=== PATIENT | male | born 1935 | race Caucasian/White ===

== ENCOUNTER 2016-09-20 18:39 | Emergency (ER) | payer MEDICARE ==
[~2016-09-20] VITALS: Ht 160 cm; Wt 61.0 kg
[~2016-09-20 18:39] MED LIST: ATEN50 PO; DOCU1CAP39 PO; HYDR10TA23 PO; OXYC1SOL5 PO; PANT20 PO; PRED10 PO; THERM PO
[2016-09-20 18:44] VITALS: BP 128/78; PULSE 73; RESP 16; TEMP 98.3; O2SAT 98
[2016-09-20 19:00] VITALS: BP_SYST 166; BP_SYST 168; BP_DIAS 90; BP_DIAS 91; PULSE 72; RESP 18; O2SAT 98
[2016-09-20] MEDS ORDERED: DOXA1TAB34 PO (19:10)
[2016-09-20] MEDS ORDERED: PRED10 PO (19:11)
[2016-09-20] MEDS ORDERED: ATEN50TA PO (19:11)
[2016-09-20] MEDS ORDERED: SODIUM CHLOR 0.9% 1000 ML INJ 1,000 ML IV SCH (19:30)
[2016-09-20] MEDS ORDERED: MORPHINE SULFATE 4 MG/ML INJ IV PUSH ONE ×2 (19:30→22:45)
[2016-09-20] MEDS ORDERED: ONDANSETRON HCL 4 MG/2 ML VIAL IVP ONE (19:30)
[2016-09-20 19:51] LABS: BLOOD, URINE SMALL (NEG); GLUCOSE,URINE NEG (NEG); KETONE, URINE NEG (NEG); NITRITE,URINE NEG (NEG); PH, URINE 5.5 (5.0-8.5)
--- NOTE | 2016-09-20 19:52 | PD ---
HPI Chief Complaint: Pain: Acute or Chronic Time Seen by Provider: 19:14 Travel History International Travel<30 days: No Contact w/Intl Traveler<30days: No Traveled to known affect area: No History of Present Illness HPI 81-year-old male presents to the emergency department by private transportation for complaint of low back pain. Patient underwent abdominal aortic aneurysm repair in 2014. Patient has done well. Patient has history of high blood pressure and tobacco use. Patient denies history of dyslipidemia or diabetes. Patient states the pain is activated and worsened by movement and at rest has no pain. No bladder or bowel dysfunction. No report of lower extremity numbness tingling or weakness or saddle anesthesia. Patient states pain with movement 7/10 in intensity. Asians had no chest pain or shortness of breath. Patient was seen by chiropractor ultrasound was done and showed a small proximal abdominal aortic aneurysmal dilatation of 3.1 cm performed 09/17/16. Symptoms are not worsening. Family members are planning on taking the patient to [place] and wanted to have him checked out before traveling. ON LICENSE OF [facility] Past Medical History Narrative Medical Hypertension, migraines, kidney stones, abdominal aortic aneurysm status post rupture and repair, tobaccoism,: Nursing notes reviewed Arthritis: Yes Asthma: No Autoimmune Disease: No Heart Rhythm Problems: No Cancer: No Cardiovascular Problems: Yes High Cholesterol: No Chest Pain: No Congestive Heart Failure: No COPD: No Cerebrovascular Accident: No Diminished Hearing: No Endocrine: No Gastrointestinal Disorders: Yes GERD: Yes Genitourinary: Yes Hiatal Hernia: No Hypertension: Yes Immune Disorder: No Kidney Stones: Yes Musculoskeletal: Yes Neurologic: Yes Psychiatric: No Reproductive: No Respiratory: Yes Migraines: Yes Renal Failure: No Seizures: No Sleep Apnea: No Ulcer: No Tetanus Vaccination: > 5 Years Influenza Vaccination: No Past Surgical History Abdominal Aneurysm Repair: Yes (2014) Abdominal Surgery: Yes (appendectomy and AAA repair) Cardiac Surgery: No Ear Surgery: No Endocrine Surgery: No Eye Surgery: No Genitourinary Surgery: No Gynecologic Surgery: No Oral Surgery: No Thoracic Surgery: No Other Surgery: Yes Social History Alcohol Use: No Tobacco Use: Yes (1 cigarette daily) Substance Use: No Allergies-Medications (Allergen,Severity, Reaction): Coded Allergies: No Known Allergies (Unverified , 09/20/16) Reported Meds & Prescriptions Reported Meds & Active Scripts Active Medrol Dosepak (Methylprednisolone) 4 Mg Dspk 4 Mg PO DIRECTED Per Pharmacist direction Lortab (Hydrocodone-Acetaminophen) 5-325 Mg Tab 1 Tab PO Q6H PRN Reported Prednisone 10 Mg Tab 10 Mg PO DAILY Atenolol 50 Mg Tab 50 Mg PO DAILY Doxazosin (Doxazosin Mesylate) 4 Mg Tab 4 Mg PO HS Review of Systems Except as stated in HPI: all other systems reviewed are Neg Physical Exam Narrative GENERAL: Well-developed well-nourished male in no acute distress no respiratory distress SKIN: Warm and dry. HEAD: Normocephalic. EYES: No scleral icterus. No injection or drainage. NECK: Supple, trachea midline. No JVD or lymphadenopathy. CARDIOVASCULAR: Regular rate and rhythm without murmurs, gallops, or rubs. Bilateral radial and dorsalis pedis pulses 2+ to palpation. RESPIRATORY: Breath sounds equal bilaterally. No accessory muscle use. GASTROINTESTINAL: Abdomen soft, non-tender, nondistended. Abdomen is soft nontender no guarding or rebound no palpable pulsatile mass. MUSCULOSKELETAL: No cyanosis, or edema. BACK: Nontender without obvious deformity except for reproducible tenderness over the left SI joint without soft tissue swelling. No CVA tenderness. Data Data Last Documented VS Vital Signs Date Time Temp Pulse Resp B/P Pulse Ox O2 Delivery O2 Flow Rate FiO2 09/21/16 00:10 64 18 167/82 100 Room Air 09/20/16 18:44 98.3 Orders Basic Metabolic Panel (Bmp) (09/20/16 19:28) Complete Blood Count With Diff (09/20/16 19:28) Lipase (09/20/16 19:28) Ua Includes Microscopic (09/20/16 19:28) Iv Access Insert/Monitor (09/20/16 19:28) Ecg Monitoring (09/20/16 19:28) Oximetry (09/20/16 19:28) Morphine Inj (Morphine Inj) (09/20/16 19:30) Ondansetron Inj (Zofran Inj) (09/20/16 19:30) Sodium Chlor 0.9% 1000 Ml Inj (Ns 1000 M (09/20/16 19:30) Cta Thor Abd Aorta W Iv C W3d (09/20/16 ) Iodixanol 320 Inj (Rad Ct) (Visipaque 32 (09/20/16 20:52) Sodium Chlor 0.9% 1000 Ml Inj (Ns 1000 M (09/20/16 22:45) Morphine Inj (Morphine Inj) (09/20/16 22:45) Labs Laboratory Tests Test 09/20/16 19:40 White Blood Count 12.2 TH/MM3 Red Blood Count 4.13 MIL/MM3 Hemoglobin 10.9 GM/DL Hematocrit 33.8 % Mean Corpuscular Volume 81.8 FL Mean Corpuscular Hemoglobin 26.4 PG Mean Corpuscular Hemoglobin 32.3 % Concent Red Cell Distribution Width 14.3 % Platelet Count 186 TH/MM3 Mean Platelet Volume 9.2 FL Neutrophils (%) (Auto) 80.5 % Lymphocytes (%) (Auto) 9.2 % Monocytes (%) (Auto) 5.1 % Eosinophils (%) (Auto) 3.2 % Basophils (%) (Auto) 2.0 % Neutrophils # (Auto) 9.9 TH/MM3 Lymphocytes # (Auto) 1.1 TH/MM3 Monocytes # (Auto) 0.6 TH/MM3 Eosinophils # (Auto) 0.4 TH/MM3 Basophils # (Auto) 0.2 TH/MM3 CBC Comment DIFF FINAL Differential Comment Urine Color YELLOW Urine Turbidity CLEAR Urine pH 5.5 Urine Specific [place] 1.017 Urine Protein NEG mg/dL Urine Glucose (UA) NEG mg/dL Urine Ketones NEG mg/dL Urine Occult Blood SMALL Urine Nitrite NEG Urine Bilirubin NEG Urine Leukocyte Esterase NEG Urine Squamous Epithelial 0-5 /hpf Cells Sodium Level 143 MEQ/L Potassium Level 4.4 MEQ/L Chloride Level 108 MEQ/L Carbon Dioxide Level 26.2 MEQ/L Anion Gap 9 MEQ/L Blood Urea Nitrogen 34 MG/DL Creatinine 1.90 MG/DL Estimat Glomerular Filtration 34 ML/MIN Rate Random Glucose 113 MG/DL Calcium Level 8.8 MG/DL Lipase 326 U/L [facility] Medical Decision Making Medical Screen Exam Complete: Yes Emergency Medical Condition: Yes Medical Record Reviewed: Yes Interpretation(s) Last Impressions Aorta CTA 09/20/16 0000 Signed Impressions: Service Date/Time: Tuesday, September 20, 2016 20:21 - CONCLUSION: 1. Infrarenal abdominal aortic aneurysm repair. No recurrent aneurysm. No dissection or evidence of leak. 2. Renal atrophy and this does appear slightly worse on the left in the antrum. 3. Unchanged left upper lobe pulmonary nodule. 4. Coronary artery calcification again noted. 5. Previous cholecystectomy. José Manuel Serna MD CBC & BMP Diagram 09/20/16 19:40 Vital Signs Date Time Temp Pulse Resp B/P Pulse Ox O2 Delivery O2 Flow Rate FiO2 09/20/16 21:00 70 18 148/87 98 Room Air 09/20/16 19:58 65 20 151/84 96 Room Air 09/20/16 19:56 20 09/20/16 19:00 72 18 166/91 98 Room Air 168/90 09/20/16 18:44 98.3 73 16 128/78 98 Differential Diagnosis Musculoskeletal pain, sacroiliitis, renal colic, UTI, abdominal aortic/iliac aneurysm, dissection Narrative Course 81-year-old male with recent outpatient abdominal ultrasound 09/17/16 attention aorta with evidence of 3.1 cm proximal abdominal aortic mild aneurysmal dilatation and bilateral iliac arterial dilatation 1.6 and 1.9; review of medical records indicates the patient was treated for ruptured abdominal aortic aneurysm in 2014 at which time CTA identified as well as ruptured 6.9 abdominal aortic aneurysm aneurysmal dilatation at the level of the renal arteries 3.4 x 3.3 and iliac vessel dilatation of right distal common iliac tube centimeters and left distal common iliac vessels 1.6 cm. These values seem essentially unchanged from findings by ultrasound performed just 09/17/16. Patient has reproducible left SI joint tenderness. Plan will be to obtain basic labs and perform imaging study assuming renal function is allowable. Patient resting comfortably states pain medication has worn off somewhat and blood pressure is mildly elevated given bolus of normal saline 1 L in view of receiving recent contrast with renal insufficiency; additional dose of pain medication administered Patient is stable for outpatient management and follow-up with his primary care provider regarding renal function. Imaging shows no evidence of recurrent aneurysm or leak from previous repair site or dissection. Patient stable for outpatient management. Patient is encouraged to discontinue any use of nonsteroidal anti-inflammatory medications. Diagnosis Primary Impression: Sacroiliitis Additional Impressions: H/O abdominal aortic aneurysm repair H/O abdominal aortic aneurysm Renal insufficiency Referrals: Primary Care Physician call for appointment Patient Instructions: General Instructions, Narcotic given in the ED Additional Instructions: Increase fluid hydration Do not use any nonsteroidal anti-inflammatory medication such as ibuprofen/Advil /Motrin or Naprosyn/naproxen/Aleve Take pain medication as prescribed as needed for low back pain/sacroiliitis Complete Medrol dosepak as prescribed Follow-up with your primary care provider regarding follow up of kidney function Return to the emergency for free concerns or change in condition Med/Other Pt SpecificInfo: Prescription(s) given Scripts Methylprednisolone Dosepak (Medrol Dosepak)4 Mg Dspk4 Mg PO DIRECTED #1 DSPK Ref 0 Per Pharmacist direction Prov:Silva Villegas MD 09/20/16 Hydrocodone-Acetaminophen (Lortab)5-325 Mg Tab1 Tab PO Q6H PRN (PAIN) #12 TAB Ref 0 Prov:Silva Villegas MD 09/20/16 Disposition: 01 DISCHARGE HOME Condition: Stable Silva Villegas MD Sep 20, 2016 19:52
[2016-09-20 19:53] LABS: AUTOMATED NEUTROPHIL # 9.9 TH/MM3 (1.8-7.7); BASOPHIL # 0.2 TH/MM3 (0-0.2); EOSINOPHIL # 0.4 TH/MM3 (0-0.4); EOSINOPHIL % 3.2 % (0.0-4.0); HEMATOCRIT 33.8 % (39.0-51.0); LYMPH % 9.2 % (9.0-44.0); LYMPHOCYTE # 1.1 TH/MM3 (1.0-4.8); MEAN CELL VOLUME 81.8 FL (80.0-100.0); MEAN CORPUSCULAR HEMOGLOBIN 26.4 PG (27.0-34.0); MEAN CORPUSCULAR HGB CONC 32.3 % (32.0-36.0); MONO % 5.1 % (0.0-8.0); NEUT % 80.5 % (16.0-70.0); PLATELET COUNT 186 TH/MM3 (150-450); RED BLOOD COUNT 4.13 MIL/MM3 (4.50-5.90); RED CELL DISTRIBUTION WIDTH 14.3 % (11.6-17.2); WHITE BLOOD COUNT 12.2 TH/MM3 (4.0-11.0)
[2016-09-20 19:58] VITALS: BP 151/84; PULSE 65; RESP 20; O2SAT 96
[2016-09-20 20:01] LABS: POTASSIUM 4.4 MEQ/L (3.5-5.1)
[2016-09-20 20:04] LABS: BICARBONATE 26.2 MEQ/L (21.0-32.0)
[2016-09-20 20:05] LABS: SQUAMOUS EPITHELIAL CELL URINE 0-5 /hpf (0-5); URINE COLOR YELLOW (YELLW/STRAW)
[2016-09-20 20:17] LABS: HEMO FLAGS DIFF FINAL
[2016-09-20] MEDS ORDERED: IODIXANOL 320 MG/ML 10 ML VIAL (for Rad CT) IV ONE (20:52)
[2016-09-20 21:00] VITALS: BP 148/87; PULSE 70; RESP 18; O2SAT 98
[2016-09-20 21:50] VITALS: BP 165/81; PULSE 64; RESP 18; O2SAT 98
--- NOTE | 2016-09-20 22:22 | RADHPO ---
EXAM DATE/TIME: 09/20/2016 20:21 [facility] COMPARISON: CTA THORACIC ABDOMINAL AORTA W 3D RECON, March 15, 2015, 8:04. INDICATIONS : Lower back pains. Patient has history of abdominal aortic aneurysm. IV CONTRAST: 50 cc Visipaque (iodixanol) IV RADIATION DOSE: 8.96 CTDIvol (mGy) MEDICAL HISTORY : Aneurysm, abdominal. Hypertension. Renal calculi. SURGICAL HISTORY : Abdominal aortic aneurysm repair. Appendectomy. ENCOUNTER: Initial ACUITY: 2 days PAIN SCALE: 8/10 LOCATION: Bilateral lower back. TECHNIQUE: Volumetric scanning was performed using a multi-row detector CT scanner. The data was post processed with a variety of visualization algorithms including full volume maximum intensity projection, multi -planar sliding thin slab reformation, curved planar reformation, and surface rendering techniques. Using automated exposure control and adjustment of the mA and/or kV according to patient size, radiat ion dose was kept as low as reasonably achievable to obtain optimal diagnostic quality images. FINDINGS: Since the prior CT, patient is now status post repair of an infrarenal abdominal aortic aneurysm. Nor mal caliber vessel is seen currently. There is mild mural thrombus. No dissection. No periaortic nancy a or hematoma seen. Liver, spleen, pancreas and adrenal glands within normal limits. Mild atrophy of both kidneys and lef t renal atrophy appears modestly worse in the interim. There is a 10 mm nodule the left upper lobe, unchanged. Coronary artery calcification again noted. CONCLUSION: 1. Infrarenal abdominal aortic aneurysm repair. No recurrent aneurysm. No dissection or evidence of l eak. 2. Renal atrophy and this does appear slightly worse on the left in the antrum. 3. Unchanged left upper lobe pulmonary nodule. 4. Coronary artery calcification again noted. 5. Previous cholecystectomy. José Manuel Serna MD on September 20, 2016 at 22:15 Board Certified Radiologist. This report was verified electronically.
[2016-09-20] MEDS ORDERED: SODIUM CHLOR 0.9% 1000 ML INJ 1,000 ML IV ONE (22:45)
[2016-09-20 23:00] VITALS: BP 160/92; PULSE 66; RESP 18; O2SAT 98
[2016-09-20] MEDS ORDERED: HYDR-3533 PO (23:08)
[2016-09-20] MEDS ORDERED: MEDR4PAK PO (23:08)
[2016-09-21 00:10] VITALS: BP 167/82; PULSE 64; RESP 18; O2SAT 100
== END 2016-09-21 00:22 | disposition home or self-care (01) ==
LOC: PHED 18:39
DX: M46.1 Sacroiliitis, not elsewhere classified (principal); N28.9 Disorder of kidney and ureter, unspecified; I10 Essential (primary) hypertension; F17.210 Nicotine dependence, cigarettes, uncomplicated; Z87.442 Personal history of urinary calculi
CPT/HCPCS: 71275; 74174; 80048; 81001; 83690; 85025; 96361; 96374; 96375; 99285; J2270; J2405; J7030; Q9967

== ENCOUNTER 2016-11-16 16:29 | Inpatient (IN) | payer OTHER, MEDICARE ==
[~2016-11-16] VITALS: Ht 160 cm; Wt 61.5 kg
[~2016-11-16 16:29] MED LIST changes: -ATEN50 PO; +ATEN50TA PO; -DOCU1CAP39 PO; +DOXA1TAB34 PO; +HYDR-3533 PO; -HYDR10TA23 PO; +MEDR4PAK PO; -OXYC1SOL5 PO; -PANT20 PO; -THERM PO
[2016-11-16] MEDS ORDERED: SODIUM CHLOR 0.9% 1000 ML INJ 1,000 ML IV ONE (16:43)
[2016-11-16 16:45] VITALS: BP 166/91; PULSE 128; RESP 18; TEMP 101.2; O2SAT 97
[2016-11-16] MEDS ORDERED: ACETAMINOPHEN 325 MG TAB PO ONE (16:45)
--- NOTE | 2016-11-16 16:46 | PD ---
HPI Chief Complaint: shaking chills Time Seen by Provider: 16:43 Travel History International Travel<30 days: No Contact w/Intl Traveler<30days: No Traveled to known affect area: No History of Present Illness HPI 81-year-old male patient presents to the ER today because he wasn't feeling well for the last day or 2, having chills, fevers, coughing. He denies any shortness of breath, chest pains, vomiting, or any other symptoms. He does not know any sick contacts. Modifying Factors: None Associated Signs & Symptoms: Shaking chills, fevers, coughing Risk Factors: None PFSH Past Medical History Arthritis: Yes Asthma: No Autoimmune Disease: No Heart Rhythm Problems: No Cancer: No Cardiovascular Problems: Yes High Cholesterol: No Chest Pain: No Congestive Heart Failure: No COPD: No Cerebrovascular Accident: No Diminished Hearing: No Endocrine: No Gastrointestinal Disorders: Yes GERD: Yes Genitourinary: Yes Hiatal Hernia: No Hypertension: Yes Immune Disorder: No Kidney Stones: Yes Musculoskeletal: Yes Neurologic: Yes Psychiatric: No Reproductive: No Respiratory: Yes Migraines: Yes Renal Failure: No Seizures: No Sleep Apnea: No Ulcer: No Past Surgical History Abdominal Aneurysm Repair: Yes (2014) Abdominal Surgery: Yes (appendectomy and AAA repair) Cardiac Surgery: No Ear Surgery: No Endocrine Surgery: No Eye Surgery: No Genitourinary Surgery: No Gynecologic Surgery: No Oral Surgery: No Thoracic Surgery: No Other Surgery: Yes Social History Alcohol Use: No Tobacco Use: Yes (1 cigarette daily) Substance Use: No Allergies-Medications (Allergen,Severity, Reaction): Coded Allergies: No Known Allergies (Unverified , 11/16/16) Reported Meds & Prescriptions Reported Meds & Active Scripts Active Reported Atorvastatin (Atorvastatin Calcium) 40 Mg Tab 40 Mg PO HS Prednisone 10 Mg Tab 10 Mg PO DAILY Atenolol 50 Mg Tab 50 Mg PO DAILY Doxazosin (Doxazosin Mesylate) 4 Mg Tab 4 Mg PO HS Review of Systems Except as stated in HPI: all other systems reviewed are Neg Physical Exam Narrative GENERAL: [Well-developed elderly male patient currently in moderate distress, shaking, awake and oriented 3. SKIN: Focused skin assessment warm/dry. HEAD: Atraumatic. Normocephalic. EYES: Pupils equal and round. No scleral icterus. No injection or drainage. ENT: No nasal bleeding or discharge. Mucous membranes pink and moist. NECK: Trachea midline. No JVD. CARDIOVASCULAR: Regular rate and rhythm. No murmur appreciated. RESPIRATORY: No accessory muscle use. Clear to auscultation. Breath sounds equal bilaterally. GASTROINTESTINAL: Abdomen soft, non-tender, nondistended. Hepatic and splenic margins not palpable. MUSCULOSKELETAL: No obvious deformities. No clubbing. No cyanosis. No edema. NEUROLOGICAL: Awake and alert. No obvious cranial nerve deficits. Motor grossly within normal limits. Normal speech. PSYCHIATRIC: Appropriate mood and affect; insight and judgment normal. Data Data Last Documented VS Vital Signs Date Time Temp Pulse Resp B/P Pulse Ox O2 Delivery O2 Flow Rate FiO2 11/16/16 16:50 101.2 128 18 166/91 97 Room Air Orders Complete Blood Count With Diff (11/16/16 16:43) Comprehensive Metabolic Panel (11/16/16 16:43) Lactic Acid Sepsis Protocol (11/16/16 16:43) Urinalysis - C+S If Indicated (11/16/16 16:43) Influenzae A/B Antigen (11/16/16 16:43) Blood Culture (11/16/16 16:43) Chest, Single Ap (11/16/16 16:43) Blood Glucose (11/16/16 16:43) Ecg Monitoring (11/16/16 16:43) Iv Access Insert/Monitor (11/16/16 16:43) Oximetry (11/16/16 16:43) Oxygen Administration (11/16/16 16:43) Acetaminophen (Tylenol) (11/16/16 16:45) Sodium Chlor 0.9% 1000 Ml Inj (Ns 1000 M (11/16/16 16:43) Vancomycin Inj (Vancomycin Inj) (11/16/16 17:31) Piperacil-Tazo 4.5 Gm Premix (Zosyn 4.5 (11/16/16 17:31) Labs Laboratory Tests Test 11/16/16 11/16/16 16:50 16:55 White Blood Count 14.4 TH/MM3 Red Blood Count 4.52 MIL/MM3 Hemoglobin 11.7 GM/DL Hematocrit 36.1 % Mean Corpuscular Volume 80.0 FL Mean Corpuscular Hemoglobin 25.8 PG Mean Corpuscular Hemoglobin 32.3 % Concent Red Cell Distribution Width 14.7 % Platelet Count 210 TH/MM3 Mean Platelet Volume 9.8 FL Neutrophils (%) (Auto) 83.7 % Lymphocytes (%) (Auto) 9.9 % Monocytes (%) (Auto) 5.2 % Eosinophils (%) (Auto) 0.9 % Basophils (%) (Auto) 0.3 % Neutrophils # (Auto) 12.2 TH/MM3 Lymphocytes # (Auto) 1.4 TH/MM3 Monocytes # (Auto) 0.7 TH/MM3 Eosinophils # (Auto) 0.1 TH/MM3 Basophils # (Auto) 0.0 TH/MM3 CBC Comment DIFF FINAL Differential Comment Sodium Level 139 MEQ/L Potassium Level 4.3 MEQ/L Chloride Level 105 MEQ/L Carbon Dioxide Level 23.8 MEQ/L Anion Gap 10 MEQ/L Blood Urea Nitrogen 26 MG/DL Creatinine 2.20 MG/DL Estimat Glomerular Filtration 29 ML/MIN Rate Random Glucose 121 MG/DL Calcium Level 9.0 MG/DL Total Bilirubin 0.3 MG/DL Aspartate Amino Transf 21 U/L (AST/SGOT) Alanine Aminotransferase 30 U/L (ALT/SGPT) Alkaline Phosphatase 101 U/L Total Protein 8.0 GM/DL Albumin 3.3 GM/DL Lactic Acid Level 5.4 mmol/L MDM Medical Decision Making Medical Screen Exam Complete: Yes Emergency Medical Condition: Yes Medical Record Reviewed: Yes Interpretation(s) Last 24 hours Impressions Chest X-Ray 11/16/16 1643 Signed Impressions: Service Date/Time: Wednesday, November 16, 2016 16:51 - CONCLUSION: No acute disease. José Manuel Hernández MD Laboratory Tests Test 11/16/16 11/16/16 16:50 16:55 White Blood Count 14.4 TH/MM3 (4.0-11.0) Hemoglobin 11.7 GM/DL (13.0-17.0) Hematocrit 36.1 % (39.0-51.0) Mean Corpuscular Hemoglobin 25.8 PG (27.0-34.0) Neutrophils (%) (Auto) 83.7 % (16.0-70.0) Neutrophils # (Auto) 12.2 TH/MM3 (1.8-7.7) Blood Urea Nitrogen 26 MG/DL (7-18) Creatinine 2.20 MG/DL (0.60-1.30) Estimat Glomerular Filtration 29 ML/MIN (>89) Rate Random Glucose 121 MG/DL (74-106) Albumin 3.3 GM/DL (3.4-5.0) Lactic Acid Level 5.4 mmol/L (0.4-2.0) Differential Diagnosis Fevers, chills, coughingpneumonia versus influenza versus sepsis versus bronchitis Narrative Course Lab work shows significant leukocytosis with lactate level V. Chest x-ray did not show any signs of acute pulmonary processes. IV antibiotics are initiated after cultures are done. At this point, my plan would be to admit the patient for sepsis. Case is discussed with Dr. Jenkins for admission. Diagnosis Primary Impression: Sepsis Additional Impression: Elevated lactic acid level Admitting Information Admitting Physician Requests: Admit Alexandru Murphy MD Nov 16, 2016 16:46
[2016-11-16 16:50] VITALS: BP 166/91; PULSE 128; RESP 18; TEMP 101.2; O2SAT 97
--- NOTE | 2016-11-16 17:02 | RADRPT ---
EXAM DATE/TIME: 11/16/2016 16:51 [facility] COMPARISON: CHEST SINGLE AP, March 28, 2015, 15:21. INDICATIONS : Fever and shortness of breath. MEDICAL HISTORY : Aneurysm, abdominal. Hypertension. Renal calculi. SURGICAL HISTORY : Abdominal aortic aneurysm repair. Appendectomy. ENCOUNTER: Initial ACUITY: 1 day PAIN SCORE: 0/10 LOCATION: Bilateral chest FINDINGS: A single view of the chest demonstrates the lungs to be symmetrically aerated without evidence of mas s, infiltrate or effusion. The cardiomediastinal contours are unremarkable. Osseous structures are intact. CONCLUSION: No acute disease. José Manuel Hernández MD on November 16, 2016 at 16:59 Board Certified Radiologist. This report was verified electronically.
[2016-11-16 17:08] LABS: AUTOMATED NEUTROPHIL # 12.2 TH/MM3 (1.8-7.7); BASOPHIL % 0.3 % (0.0-2.0); EOSINOPHIL # 0.1 TH/MM3 (0-0.4); EOSINOPHIL % 0.9 % (0.0-4.0); HEMATOCRIT 36.1 % (39.0-51.0); HEMO FLAGS DIFF FINAL; LYMPH % 9.9 % (9.0-44.0); LYMPHOCYTE # 1.4 TH/MM3 (1.0-4.8); MEAN CORPUSCULAR HEMOGLOBIN 25.8 PG (27.0-34.0); MEAN CORPUSCULAR HGB CONC 32.3 % (32.0-36.0); MONO % 5.2 % (0.0-8.0); NEUT % 83.7 % (16.0-70.0); PLATELET COUNT 210 TH/MM3 (150-450); RED BLOOD COUNT 4.52 MIL/MM3 (4.50-5.90); RED CELL DISTRIBUTION WIDTH 14.7 % (11.6-17.2); WHITE BLOOD COUNT 14.4 TH/MM3 (4.0-11.0)
[2016-11-16 17:19] LABS: CHLORIDE 105 MEQ/L (98-107); POTASSIUM 4.3 MEQ/L (3.5-5.1); SODIUM (NA) 139 MEQ/L (136-145)
[2016-11-16 17:23] LABS: ANION GAP 10 MEQ/L (5-15); BICARBONATE 23.8 MEQ/L (21.0-32.0); BLOOD UREA NITROGEN 26 MG/DL (7-18)
[2016-11-16 17:26] LABS: ALT (GPT) 30 U/L (12-78); AST (GOT) 21 U/L (15-37); GLOMERULAR FILTRATION RATE 29 ML/MIN (>89)
[2016-11-16] MEDS ORDERED: ATOR40TA16 PO (17:27)
[2016-11-16 17:28] LABS: TOTAL BILIRUBIN ADULT 0.3 MG/DL (0.2-1.0)
[2016-11-16 17:29] LABS: ALKALINE PHOSPHATASE 101 U/L (45-117)
[2016-11-16] MEDS ORDERED: VANCOMYCIN INJ 1,000 MG in SODIUM CHLOR 0.9% 250 ML INJ 250 ML IV STA (17:31)
[2016-11-16] MEDS ORDERED: PIPERACIL-TAZO 4.5 GM PREMIX 100 ML IV STA (17:31)
[2016-11-16 17:51] LABS: BLOOD, URINE SMALL (NEG); GLUCOSE,URINE NEG (NEG); KETONE, URINE NEG (NEG); NITRITE,URINE NEG (NEG); PH, URINE 5.5 (5.0-8.5)
[2016-11-16 18:01] LABS: URINE COLOR YELLOW (YELLW/STRAW)
[2016-11-16 18:02] LABS: COMMENT (UR) CULT NOT INDICATED; CULTURE IF INDICATED CULT NOT INDICATED; RBC, URINE 0-3 /hpf (0-3); SQUAMOUS EPITHELIAL CELL URINE 0-5 /hpf (0-5); WBC, URINE 0-2 /hpf (0-5)
[2016-11-16 18:30] VITALS: BP 148/76; PULSE 125; RESP 20; TEMP 103.1; O2SAT 98
[2016-11-16] MEDS ORDERED: Vancomycin Consult Pharmacy 1 EA OTHER SCH (18:30)
[2016-11-16] MEDS ORDERED: VANCOMYCIN INJ 1,000 MG in SODIUM CHLOR 0.9% 250 ML INJ 250 ML IV SCH (18:30)
--- NOTE | 2016-11-16 18:36 | HHI.HP ---
[facility] Primary [facility] Physician No Primary Care Physician Admission Diagnosis sepsis Diagnoses: Chief Complaint: Rigors Travel History International Travel<30 Days: No Contact w/Intl Traveler <30 Da: [place] Country Traveled to: Moved here from [place] within the past month. Traveled to Known Affected Are: No Sepsis Criteria Septic Shock Criteria: Lactic acid >=4 Criteria Outcome: Meets SIRS criteria History of Present Illness Patient is an 89 year old man with a history of HTN who had 2 days of fevers and chills at home. He was jevon to the er by his . No recent travel ( came from [place] over a month ago). Complains of headache but no meningel signs on exam. He has a fever of 101.2 and tachycardia with elevated white count and lactic acid in ER. He is alert and oriented and he is having rigors in the ER. He denies dysuria, cough, chest pain, nausea or diarrhea. No recent procedures and no dental pain. He is admitted for further evaluation and empiric antibiotics. Review of Systems Constitutional: COMPLAINS OF: Fever, Chills, DENIES: Diaphoretic episodes, Fatigue, Weight gain, Weight loss, Dizziness, Change in appetite, Night Sweats Endocrine: DENIES: Heat/cold intolerance, Polydipsia, Polyuria, Polyphagia Eyes: DENIES: Blurred vision, Diplopia, Eye inflammation, Eye pain, Vision loss , Photosensitivity, Double Vision Ears, nose, mouth, throat: DENIES: Tinnitus, Hearing loss, Vertigo, Nasal discharge, Oral lesions, Throat pain, Hoarseness, Ear Pain, Running Nose, Epistaxis, Sinus Pain, Toothache, Odynophagia Respiratory: DENIES: Apneas, Cough, Snoring, Wheezing, Hemoptysis, Sputum production, Shortness of breath Cardiovascular: DENIES: Chest pain, Palpitations, Syncope, Dyspnea on Exertion , PND, Lower Extremity Edema, Orthopnea, Claudication Gastrointestinal: DENIES: Abdominal pain, Black stools, Bloody stools, Constipation, Diarrhea, Nausea, Vomiting, Difficulty Swallowing, Anorexia Genitourinary: DENIES: Sexual dysfunction, Urinary frequency, Urinary incontinence, Urgency, Hematuria, Dysuria, Nocturia, Penile Discharge, Testicular Pain, Testicular Swelling Musculoskeletal: DENIES: Joint pain, Muscle aches, Stiffness, Joint Swelling, Back pain, Neck pain Integumentary: DENIES: Abnormal pigmentation, Nail changes, Pruritus, Rash Hematologic/lymphatic: DENIES: Bruising, Lymphadenopathy Immunologic/allergic: DENIES: Eczema, Urticaria Neurologic: DENIES: Abnormal gait, Headache, Localized weakness, Paresthesias, Seizures, Speech Problems, Tremor, Poor Balance Psychiatric: DENIES: Anxiety, Confusion, Mood changes, Depression, Hallucinations, Agitation, Suicidal Ideation, Homicidal Ideation, Delusions Except as stated in HPI: all other systems reviewed are Neg Past Family Social History Past Medical History HTN DVT Past Surgical History AAA repair Reported Medications Reviewed in the EMR, unsure of why he is taking steroids Allergies: Coded Allergies: No Known Allergies (Unverified , 11/16/16) Active Ordered Medications Reviewed in the EMR Family History Unknown per patient Social History , no tobacco no Etoh Physical Exam Vital Signs Vital Signs Date Time Temp Pulse Resp B/P Pulse Ox O2 Delivery O2 Flow Rate FiO2 11/16/16 16:50 101.2 128 18 166/91 97 Room Air 11/16/16 16:45 97 Room Air 11/16/16 16:45 101.2 128 18 166/91 97 11/16/16 16:45 97 Room Air Physical Exam GENERAL: This is a well-nourished, well-developed patient, rigors, eyes closed, alert SKIN: No rashes, ecchymoses or lesions. Cool and dry. HEAD: Atraumatic. Normocephalic. No temporal or scalp tenderness. EYES: Pupils equal round and reactive. Extraocular motions intact. No scleral icterus. No injection or drainage. ENT: Nose without bleeding, purulent drainage or septal hematoma. Throat without erythema, tonsillar hypertrophy or exudate. Uvula midline. Airway patent. NECK: Trachea midline. No JVD or lymphadenopathy. Supple, nontender, no meningeal signs. CARDIOVASCULAR:sinus tachycardia without murmurs, gallops, or rubs. RESPIRATORY: Clear to auscultation. Breath sounds equal bilaterally. No wheezes , rales, or rhonchi. GASTROINTESTINAL: Abdomen soft, non-tender, nondistended. No hepato-splenomegaly , or palpable masses. No guarding. MUSCULOSKELETAL: Extremities without clubbing, cyanosis, or edema. No joint tenderness, effusion, or edema noted. No calf tenderness. Negative Homans sign bilaterally. NEUROLOGICAL: Awake and alert. Cranial nerves II through XII intact. Motor and sensory grossly within normal limits. Five out of 5 muscle strength in all muscle groups. Normal speech. Laboratory Laboratory Tests Test 11/16/16 11/16/16 11/16/16 16:50 16:55 17:35 White Blood Count 14.4 Red Blood Count 4.52 Hemoglobin 11.7 Hematocrit 36.1 Mean Corpuscular Volume 80.0 Mean Corpuscular Hemoglobin 25.8 Mean Corpuscular Hemoglobin 32.3 Concent Red Cell Distribution Width 14.7 Platelet Count 210 Mean Platelet Volume 9.8 Neutrophils (%) (Auto) 83.7 Lymphocytes (%) (Auto) 9.9 Monocytes (%) (Auto) 5.2 Eosinophils (%) (Auto) 0.9 Basophils (%) (Auto) 0.3 Neutrophils # (Auto) 12.2 Lymphocytes # (Auto) 1.4 Monocytes # (Auto) 0.7 Eosinophils # (Auto) 0.1 Basophils # (Auto) 0.0 CBC Comment DIFF FINAL Differential Comment Sodium Level 139 Potassium Level 4.3 Chloride Level 105 Carbon Dioxide Level 23.8 Anion Gap 10 Blood Urea Nitrogen 26 Creatinine 2.20 Estimat Glomerular Filtration 29 Rate Random Glucose 121 Calcium Level 9.0 Total Bilirubin 0.3 Aspartate Amino Transf 21 (AST/SGOT) Alanine Aminotransferase 30 (ALT/SGPT) Alkaline Phosphatase 101 Total Protein 8.0 Albumin 3.3 Lactic Acid Level 5.4 Urine Color YELLOW Urine Turbidity CLEAR Urine pH 5.5 Urine Specific [place] 1.016 Urine Protein TRACE Urine Glucose (UA) NEG Urine Ketones NEG Urine Occult Blood SMALL Urine Nitrite NEG Urine Bilirubin NEG Urine Leukocyte Esterase NEG Urine RBC 0-3 Urine WBC 0-2 Urine Squamous Epithelial 0-5 Cells Microscopic Urinalysis Comment CULT NOT INDICATED Date/Time Procedure Status Source Growth 11/16/16 17:00 Influenza Types A,B Antigen (ALEXIS) - Final Complete Nasal Washing NEGATIVE FOR FLU A AND B ANTIGEN.... 11/16/16 16:55 Aerobic Blood Culture Received Blood Peripheral Pending 11/16/16 16:55 Anaerobic Blood Culture Received Blood Peripheral Pending Result Diagram: 11/16/16 1650 11/16/16 1650 Imaging Last Impressions Chest X-Ray 11/16/16 1643 Signed Impressions: Service Date/Time: Wednesday, November 16, 2016 16:51 - CONCLUSION: No acute disease. José Manuel Hernández MD Septic Shock Reassessment Heart: Other (Tachycardia) Lungs: Clear Skin: Warm Peripheral Pulses: Bounding Right Radial Bounding Left Radial Bounding Right Popliteal Bounding Left Popliteal Bounding Right Dorsalis Pedis Bounding Left Dorsalis Pedis Bounding Right Posterior Tibial Bounding Left Posterior Tibial Capillary Refill: Brisk Assessment and Plan Problem List: (1) Sepsis ICD Code: A41.9 Status: Acute Plan: SIRS criteria met, no source ID consulted empiric Rocephin and zosyn echo pending, cta r/o pe cxray, ua wnl, flu negative BC, EKG, Troponin pending no recent travel, no sick contacts (2) Hypertension ICD Code: I10 Status: Acute Plan: Home meds to continue hydralazine prn Assessment and Plan plan of care to be determined by hospital stay Code Status full code Discussed Condition With patient, spouse and ERMD Physician Certification 2 Midnight Certification Type: Admission for Inpatient Services Order for Inpatient Services The services are ordered in accordance with Medicare regulations or non- Medicare payer requirements, as applicable. In the case of services not specified as inpatient-only, they are appropriately provided as inpatient services in accordance with the 2-midnight benchmark. Estimated LOS (days): 4 4 days is the estimated time the patient will need to remain in the hospital, assuming treatment plan goals are met and no additional complications. Post-Hospital Plan: Home Roxana Jenkins MD Nov 16, 2016 18:36
[2016-11-16] MEDS ORDERED: IBUPROFEN 400 MG TAB PO ONE (18:45)
[2016-11-16 19:02] VITALS: BP 153/74; PULSE 128; RESP 22; TEMP 102.9; O2SAT 97
[2016-11-16 19:02] LABS: LACTIC ACID GHOST NOT REPORTABLE
[2016-11-16] MEDS: cefTRIAXone INJ 1,000 MG in SODIUM CHLORIDE 0.9% INJ 100 ML IV SCH (20:12)
[2016-11-16 20:14] LABS: CREATINE KINASE 37 U/L (39-308)
[2016-11-16 20:16] VITALS: BP 118/52; PULSE 129; RESP 22; TEMP 102.6; O2SAT 95
[2016-11-16] MEDS: DOXAZOSIN MESYLATE 4 MG TAB PO SCH (21:00)
[2016-11-16 22:00] VITALS: BP 122/69; PULSE 111; RESP 18; TEMP 100.5; O2SAT 95
[2016-11-17 00:48] VITALS: BP 134/82; PULSE 107; RESP 20; TEMP 96.5; O2SAT 98
[2016-11-17 08:00] VITALS: BP 171/99; PULSE 120; RESP 20; TEMP 101; O2SAT 96
[2016-11-17] MEDS: ATENOLOL 50 MG TAB PO SCH (08:16)
[2016-11-17] MEDS: predniSONE 10 MG TAB PO SCH (08:16)
[2016-11-17] MEDS: hydrALAZINE HCL 20 MG/ML VIAL IV PUSH PRN (08:16)
[2016-11-17] MEDS: cefTRIAXone INJ 1,000 MG in SODIUM CHLORIDE 0.9% INJ 100 ML IV SCH (08:16)
--- NOTE | 2016-11-17 08:29 | EKG ---
Date Performed: 11/16/2016 Time Performed: 16:42:05 PTAGE: 81 years EKG: SINUS TACHYCARDIA PATTERN CONSISTENT WITH PULMONARY DISEASE LEFT ANTERIOR FASCICULAR BLOCK INFERIOR MYOCARDIAL INFARCTION ABNORMAL ECG INTERPRETATION BASED ON A DEFAULT AGE OF 40 YEARS NO PREVIOUS TRACING DOCTOR: Johnnie Ivy Interpretating Date/Time 11/17/2016 08:27:23
[2016-11-17] MEDS ORDERED: NALOXONE HCL 0.4 MG/ML AMP IV PRN (08:30)
[2016-11-17] MEDS ORDERED: ACETAMINOPHEN/HYDROcodone 325 MG/5 MG TAB PO PRN (08:30)
[2016-11-17] MEDS ORDERED: ONDANSETRON HCL 4 MG/2 ML VIAL IV PRN (08:30)
[2016-11-17] MEDS: ACETAMINOPHEN/HYDROcodone 325 MG/10 MG TAB PO PRN ×2 (09:05→17:39)
[2016-11-17] MEDS: ACETAMINOPHEN 325 MG TAB PO PRN (09:06)
--- NOTE | 2016-11-17 11:20 | HHI.PR ---
Subjective Remarks Patient seen and evaluated today in follow-up for sepsis and encephalopathy. Patient does have bacteremia. MAXIMUM TEMPERATURE 102.9. Patient lactic acid has improved. Infectious disease consult is pending Objective Vitals Vital Signs Date Time Temp Pulse Resp B/P Pulse Ox O2 Delivery O2 Flow Rate FiO2 11/17/16 08:00 101.0 120 20 171/99 96 11/17/16 00:48 96.5 107 20 134/82 98 11/16/16 22:00 100.5 111 18 122/69 95 11/16/16 20:16 102.6 129 22 118/52 95 Room Air 11/16/16 19:02 Room Air 11/16/16 19:02 102.9 128 22 153/74 97 Room Air 11/16/16 18:30 103.1 125 20 148/76 98 Room Air 11/16/16 16:50 101.2 128 18 166/91 97 Room Air 11/16/16 16:45 97 Room Air 11/16/16 16:45 101.2 128 18 166/91 97 11/16/16 16:45 97 Room Air I/O 11/16/16 11/16/16 11/16/16 11/17/16 11/17/16 11/17/16 06:59 14:59 22:59 06:59 14:59 22:59 Intake Total 2550 ml 420 ml Output Total 200 ml Balance 2350 ml 420 ml Intake Oral 420 ml IV Total 2550 ml Output Urine Total 200 ml # Voids 2 # Bowel Movements 0 Result Diagram: 11/16/16 1650 11/17/16 0450 Imaging Last Impressions Chest X-Ray 11/16/16 1643 Signed Impressions: Service Date/Time: Wednesday, November 16, 2016 16:51 - CONCLUSION: No acute disease. José Manuel Hernández MD A/P Problem List: (1) Sepsis ICD Code: A41.9 Status: Acute Plan: Sepsis due to bacteremia, cultures continue to grow Continue empiric iv vancomycin and rocephin ID consult pending ct head pending Follow-up 2-D echo (2) Hypertension ICD Code: I10 Status: Acute Plan: Home meds to continue hydralazine Roxana You MD Nov 17, 2016 11:20
[2016-11-17] MEDS: cefTRIAXone INJ 2,000 MG in SODIUM CHLORIDE 0.9% INJ 100 ML IV SCH (11:36)
[2016-11-17 12:00] VITALS: BP 101/72; PULSE 74; RESP 18; TEMP 98.6; O2SAT 98
--- NOTE | 2016-11-17 14:54 | RADRPT ---
EXAM DATE/TIME: 11/17/2016 14:40 [facility] COMPARISON: No previous studies available for comparison. INDICATIONS : Cephalgia. RADIATION DOSE: 62.24 CTDIvol (mGy) MEDICAL HISTORY : Hypertension. Gastroesophageal reflux disease. Renal calculi. SURGICAL HISTORY : Abdominal aortic aneurysm repair. Appendectomy. ENCOUNTER: Initial ACUITY: 1 day PAIN SCALE: 4/10 LOCATION: cranial TECHNIQUE: Multiple contiguous axial images were obtained of the head. Using automated exposure control and adj ustment of the mA and/or kV according to patient size, radiation dose was kept as low as reasonably a chievable to obtain optimal diagnostic quality images. DICOM format image data is available electro nically for review and comparison. FINDINGS: CEREBRUM: The ventricles are normal for age. No evidence of midline shift, mass lesion, hemorrhage or acute in farction. No extra-axial fluid collections are seen. POSTERIOR FOSSA: The cerebellum and brainstem are intact. The 4th ventricle is midline. The cerebellopontine angle i s unremarkable. EXTRACRANIAL: The visualized portion of the orbits is intact. SKULL: The calvaria is intact. No evidence of skull fracture. CONCLUSION: Negative CT scan of the head. Josh Borjas MD FACR on November 17, 2016 at 14:52 Board Certified Radiologist. This report was verified electronically.
[2016-11-17 16:00] VITALS: BP 136/74; PULSE 77; RESP 19; TEMP 98.8; O2SAT 97
[2016-11-17 20:00] VITALS: BP 120/76; PULSE 81; RESP 20; TEMP 98.4; O2SAT 96
[2016-11-17] MEDS ORDERED: DIATRIZOATE MEGLUM/DIATRIZOATE SOD 9 ML CUP PO ONE (20:45)
--- NOTE | 2016-11-17 21:30 | MB ---
cc: MIRIAM MONTE MD DATE OF CONSULTATION 11/17/[address] Jenkins REASON FOR CONSULTATION Sepsis. HISTORY OF PRESENT ILLNESS This is an 81-year-old male who was brought to the emergency department by his because he developed shaking chills. The patient also had other symptoms including headache. The notes that [place] the [place] when the patient suddenly started feeling cold. She took him home and when they got home he continued to have cold feeding and shaking. She wanted to take him to the hospital but he refused and wanted to take Tylenol instead. He agreed with the that if he did not get better she could bring him to the emergency department for evaluation. The patient continued to have chills. His made an agreement with him to come to the hospital parking lot and that if he continued with symptoms he would be taken into the hospital which he agreed. In the packing lot he again had chills and developed a headache and had some sudden facial expression change and was less responsive verbally. The brought him in for evaluation and in the emergency department he had a temperature of 101.2 degrees. He also had tachycardia and white blood cell count was 14.4. He also had acute renal disease and lactic acid level was elevated at 5.4. Blood cultures were taken yesterday and he was started on antibiotics. Blood culture has gram-positive cocci in all four bottles with one bottle identified as strep species. The patient had temperature up to 103 degrees yesterday evening. The patient's noted that he has been complaining of headaches. She also states that he was complaining of some back pain when he would walk. CT scan of the head was performed and was unremarkable. The patient was complaining of cough over the past month. He moved to the from [place] about a month ago. Chest x-ray shows no acute cardiopulmonary disease. PAST MEDICAL HISTORY 1. Hypertension. 2. Deep venous thrombosis. 3. Abdominal aortic aneurysm repair with a tube graft for ruptured abdominal aneurysm in March 2015. ALLERGIES NO KNOWN DRUG ALLERGIES. MEDICATIONS 1. Vancomycin. 2. Ceftriaxone. 3. Prednisone. 4. Tenormin. 5. [place]el 10 p.r.n. 6. Cardura. SOCIAL HISTORY The patient is . Positive tobacco one cigarettes a day. No alcohol. No illicit drugs. FAMILY HISTORY Noncontributory. REVIEW OF SYSTEMS Pertinents mentioned above in history of present illness. Otherwise negative on 10-point review. PHYSICAL EXAMINATION GENERAL: This is a well-developed male who is in no acute distress. He is somewhat somnolent. VITAL SIGNS: Include temperature 98.8, BP 136/74, respirations 19, heart rate 77. HEENT: The head is atraumatic. Extraocular movements grossly intact, pupils reactive to light. No icterus. No conjunctival erythema. Oropharynx moist mucosa without lesions. NECK: Supple without adenopathy. LUNGS: Clear decreased breath sounds. HEART: Regular S1-S2. Heart sounds are distant. No audible murmurs. ABDOMEN: Bowel sounds present, obese, soft, nontender. Midline surgical scar appears intact. BACK: No tenderness on palpation. RECTAL: Not performed. EXTREMITIES: No clubbing or cyanosis or edema. Multiple ecchymotic areas at the upper extremities. SKIN: No rash. NEUROLOGIC: No gross focal findings. Cranial nerves II-XII intact. SKIN: No rash. PSYCHIATRIC: The patient is calm and cooperative. LABORATORY DATA WBC 14.4, platelets 210, hemoglobin 11.7, 83% neutrophils. Creatinine 2.0, BUN 32. Liver function tests normal. IMPRESSION 1. Sepsis due to gram-positive cocci with initial identification of one blood culture bottle showing Streptococcus species. The patient presented with severe sepsis with features including tachycardia, fever, leukocytosis, increased lactic acid, acute renal disease and altered mental status. The patient speaks mostly Romansh but interpretation was available via his and daughter. They seem to think that he may be a little better but he tends to joke around and during my evaluation of him he jumped up while I was examining his back and sort of played around with his daughter and the daughter mentioned that this is the way he tends to act sometimes. 2. Given altered mental status, meningitis would have to be considered. He has already been given IV antibiotics and by this time a lumbar puncture may not be necessary since he appears to be improving. If he has any deterioration consideration would have to be given to lumbar puncture. Also he has had abdominal aortic aneurysm repair and an echocardiogram will be ordered since he potentially could have endocarditis and also a CT scan of the abdomen should be done as well for further evaluation. 3. Continue to treat the patient with vancomycin. 4. Continue to treat the patient with ceftriaxone. 5. Monitor the blood cultures further. CT scan of abdomen and also 2-D echocardiogram order will be followed since it has already been placed. The patient will be followed up by Dr. Berger who will be assuming infectious disease care of the patient beginning tomorrow. Thank you for this consultation. Miriam Monte MD FD/CRISTIN /6:15 PM /8:30 PM
[2016-11-18] VITALS: BP 141/95; PULSE 79; RESP 20; TEMP 100.1; O2SAT 95
--- NOTE | 2016-11-18 00:16 | RADRPT ---
EXAM DATE/TIME: 11/17/2016 23:56 [facility] COMPARISON: CTA THORACIC ABDOMINAL AORTA W 3D RECON, September 20, 2016, 20:21. INDICATIONS : Fever, sepsis. ORAL CONTRAST: Prescribed oral contrast ingested. RADIATION DOSE: 11.52 CTDIvol (mGy) MEDICAL HISTORY : Hypertension. Renal calculi. Aneurysm, abdominal. SURGICAL HISTORY : CABG Abdominal aortic aneurysm repair. ENCOUNTER: Initial ACUITY: 1 day PAIN SCALE: 5/10 LOCATION: abdomen TECHNIQUE: Volumetric scanning of the abdomen was performed. Using automated exposure control and adjustment of the mA and/or kV according to patient size, radiation dose was kept as low as reasonably achievable to obtain optimal diagnostic quality images. DICOM format image data is available electronically for review and comparison. FINDINGS: Coronary artery calcification identified. Small effusion bilaterally and left lower lobe atelectasis and consolidation identified. Cholecystectomy clips are noted. Liver, spleen, pancreas, adrenal gland s are unremarkable. Left kidney is small in size as compared to the right. There is no hydronephrosis . Atherosclerotic calcifications of the aorta and iliac vasculature identified. There is dilatation o f the abdominal aorta measured 4.3 x 3.7 cm in AP and transverse dimension, and dilatation of the ramy ateral common iliac arteries up to 1.7 cm on the right and 1.8 cm on the left. Small bowel and large bowel are unremarkable. No adenopathy. Osseous structures are intact. CONCLUSION: 1. 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 2. Small left kidney. 3. Degenerative changes of the spine are noted and remote compression fractures of L2 and L3 identifi ed. 4. Small pleural effusions bilaterally and left lower lobe atelectasis/consolidation. Refugio Birmingham MD on November 18, 2016 at 0:11 Board Certified Radiologist. This report was verified electronically.
[2016-11-18] MEDS: VANCOMYCIN 1,000 MG/NS 250 ML IV SCH ×2 (01:15)
[2016-11-18] MEDS: DOXAZOSIN MESYLATE 4 MG TAB PO SCH ×2 (01:15→22:27)
[2016-11-18] MEDS: ACETAMINOPHEN 325 MG TAB PO PRN ×5 (01:15→18:20)
[2016-11-18 04:00] VITALS: BP 111/71; PULSE 77; RESP 20; TEMP 99.3; O2SAT 96
[2016-11-18 06:19] LABS: AUTOMATED NEUTROPHIL # 10.3 TH/MM3 (1.8-7.7); BASOPHIL # 0.1 TH/MM3 (0-0.2); BASOPHIL % 0.4 % (0.0-2.0); EOSINOPHIL # 0.8 TH/MM3 (0-0.4); EOSINOPHIL % 5.8 % (0.0-4.0); HEMATOCRIT 29.6 % (39.0-51.0); HEMO FLAGS DIFF FINAL; LYMPH % 10.8 % (9.0-44.0); LYMPHOCYTE # 1.5 TH/MM3 (1.0-4.8); MEAN CELL VOLUME 79.8 FL (80.0-100.0); MEAN CORPUSCULAR HEMOGLOBIN 25.6 PG (27.0-34.0); MEAN CORPUSCULAR HGB CONC 32.2 % (32.0-36.0); MONO % 6.1 % (0.0-8.0); NEUT % 76.9 % (16.0-70.0); PLATELET COUNT 158 TH/MM3 (150-450); RED BLOOD COUNT 3.71 MIL/MM3 (4.50-5.90); WHITE BLOOD COUNT 13.5 TH/MM3 (4.0-11.0)
[2016-11-18 06:24] LABS: POTASSIUM 3.7 MEQ/L (3.5-5.1)
[2016-11-18 06:29] LABS: BICARBONATE 23.5 MEQ/L (21.0-32.0)
[2016-11-18 08:00] VITALS: BP 147/82; PULSE 77; RESP 18; TEMP 97.6; O2SAT 100
[2016-11-18] MEDS: predniSONE 10 MG TAB PO SCH (08:13)
[2016-11-18] MEDS: cefTRIAXone INJ 2,000 MG in SODIUM CHLORIDE 0.9% INJ 100 ML IV SCH (08:14)
[2016-11-18] MEDS: ACETAMINOPHEN/HYDROcodone 325 MG/10 MG TAB PO PRN (08:23)
[2016-11-18] MEDS: ATENOLOL 50 MG TAB PO SCH (09:00)
--- NOTE | 2016-11-18 09:56 | ECHRPT ---
Indication: CONCLUSIONS Normal left ventricular size. Wall thickness is normal. The left ventricular systolic function is normal with an estimated ejection fraction of 65%. No regional wall motion abnormalities are present. Doppler parameters are consistent with impaired left ventricular relaxtion (grade 1 diastolic dysfun ction). The left atrial size is [id number] dilated. The right atrial size is upper limits of normal. Djpvz-bu-fvxy mitral valve regurgitation. Moderate mitral annular calcification. Aortic valve sclerosis is present. Trace aortic valve regurgitation. Mild aortic valve stenosis. Aortic valve mean gradient is 16 mmHg. There is trace tricuspid valve regurgitation. BP: 134 / 82 HR: Rhythm: Sinus MEASUREMENTS (Male / Female) Normal Values Technical Quality:Fair 2D ECHO LV Diastolic Diameter PLAX 3.5 cm 4.2 - 5.9 / 3.9 - 5.3 cm LV Systolic Diameter PLAX 2.4 cm IVS Diastolic Thickness 0.9 cm 0.6 - 1.0 / 0.6 - 0.9 cm LVPW Diastolic Thickness 0.9 cm 0.6 - 1.0 / 0.6 - 0.9 cm LV Relative Wall Thickness 0.5 LVOT Diameter 2.2 cm Aortic Root Diameter 2.9 cm LA Systolic Diameter LX 3.0 cm 3.0 - 4.0 / 2.7 - 3.8 cm DOPPLER AV Peak Velocity 284.0 cm/s AV Peak Gradient 32.3 mmHg AV Mean Gradient 16.0 mmHg AV Velocity Time Integral 49.1 cm LVOT Peak Velocity 79.9 cm/s LVOT Peak Gradient 2.6 mmHg LVOT Velocity Time Integral 14.7 cm AV Area Cont Eq vti 1.1 cm AV Area Cont Eq pk 1.1 cm Mitral E Point Velocity 93.8 cm/s Mitral A Point Velocity 162.0 cm/s Mitral E to A Ratio 0.6 LV E' Lateral Velocity 5.2 cm/s Mitral E to LV E' Lateral Ratio 18.1 LV E' Septal Velocity 8.0 cm/s Mitral E to LV E' Septal Ratio 11.7 TR Peak Velocity 202.0 cm/s TR Peak Gradient 16.3 mmHg PV Peak Velocity 87.2 cm/s PV Peak Gradient 3.0 mmHg FINDINGS LEFT VENTRICLE Normal left ventricular size. Wall thickness is normal. The left ventricular systolic function is hyperdynamic with an estimated ejection fraction of 65%. No regional wall motion abnormalities are present. Doppler parameters are consistent with impaired left ventricular relaxtion (grade 1 diastolic dysfun ction). RIGHT VENTRICLE Normal right ventricular size and systolic function. LEFT ATRIUM The left atrial size is [id number] dilated. RIGHT ATRIUM The right atrial size is upper limits of normal. ATRIAL SEPTUM The interatrial septum not well visualized. MITRAL VALVE Structurally normal mitral valve. Bqgrj-da-qdnj mitral valve regurgitation. Moderate mitral annular calcification. AORTIC VALVE Aortic valve sclerosis is present. Trace aortic valve regurgitation. Mild aortic valve stenosis. Aortic valve area is 1.1 cm. Aortic valve mean gradient is 16 mmHg. TRICUSPID VALVE The tricuspid valve is not well visualized. There is trace tricuspid valve regurgitation. Normal estimated pulmonary pressures. PULMONARY VALVE The pulmonary valve is not well visualized. VESSELS The inferior vena cava is normal in size. There is greater than 50% respiratory change in dimension of the inferior vena cava (normal). PERICARDIUM Possible trace pericardial effusion Diego Whiteside MD, FACC (Electronically Signed) Final Date:18 November 2016 09:55
--- NOTE | 2016-11-18 11:55 | HHI.PR ---
Subjective Remarks Patient seen and evaluated in follow-up for sepsis now known to have streptococcal bacteremia. Complaining of lumbar pain today. Mental status is greatly improved. MAXIMUM TEMPERATURE 100.1 Objective Vitals Vital Signs Date Time Temp Pulse Resp B/P Pulse Ox O2 Delivery O2 Flow Rate FiO2 11/18/16 10:32 20 11/18/16 09:23 20 11/18/16 08:00 97.6 77 18 147/82 100 11/18/16 04:00 99.3 77 20 111/71 96 11/18/16 00:00 100.1 79 20 141/95 95 11/17/16 20:00 98.4 81 20 120/76 96 11/17/16 16:00 98.8 77 19 136/74 97 11/17/16 12:00 98.6 74 18 101/72 98 I/O 11/17/16 11/17/16 11/17/16 11/18/16 11/18/16 11/18/16 07:00 15:00 23:00 07:00 15:00 23:00 Intake Total 420 ml 480 ml 480 ml 1000 ml Output Total 200 ml Balance 420 ml 480 ml 280 ml 1000 ml Intake Oral 420 ml 480 ml 480 ml 600 ml IV Total 400 ml Output Urine Total 200 ml # Voids 2 2 1 3 # Bowel Movements 0 1 1 Result Diagram: 11/18/1651411/18/1615 Objective Remarks GENERAL: This is a well-nourished, well-developed patient, alert without distress pleasant and back to baseline per family CARDIOVASCULAR: Regular rate and rhythm without murmurs, gallops, or rubs. RESPIRATORY: Clear to auscultation. Breath sounds equal bilaterally. No wheezes , rales, or rhonchi. GASTROINTESTINAL: Abdomen soft, non-tender, nondistended. Normal active bowel sounds MUSCULOSKELETAL: Tender in the lumbar region on exam, Extremities without clubbing, cyanosis, or edema. NEURO: Alert & Oriented x4 to person, place, time, situation. Moves all ext x4 A/P Problem List: (1) Sepsis ICD Code: A41.9 Status: Acute Plan: Sepsis due to streptococcal bacteremia, MRI lumbar spine pending rule out abscess Continue empiric iv vancomycin and rocephin ID consult appreciated ct head unremarkable Echocardiogram does show some diastolic dysfunction without evidence of vegetation (2) Hypertension ICD Code: I10 Status: Acute Plan: Home meds to continue hydralazine Roxana You MD Nov 18, 2016 11:55
[2016-11-18 12:00] VITALS: BP 135/89; PULSE 83; RESP 17; TEMP 97.9; O2SAT 99
[2016-11-18 16:00] VITALS: BP 163/93; PULSE 73; RESP 17; TEMP 97.8; O2SAT 96
[2016-11-18] MEDS ORDERED: GADOBENATE DIM PF 529 MG/ML 5 ML VIAL (for RAD MRI) IV ONE (17:22)
[2016-11-18 20:00] VITALS: BP 123/55; PULSE 73; RESP 18; TEMP 99.6; O2SAT 97
[2016-11-19] VITALS (7 sets, daily range): BP systolic 123–167; BP diastolic 72–97; PULSE 59–81; RESP 16–20; TEMP 97–100.6; O2SAT 95–99
[2016-11-19] MEDS: ACETAMINOPHEN 325 MG TAB PO PRN (00:48)
[2016-11-19] MEDS: predniSONE 10 MG TAB PO SCH (08:41)
[2016-11-19] MEDS: ATENOLOL 50 MG TAB PO SCH (08:41)
[2016-11-19] MEDS ORDERED: RESP: ALBUTEROL 2.5 MG/IPRATROPIUM 0.5 MG NEB (PRN) NEB (09:30)
--- NOTE | 2016-11-19 09:45 | HHI.PR ---
Subjective Remarks Follow-up sepsis/bacteremia 11/19/16-patient seen and examined, Tmax 100.6 at midnight however currently afebrile and denies any shortness of breath. Alert and oriented 3. Occasional back spasm. Lumbar spine MRI pending Objective Vitals Vital Signs Date Time Temp Pulse Resp B/P Pulse Ox O2 Delivery O2 Flow Rate FiO2 11/19/16 08:00 99.2 66 16 167/87 95 11/19/16 04:00 97.0 68 18 165/93 96 11/19/16 00:00 100.6 81 20 149/97 97 11/18/16 20:00 99.6 73 18 123/55 97 11/18/16 16:00 97.8 73 17 163/93 96 11/18/16 12:00 97.9 83 17 135/89 99 11/18/16 10:32 20 I/O 11/18/16 11/18/16 11/18/16 11/19/16 11/19/16 11/19/16 07:00 15:00 23:00 07:00 15:00 23:00 Intake Total 1000 ml 240 ml Output Total 500 ml 200 ml 300 ml Balance 1000 ml -500 ml 40 ml -300 ml Intake Oral 600 ml 240 ml IV Total 400 ml Output Urine Total 500 ml 200 ml 300 ml # Voids 3 2 # Bowel Movements 1 0 Result Diagram: 11/18/16 0515 11/18/16 0515 Imaging Last Impressions Head CT 11/17/16 0000 Signed Impressions: Service Date/Time: Thursday, November 17, 2016 14:40 - CONCLUSION: Negative CT scan of the head. Josh Borjas MD FACR Abdomen CT 11/17/16 0000 Signed Impressions: Service Date/Time: Thursday, November 17, 2016 23:56 - CONCLUSION: 1. 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 2. Small left kidney. 3. Degenerative changes of the spine are noted and remote compression fractures of L2 and L3 identified. 4. Small pleural effusions bilaterally and left lower lobe atelectasis/consolidation. Refugio Birmingham MD Chest X-Ray 11/16/16 1643 Signed Impressions: Service Date/Time: Wednesday, November 16, 2016 16:51 - CONCLUSION: No acute disease. José Manuel Hernández MD Objective Remarks GENERAL: NAD SKIN: Warm and dry. HEAD: Normocephalic. EYES: No scleral icterus. No injection or drainage. NECK: Supple, trachea midline. No JVD or lymphadenopathy. CARDIOVASCULAR: Regular rate and rhythm without murmurs, gallops, or rubs. RESPIRATORY: Breath sounds equal bilaterally. No accessory muscle use. GASTROINTESTINAL: Abdomen soft, non-tender, nondistended. MUSCULOSKELETAL: No cyanosis, or edema. BACK: Nontender without obvious deformity. No CVA tenderness. A/P Problem List: (1) Sepsis ICD Code: A41.9 Status: Acute (2) Hypertension ICD Code: I10 Status: Acute Assessment and Plan 81-year-old man with Gram positive bacteremia Repeat blood culture Continue with IV antibiotics including Rocephin and vancomycin Appreciate input from infectious disease specialist Sepsis Unknown source 2-D echo without any evidence of vegetation May consider NATHAN Lumbar spine MRI pending to rule out possible abscess versus osteomyelitis Metabolic encephalopathy Resolved Head CT was negative and admission Leukocytosis Steroid use versus infectious process WBC trending down, continue to monitor Acute on chronic kidney disease stage III Renal indices improving Continue to monitor and avoid all nephrotoxic drugs Hypochromic normocytic anemia of chronic disease H&H currently stable, continue to monitor Hypertension Labile BP this a.m. Currently on atenolol 50 mg daily and Cardura 4 mg at bedtime Hydralazine when necessary DVT prophylaxis: Bilateral SCDs Burke See MD Nov 19, 2016 09:45
[2016-11-19] MEDS: cefTRIAXone INJ 2,000 MG in SODIUM CHLORIDE 0.9% INJ 100 ML IV SCH (11:26)
[2016-11-19] MEDS: VANCOMYCIN 1,000 MG/NS 250 ML IV SCH ×2 (12:56)
--- NOTE | 2016-11-19 13:56 | RADRPT ---
EXAM DATE/TIME: 11/18/2016 17:12 [facility] COMPARISON: No previous studies available for comparison. Exam is severely limited by motion artifact. INDICATIONS : Abscess. CONTRAST: 12 cc Multihance (gadobenate) IV MEDICAL HISTORY : Hypertension. Gastroesophageal reflux disease. Renal calculi. SURGICAL HISTORY : Abdominal aortic aneurysm repair. ENCOUNTER: Subsequent ACUITY: 4-6 days PAIN SCORE: 5/10 LOCATION: Lower back. TECHNIQUE: Multiplanar multisequence MRI of the lumbar spine was performed with and without contrast. FINDINGS: The most caudal appearing lumbar vertebra is numbered as L5. VERTEBRAE: Homogeneous signal. Normal alignment. CONUS: Normal level and configuration. POST CONTRAST: No abnormal areas of contrast enhancement are seen. T12-L1: The thecal sac has a normal diameter. No evidence of disc bulge or protrusion. The neural foramina are patent bilaterally. L1-L2: Mild disc bulging is present with minimal spinal stenosis. Mild degenerative changes are present fac ets. L2-L3: Ridging is present with minimal spinal stenosis. There is no abnormal contrast enhancement. L3-L4: Severe spinal stenosis with near complete obliteration of the thecal space with bilateral neural fora lindsay encroachment. L4-L5: Extensive facet disease with bilateral from encroachment and moderate spinal stenosis. L5-S1: Extensive facet disease with mild bilateral neural foramina encroachment. Spinal stenosis is minimal . Degenerative changes are present at both SI joints. Retroperitoneum is unremarkable Normal aneurysm measures 3.5 cm. There is no abnormal contrast enhancement to suggest an epidural abscess or if so as abscess however significant motion artifact would obscure fine detail. CONCLUSION: Extensive degenerative changes and spinal stenosis. Spinal stenosis worse at L3-L4. There is no abnormal contrast enhancement. Josh Borjas MD FACR on November 18, 2016 at 17:54 Board Certified Radiologist. This report was verified electronically.
[2016-11-19] MEDS: ACETAMINOPHEN/HYDROcodone 325 MG/10 MG TAB PO PRN (17:33)
--- NOTE | 2016-11-19 20:06 | HHI.IDPN ---
Subjective Subjective Remarks ID Xcover for Dr Fernando pt is 81 yo with viridans step bacteremia pt co non productive cough, SOB and orthopnea having low grade fever 2 D echo w/o vegetaion Antibiotics vanco CFTX Allergies: Coded Allergies: No Known Allergies (Unverified , 11/16/16) Objective . Vital Signs Date Time Temp Pulse Resp B/P Pulse Ox O2 Delivery O2 Flow Rate FiO2 11/19/16 18:21 99.1 95 11/19/16 16:00 99.1 65 17 145/72 96 11/19/16 12:00 100.2 70 17 144/74 99 11/19/16 08:00 99.2 66 16 167/87 95 11/19/16 04:00 97.0 68 18 165/93 96 11/19/16 00:00 100.6 81 20 149/97 97 11/18/16 11/18/16 11/19/16 15:00 23:00 07:00 Intake Total 240 ml Output Total 500 ml 200 ml 300 ml Balance -500 ml 40 ml -300 ml Intake Oral 240 ml Output Urine Total 500 ml 200 ml 300 ml # Voids 2 # Bowel Movements 0 . Laboratory Tests Test 11/18/16 05:15 White Blood Count 13.5 TH/MM3 Red Blood Count 3.71 MIL/MM3 Hemoglobin 9.5 GM/DL Hematocrit 29.6 % Mean Corpuscular Volume 79.8 FL Mean Corpuscular Hemoglobin 25.6 PG Mean Corpuscular Hemoglobin 32.2 % Concent Red Cell Distribution Width 15.0 % Platelet Count 158 TH/MM3 Mean Platelet Volume 10.4 FL Neutrophils (%) (Auto) 76.9 % Lymphocytes (%) (Auto) 10.8 % Monocytes (%) (Auto) 6.1 % Eosinophils (%) (Auto) 5.8 % Basophils (%) (Auto) 0.4 % Neutrophils # (Auto) 10.3 TH/MM3 Lymphocytes # (Auto) 1.5 TH/MM3 Monocytes # (Auto) 0.8 TH/MM3 Eosinophils # (Auto) 0.8 TH/MM3 Basophils # (Auto) 0.1 TH/MM3 CBC Comment DIFF FINAL Differential Comment Laboratory Tests Test 11/18/16 05:15 Sodium Level 142 MEQ/L Potassium Level 3.7 MEQ/L Chloride Level 110 MEQ/L Carbon Dioxide Level 23.5 MEQ/L Anion Gap 9 MEQ/L Blood Urea Nitrogen 23 MG/DL Creatinine 2.00 MG/DL Estimat Glomerular Filtration 32 ML/MIN Rate Random Glucose 92 MG/DL Calcium Level 8.3 MG/DL Microbiology Date/Time Procedure Status Source Growth 11/19/16 09:30 Aerobic Blood Culture Received Blood Peripheral Pending 11/19/16 09:30 Anaerobic Blood Culture Received Blood Peripheral Pending 11/19/16 09:45 Aerobic Blood Culture Received Blood Peripheral Pending 11/19/16 09:45 Anaerobic Blood Culture Received Blood Peripheral Pending Imaging Last Impressions Head CT 11/17/16 0000 Signed Impressions: Service Date/Time: Thursday, November 17, 2016 14:40 - CONCLUSION: Negative CT scan of the head. Josh Borjas MD FACR Abdomen CT 11/17/16 0000 Signed Impressions: Service Date/Time: Thursday, November 17, 2016 23:56 - CONCLUSION: 1. 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 2. Small left kidney. 3. Degenerative changes of the spine are noted and remote compression fractures of L2 and L3 identified. 4. Small pleural effusions bilaterally and left lower lobe atelectasis/consolidation. Refugio Birmingham MD Chest X-Ray 11/16/16 1643 Signed Impressions: Service Date/Time: Wednesday, November 16, 2016 16:51 - CONCLUSION: No acute disease. José Manuel Hernández MD Physical Exam CONSTITUTIONAL/GENERAL: This is an adequately nourished patient, in no apparent distress. Sitting up in bed TUBES/LINES/DRAINS: SKIN: No jaundice, rashes, or lesions. . Skin temperature appropriate. Not diaphoretic. No Janeway leisons, no splinter hemorrages HEAD: Atraumatic. Normocephalic. EYES: Pupils equal and round and reactive. Extraocular motions intact. No scleral icterus. No injection or drainage. Fundi not examined. ENT: Hearing grossly normal. Nose without bleeding or purulent drainage. Oral mucosae without visible erythema, exudates, masses, or lesions. NECK: Trachea midline. Supple, nontender. CARDIOVASCULAR: Regular rate and rhythm without murmurs, gallops, or rubs. No JVD. Peripheral pulses symmetric. RESPIRATORY/CHEST: Symmetric, unlabored respirations.+ rhonchi to auscultation. Breath sounds equal bilaterally. GASTROINTESTINAL: Abdomen soft, non-tender, nondistended. No hepato-splenomegaly , or palpable masses. No guarding. Bowel sounds present. GENITOURINARY: Without palpable bladder distension. MUSCULOSKELETAL: Extremities without clubbing, cyanosis, or edema. No mottling or clubbing. LYMPHATICS: No palpable cervical or supraclavicular adenopathy. NEUROLOGICAL: Awake and alert. Motor and sensory grossly within normal limits. Follows commands. Clear speech. Moves all extremities. PSYCHIATRIC: No obvious anxiety/depression. no apparent hallucinations or other psychotic thought process. Assessment & Plan Remarks Hifgh grade viridans sterp bacteremia, source is unclear, community acquired - CT A/P negative Orthopnea LLL PNA persistent fever cont CFTX, vanco add levaquine CT chest consult electrophysiology tech for NATHAN fu repeat bloof clx dw dgtr @ b/s Flakita Berger MD Nov 19, 2016 20:06
[2016-11-19] MEDS: DOXAZOSIN MESYLATE 4 MG TAB PO SCH (21:23)
[2016-11-19] MEDS: LEVOFLOXACIN 750 MG PREMIX INJ 150 ML IV SCH (21:23)
[2016-11-19] MEDS: LACTOBACILLUS ACIDOPHILUS TAB PO SCH (21:23)
--- NOTE | 2016-11-19 21:30 | RADRPT ---
EXAM DATE/TIME: 11/19/2016 20:34 [facility] COMPARISON: CTA THORACIC ABDOMINAL AORTA W 3D RECON, September 20, 2016, 20:21. INDICATIONS : Sepsis, pneumonia RADIATION DOSE: 8.97 CTDIvol (mGy) MEDICAL HISTORY : Hypertension. Deep venous thrombosis. SURGICAL HISTORY : Abdominal aortic aneurysm repair. ENCOUNTER: Initial ACUITY: 2 weeks PAIN SCALE: 5/10 LOCATION: chest TECHNIQUE: Volumetric scanning of the chest was performed. Using automated exposure control and adjustment of t he mA and/or kV according to patient size, radiation dose was kept as low as reasonably achievable to obtain optimal diagnostic quality images. DICOM format image data is available electronically for r eview and comparison. Follow-up recommendations for detected pulmonary nodules are based at a minimum on nodule size and pa tient risk factors according to Fleischner Society Guidelines. FINDINGS: There is some linear atelectasis or scarring in both lungs and a nodular density in the left upper lo be, stable there is some peripheral consolidation at the left lung base laterally and posteriorly. Tr holly pleural fluid. No hilar, mediastinal axillary adenopathy. Moderate coronary calcifications. Mitral annular calcifica tions. Remote granulomatous disease noted with calcified mediastinal and hilar lymph nodes. No acute findings in the liver, spleen, adrenals or pancreas. Previous cholecystectomy.. CONCLUSION: 1. There is a thin rim of peripheral airspace disease in left lobe laterally and posteriorly which is a new finding since September. Trace pleural fluid. The apical scarring and nodular opacity on the left s table. 2. No adenopathy or pericardial effusion. Remote granulomatous disease. Moderate coronary calcificati ons. 3. Stable ectatic and tortuous thoracic aorta compared with Gemini CT. Roosevelt Beauchamp MD on November 19, 2016 at 21:22 Board Certified Radiologist. This report was verified electronically.
[2016-11-20] VITALS (14 sets, daily range): BP systolic 120–160; BP diastolic 71–89; PULSE 61–73; RESP 16–20; TEMP 97.7–98.4; O2SAT 94–100
[2016-11-20 07:44] LABS: AUTOMATED NEUTROPHIL # 5.6 TH/MM3 (1.8-7.7); BASOPHIL % 0.3 % (0.0-2.0); EOSINOPHIL # 0.5 TH/MM3 (0-0.4); EOSINOPHIL % 5.9 % (0.0-4.0); HEMO FLAGS DIFF FINAL; LYMPH % 17.1 % (9.0-44.0); LYMPHOCYTE # 1.3 TH/MM3 (1.0-4.8); MEAN CELL VOLUME 80.6 FL (80.0-100.0); MEAN CORPUSCULAR HEMOGLOBIN 25.5 PG (27.0-34.0); MEAN CORPUSCULAR HGB CONC 31.6 % (32.0-36.0); MONO % 6.4 % (0.0-8.0); NEUT % 70.3 % (16.0-70.0); PLATELET COUNT 186 TH/MM3 (150-450); RED BLOOD COUNT 3.73 MIL/MM3 (4.50-5.90); RED CELL DISTRIBUTION WIDTH 14.6 % (11.6-17.2); WHITE BLOOD COUNT 7.9 TH/MM3 (4.0-11.0)
[2016-11-20 07:46] LABS: POTASSIUM 3.7 MEQ/L (3.5-5.1)
[2016-11-20 07:49] LABS: BICARBONATE 24.2 MEQ/L (21.0-32.0)
[2016-11-20] MEDS: predniSONE 10 MG TAB PO SCH (08:54)
[2016-11-20] MEDS: LACTOBACILLUS ACIDOPHILUS TAB PO SCH ×2 (08:54→21:14)
[2016-11-20] MEDS: ATENOLOL 50 MG TAB PO SCH (08:54)
--- NOTE | 2016-11-20 09:58 | HHI.PR ---
Subjective Remarks Follow-up sepsis/bacteremia 11/19/16-patient seen and examined, Tmax 100.6 at midnight however currently afebrile and denies any shortness of breath. Alert and oriented 3. Occasional back spasm. Lumbar spine MRI pending 11/20/16-patient seen and examined, currently afebrile. Reports significant improvements of symptoms. Objective Vitals Vital Signs Date Time Temp Pulse Resp B/P Pulse Ox O2 Delivery O2 Flow Rate FiO2 11/20/16 09:13 97.7 11/20/16 08:56 65 11/20/16 08:55 18 139/89 11/20/16 00:00 98.1 68 20 120/71 97 11/19/16 20:00 98.3 59 18 123/84 97 11/19/16 18:21 99.1 95 11/19/16 16:00 99.1 65 17 145/72 96 11/19/16 12:00 100.2 70 17 144/74 99 I/O 11/19/16 11/19/16 11/19/16 11/20/16 11/20/16 11/20/16 06:59 14:59 22:59 06:59 14:59 22:59 Intake Total 701 ml 120 ml 240 ml Output Total 300 ml 500 ml Balance -300 ml -500 ml 701 ml 120 ml 240 ml Intake Oral 240 ml 120 ml 240 ml IV Total 461 ml Output Urine Total 300 ml 500 ml # Voids 2 2 # Bowel Movements 0 0 Result Diagram: 11/20/16 0643 11/20/16 0643 Imaging Last Impressions Chest CT 11/19/16 0000 Signed Impressions: Service Date/Time: Saturday, November 19, 2016 20:34 - CONCLUSION: 1. There is a thin rim of peripheral airspace disease in left lobe laterally and posteriorly which is a new finding since September. Trace pleural fluid. The apical scarring and nodular opacity on the left stable. 2. No adenopathy or pericardial effusion. Remote granulomatous disease. Moderate coronary calcifications. 3. Stable ectatic and tortuous thoracic aorta compared with September CT. Roosevelt Beauchamp MD Head CT 11/17/16 0000 Signed Impressions: Service Date/Time: Thursday, November 17, 2016 14:40 - CONCLUSION: Negative CT scan of the head. Josh Borjas MD FACR Abdomen CT 11/17/16 0000 Signed Impressions: Service Date/Time: Thursday, November 17, 2016 23:56 - CONCLUSION: 1. 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 2. Small left kidney. 3. Degenerative changes of the spine are noted and remote compression fractures of L2 and L3 identified. 4. Small pleural effusions bilaterally and left lower lobe atelectasis/consolidation. Refugio Birmingham MD Chest X-Ray 11/16/16 1643 Signed Impressions: Service Date/Time: Wednesday, November 16, 2016 16:51 - CONCLUSION: No acute disease. José Manuel Hernández MD Objective Remarks GENERAL: NAD SKIN: Warm and dry. HEAD: Normocephalic. EYES: No scleral icterus. No injection or drainage. NECK: Supple, trachea midline. No JVD or lymphadenopathy. CARDIOVASCULAR: Regular rate and rhythm without murmurs, gallops, or rubs. RESPIRATORY: Breath sounds equal bilaterally. No accessory muscle use. GASTROINTESTINAL: Abdomen soft, non-tender, nondistended. MUSCULOSKELETAL: No cyanosis, or edema. BACK: Nontender without obvious deformity. No CVA tenderness. A/P Problem List: (1) Sepsis ICD Code: A41.9 Status: Acute (2) Hypertension ICD Code: I10 Status: Acute Assessment and Plan 81-year-old man with Gram positive bacteremia-High grade viridans strep Repeat blood culture pending Continue with IV antibiotics including Rocephin, Levaquin and vancomycin Appreciate input from infectious disease specialist Sepsis 2-D echo without any evidence of vegetation Consult Cardiology for NATHAN Left lower lobe pneumonia CT chest noted and review with finding of a thin rim of peripheral airspace disease in left lobe laterally Continue current antibiotics Metabolic encephalopathy Resolved Head CT was negative and admission Leukocytosis-resolved Steroid use versus infectious process Acute on chronic kidney disease stage III Renal indices improving Continue to monitor and avoid all nephrotoxic drugs Hypochromic normocytic anemia of chronic disease H&H currently stable, continue to monitor Hypertension Currently on atenolol 50 mg daily and Cardura 4 mg at bedtime Hydralazine when necessary DVT prophylaxis: Bilateral SCDs Burke See MD Nov 20, 2016 09:58
[2016-11-20] MEDS ORDERED: DOCUSATE SODIUM 50 MG/SENNA 8.6 MG TAB PO PRN (10:00)
[2016-11-20] MEDS: cefTRIAXone INJ 2,000 MG in SODIUM CHLORIDE 0.9% INJ 100 ML IV SCH (11:14)
[2016-11-20] MEDS: DOXAZOSIN MESYLATE 4 MG TAB PO SCH (21:00)
[2016-11-20] MEDS ORDERED: PHARMACY ORDERED LAB ONE (23:45)
[2016-11-20] MEDS: hydrALAZINE HCL 20 MG/ML VIAL IV PUSH PRN (23:46)
[2016-11-21] VITALS (28 sets, daily range): BP systolic 108–137; BP diastolic 63–85; PULSE 60–86; RESP 16; TEMP 98.4–101.9; O2SAT 96–99
[2016-11-21] MEDS: ACETAMINOPHEN 325 MG TAB PO PRN ×2 (03:37→15:28)
[2016-11-21] MEDS: predniSONE 10 MG TAB PO SCH (08:48)
[2016-11-21] MEDS: LACTOBACILLUS ACIDOPHILUS TAB PO SCH ×2 (08:48→20:24)
[2016-11-21] MEDS: ATENOLOL 50 MG TAB PO SCH (08:48)
--- NOTE | 2016-11-21 10:17 | HHI.PR ---
Subjective Remarks Follow-up bacteremia, pneumonia. The patient denies chest pain, but does continue to report shortness of breath. Denies nausea or vomiting. Objective Vitals Vital Signs Date Time Temp Pulse Resp B/P Pulse Ox O2 Delivery O2 Flow Rate FiO2 11/21/16 06:03 62 11/21/16 05:00 63 11/21/16 04:14 68 11/21/16 03:40 99.4 69 16 125/77 97 11/21/16 03:31 68 11/21/16 02:00 68 11/21/16 01:00 68 11/21/16 00:28 70 11/20/16 23:54 21 11/20/16 23:48 98.4 65 16 160/79 100 11/20/16 23:00 68 11/20/16 22:21 68 11/20/16 21:00 68 11/20/16 20:30 98.2 66 16 151/81 99 11/20/16 20:30 71 11/20/16 20:00 98.1 70 16 144/84 96 11/20/16 16:00 97.9 67 20 147/86 95 11/20/16 15:11 73 11/20/16 14:20 64 11/20/16 12:31 97.7 61 20 135/81 94 I/O 11/20/16 11/20/16 11/20/16 11/21/16 11/21/16 11/21/16 07:00 15:00 23:00 07:00 15:00 23:00 Intake Total 120 ml 240 ml 320 ml 480 ml Output Total 300 ml 1075 ml Balance 120 ml 240 ml 20 ml -595 ml Intake Oral 120 ml 240 ml 320 ml 480 ml IV Total 0 ml Output Urine Total 300 ml 1075 ml # Voids 2 1 # Bowel Movements 0 Result Diagram: 11/20/16 0643 11/21/16 0621 Imaging Last Impressions Chest CT 11/19/16 0000 Signed Impressions: Service Date/Time: Saturday, November 19, 2016 20:34 - CONCLUSION: 1. There is a thin rim of peripheral airspace disease in left lobe laterally and posteriorly which is a new finding since September. Trace pleural fluid. The apical scarring and nodular opacity on the left stable. 2. No adenopathy or pericardial effusion. Remote granulomatous disease. Moderate coronary calcifications. 3. Stable ectatic and tortuous thoracic aorta compared with Gemini CT. Roosevelt Beauchamp MD Head CT 11/17/16 0000 Signed Impressions: Service Date/Time: Thursday, November 17, 2016 14:40 - CONCLUSION: Negative CT scan of the head. Josh Borjas MD FACR Abdomen CT 11/17/16 0000 Signed Impressions: Service Date/Time: Thursday, November 17, 2016 23:56 - CONCLUSION: 1. 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 2. Small left kidney. 3. Degenerative changes of the spine are noted and remote compression fractures of L2 and L3 identified. 4. Small pleural effusions bilaterally and left lower lobe atelectasis/consolidation. Refugio Birmingham MD Chest X-Ray 11/16/16 1643 Signed Impressions: Service Date/Time: Wednesday, November 16, 2016 16:51 - CONCLUSION: No acute disease. José Manuel Hernández MD Objective Remarks General: No acute distress. Heart: Regular rate and rhythm. No murmur. Lungs: Mild crackles on the left. Breathing is nonlabored. Abdomen: Soft, nontender, nondistended. Extremities: No lower extremity edema. Psych: Alert and oriented. Procedures None Urinary Catheter: No Vascular Central Line Catheter: No A/P Problem List: (1) Sepsis ICD Code: A41.9 Status: Acute (2) Hypertension ICD Code: I10 Status: Chronic (3) Bacteremia due to Streptococcus ICD Code: R78.81 Status: Acute (4) Metabolic encephalopathy ICD Code: G93.41 Status: Acute Assessment and Plan 1. High-grade viridans strep bacteremia: Repeat blood cultures are negative so far. Continue IV Rocephin, Levaquin, vancomycin. Appreciate infectious disease recommendations. Scheduled for NATHAN tomorrow. 2. Left lower lobe pneumonia: Continue antibiotics. 3. Sepsis: Secondary to pneumonia, bacteremia. 4. Acute on chronic kidney disease stage III: Improving. 5. Anemia of chronic disease, hypochromic normocytic: Stable H&H. 6. Hypertension: Continue atenolol, Cardura. Hydralazine as needed. 7. DVT prophylaxis: SCDs. Discussed with Dr. Knapp, cardiology, at bedside. Plan for NATHAN tomorrow. Hugh Ayala MD Nov 21, 2016 10:17
--- NOTE | 2016-11-21 11:20 | MB ---
cc: HARJINDER ANTONY MD DATE OF CONSULTATION: 11/21/2016 REASON FOR CONSULTATION: Evaluation for NATHAN. HISTORY OF PRESENT ILLNESS Mr. De Leon is a pleasant 81-year-old man who does have a history of hypertension. He recently has moved to the from [place] about a month ago. He reports he had several days of fever or chills at home that precipitated his emergency room visit. ID workup has revealed that the patient has high-grade Viridans strep bacteremia with an unclear source. Cardiology was subsequently consulted to evaluate for NATHAN. Of note the patient does report that he is having difficulty with one of his teeth. ALLERGIES: NO KNOWN DRUG ALLERGIES. CURRENT MEDICATIONS: Per the record. PAST MEDICAL HISTORY: The past medical history is significant for hypertension, DVT, abdominal aortic aneurysm repair. SOCIAL HISTORY The patient is and does not drink. He does smoke. FAMILY HISTORY Noncontributory. REVIEW OF SYSTEMS Except as mentioned in the HPI all 12 systems are negative. PHYSICAL EXAMINATION: On physical examination vital signs 98.6, 69, 16, 137/81. General: He is well-appearing man who is in no apparent distress. Neck: His neck is free from JVD. Lungs: Lungs are bilaterally clear to auscultation. Cardiovascular: He has a normal S1-S2, no rubs or gallops were appreciated. Abdomen: Soft. Extremities: Free from edema. I did not appreciate any splinter hemorrhages. Echocardiogram from 11/17/2016 shows normal LV function. There is no evidence for endocarditis on the surface echo. LABORATORY VALUES: Significant for a creatinine of 1.83. Hemoglobin is 9.5. IMPRESSION Evaluation for NATHAN - the patient does have positive blood culture and fever. The source is possibly from his teeth as he is having some denture difficulties. NATHAN for evaluation for endocarditis is a reasonable request. He will be set up and scheduled with my partner for NATHAN tomorrow. Harjinder Antony M.D. ADAM/SEBASTIAN /10:18 AM /11:10 AM
[2016-11-21] MEDS: cefTRIAXone INJ 2,000 MG in SODIUM CHLORIDE 0.9% INJ 100 ML IV SCH (12:00)
[2016-11-21] MEDS: DOXAZOSIN MESYLATE 4 MG TAB PO SCH (20:24)
[2016-11-21] MEDS: LEVOFLOXACIN 750 MG PREMIX INJ 150 ML IV SCH (20:24)
[2016-11-22] VITALS (25 sets, daily range): BP systolic 113–146; BP diastolic 66–82; PULSE 65–85; RESP 16–18; TEMP 98.5–98.9; O2SAT 95–99
[2016-11-22] MEDS ORDERED: CHLORHEXIDINE GLUCONATE 2 % 1 PACK (2 CLOTHS) TOPICAL PRN (02:15)
[2016-11-22] MEDS ORDERED: INSULIN HUMAN REGULAR 1,000 UNITS/10 ML VIAL SQ PRN (02:15)
[2016-11-22] MEDS ORDERED: LACTATED RINGER'S 1000 ML IV PRN (02:15)
[2016-11-22] MEDS ORDERED: SODIUM CHLORID 0.9% 500 ML IV PRN (02:15)
[2016-11-22] MEDS ORDERED: POVIDONE IODINE 5% (ANTISEPSIS KIT) 4 APPLICATIONS EACH NARE PRN (02:15)
[2016-11-22] MEDS: ATENOLOL 50 MG TAB PO SCH (08:19)
[2016-11-22] MEDS: LACTOBACILLUS ACIDOPHILUS TAB PO SCH ×2 (08:19→20:26)
[2016-11-22] MEDS: predniSONE 10 MG TAB PO SCH (08:20)
[2016-11-22 08:21] LABS: AUTOMATED NEUTROPHIL # 7.7 TH/MM3 (1.8-7.7); BASOPHIL # 0.1 TH/MM3 (0-0.2); BASOPHIL % 0.5 % (0.0-2.0); EOSINOPHIL # 0.5 TH/MM3 (0-0.4); EOSINOPHIL % 5.2 % (0.0-4.0); HEMATOCRIT 30.4 % (39.0-51.0); LYMPH % 14.5 % (9.0-44.0); LYMPHOCYTE # 1.5 TH/MM3 (1.0-4.8); MEAN CELL VOLUME 78.9 FL (80.0-100.0); MEAN CORPUSCULAR HEMOGLOBIN 25.9 PG (27.0-34.0); MEAN CORPUSCULAR HGB CONC 32.9 % (32.0-36.0); MONO % 6.6 % (0.0-8.0); NEUT % 73.2 % (16.0-70.0); PLATELET COUNT 229 TH/MM3 (150-450); RED BLOOD COUNT 3.86 MIL/MM3 (4.50-5.90); RED CELL DISTRIBUTION WIDTH 15.3 % (11.6-17.2); WHITE BLOOD COUNT 10.5 TH/MM3 (4.0-11.0)
--- NOTE | 2016-11-22 08:30 | HHI.PR ---
Subjective Remarks Follow up bacteremia, pneumonia. Patient scheduled for NATHAN at noon. Denies chest pain, dyspnea, nausea, vomiting. Does report diarrhea. Per nursing, patient had one loose stool overnight. Objective Vitals Vital Signs Date Time Temp Pulse Resp B/P Pulse Ox O2 Delivery O2 Flow Rate FiO2 11/22/16 06:00 72 11/22/16 05:00 73 11/22/16 04:00 68 11/22/16 03:20 98.9 75 16 127/76 96 11/22/16 03:00 79 11/22/16 02:00 68 11/22/16 01:00 74 11/22/16 00:00 65 11/21/16 23:40 99.4 74 16 108/63 97 11/21/16 23:00 75 11/21/16 22:00 74 11/21/16 21:00 70 11/21/16 20:00 70 11/21/16 19:50 98.4 69 16 115/76 97 11/21/16 19:00 70 11/21/16 18:00 84 11/21/16 17:47 16 11/21/16 17:22 99.3 11/21/16 17:00 80 11/21/16 16:00 86 11/21/16 15:00 101.9 75 16 134/85 99 11/21/16 15:00 70 11/21/16 14:00 76 11/21/16 13:00 78 11/21/16 12:00 74 11/21/16 11:00 66 11/21/16 11:00 98.8 74 16 133/79 96 11/21/16 10:00 68 11/21/16 09:00 66 I/O 11/21/16 11/21/16 11/21/16 11/22/16 11/22/16 11/22/16 07:00 15:00 23:00 07:00 15:00 23:00 Intake Total 480 ml 580 ml 730 ml Output Total 1075 ml 400 ml 200 ml Balance -595 ml 180 ml 530 ml Intake Oral 480 ml 480 ml 480 ml IV Total 0 ml 100 ml 250 ml Output Urine Total 1075 ml 400 ml 200 ml # Voids 1 # Bowel Movements 1 1 Result Diagram: 11/20/16 0643 11/21/16 0621 Imaging Last Impressions Chest CT 11/19/16 0000 Signed Impressions: Service Date/Time: Saturday, November 19, 2016 20:34 - CONCLUSION: 1. There is a thin rim of peripheral airspace disease in left lobe laterally and posteriorly which is a new finding since September. Trace pleural fluid. The apical scarring and nodular opacity on the left stable. 2. No adenopathy or pericardial effusion. Remote granulomatous disease. Moderate coronary calcifications. 3. Stable ectatic and tortuous thoracic aorta compared with Gemini CT. Roosevelt Beauchamp MD Head CT 11/17/16 0000 Signed Impressions: Service Date/Time: Thursday, November 17, 2016 14:40 - CONCLUSION: Negative CT scan of the head. Josh Borjas MD FACR Abdomen CT 11/17/16 0000 Signed Impressions: Service Date/Time: Thursday, November 17, 2016 23:56 - CONCLUSION: 1. 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 2. Small left kidney. 3. Degenerative changes of the spine are noted and remote compression fractures of L2 and L3 identified. 4. Small pleural effusions bilaterally and left lower lobe atelectasis/consolidation. Refugio Birmingham MD Chest X-Ray 11/16/16 1643 Signed Impressions: Service Date/Time: Wednesday, November 16, 2016 16:51 - CONCLUSION: No acute disease. José Manuel Hernández MD Objective Remarks General: No acute distress. Heart: Regular rate and rhythm. No murmur. Lungs: Mild crackles on the left. Breathing is nonlabored. Abdomen: Soft, nontender, nondistended. Extremities: No lower extremity edema. Psych: Alert and oriented. Procedures None Urinary Catheter: No Vascular Central Line Catheter: No A/P Problem List: (1) Sepsis ICD Code: A41.9 Status: Resolved (2) Hypertension ICD Code: I10 Status: Chronic (3) Bacteremia due to Streptococcus ICD Code: R78.81 Status: Acute (4) Metabolic encephalopathy ICD Code: G93.41 Status: Acute Assessment and Plan 1. High-grade viridans strep bacteremia: Repeat blood cultures are negative so far. Continue IV Rocephin, Levaquin, vancomycin. Appreciate infectious disease recommendations. Scheduled for NATHAN today. 2. Left lower lobe pneumonia: Continue antibiotics. 3. Sepsis: Resolved. Secondary to pneumonia, bacteremia. 4. Acute on chronic kidney disease stage III: Improving. Repeat labs are pending this morning. 5. Anemia of chronic disease, hypochromic normocytic: Stable H&H. Labs are pending. 6. Hypertension: Continue atenolol, Cardura. Hydralazine as needed. 7. DVT prophylaxis: SCDs. Hugh Ayala MD Nov 22, 2016 08:30
[2016-11-22 08:32] LABS: HEMO FLAGS AUTO DIFF
[2016-11-22 08:42] LABS: BICARBONATE 23.9 MEQ/L (21.0-32.0); POTASSIUM 3.6 MEQ/L (3.5-5.1)
[2016-11-22 10:32] LABS: SCAN/DIFF AUTO DIFF CONFIRMED
[2016-11-22] MEDS: cefTRIAXone INJ 2,000 MG in SODIUM CHLORIDE 0.9% INJ 100 ML IV SCH (12:47)
--- NOTE | 2016-11-22 13:58 | ECHRPT ---
Indication: SEPSIS, ENDOCARDITIS CONCLUSIONS Normal LV systolic function EF 60% No wall motion abnormalites No significant valvulopathies No masses, thrombus or vegetation identified BP: / HR: Rhythm: Sinus Technical Quality:Good Medications Complications Proc. Components FINDINGS LEFT VENTRICLE The left ventricular systolic function is normal with an estimated ejection fraction in the range of 55-60%. ATRIAL APPENDAGES Normal left atrial appendage size with no evidence of thrombus formation. MITRAL VALVE Structurally normal mitral valve. No mitral valve stenosis or regurgitation. No visible vegetations. AORTIC VALVE Aortic valve sclerosis is present. No aortic valve regurgitation. No visible vegetations. TRICUSPID VALVE Structurally normal tricuspid valve. No visible vegetations. VESSELS No visible vegetations. Johnnie Ivy MD (Electronically Signed) Final Date:22 November 2016 13:57
[2016-11-22] MEDS: DOXAZOSIN MESYLATE 4 MG TAB PO SCH (20:26)
[2016-11-23 03:59] VITALS: BP 110/56; PULSE 64; RESP 18; TEMP 98.2; O2SAT 94
[2016-11-23 08:00] VITALS: BP 119/70; PULSE 73; RESP 14; TEMP 98.3; O2SAT 99
[2016-11-23] MEDS: ATENOLOL 50 MG TAB PO SCH (08:28)
[2016-11-23] MEDS: LACTOBACILLUS ACIDOPHILUS TAB PO SCH ×2 (08:28→22:07)
[2016-11-23] MEDS: predniSONE 10 MG TAB PO SCH (08:28)
[2016-11-23 12:00] VITALS: BP 126/67; PULSE 65; PULSE 70; RESP 16; TEMP 97.9; O2SAT 98
--- NOTE | 2016-11-23 12:05 | HHI.PR ---
Subjective Remarks Follow-up pneumonia, bacteremia. NATHAN was negative. The patient states that he wants to go home today. He denies chest pain, cough, dyspnea, nausea, vomiting. Objective Vitals Vital Signs Date Time Temp Pulse Resp B/P Pulse Ox O2 Delivery O2 Flow Rate FiO2 11/23/16 08:00 98.3 73 14 119/70 99 11/23/16 03:59 98.2 64 18 110/56 94 11/22/16 22:00 69 11/22/16 20:00 98.7 72 18 121/72 99 11/22/16 20:00 98.5 69 18 146/66 98 11/22/16 18:21 76 11/22/16 17:17 76 11/22/16 16:27 72 11/22/16 15:23 85 11/22/16 15:07 98.7 73 17 113/78 97 11/22/16 14:47 73 11/22/16 13:29 70 11/22/16 12:34 69 I/O 11/22/16 11/22/16 11/22/16 11/23/16 11/23/16 11/23/16 07:00 15:00 23:00 07:00 15:00 23:00 Intake Total 730 ml 367 ml 180 ml Output Total 200 ml 525 ml 350 ml Balance 530 ml -158 ml -170 ml Intake Oral 480 ml 240 ml 180 ml IV Total 250 ml 127 ml Output Urine Total 200 ml 525 ml 350 ml # Voids 1 # Bowel Movements 1 1 0 Result Diagram: 11/22/16 0649 11/23/16 1003 Imaging Last Impressions Chest CT 11/19/16 0000 Signed Impressions: Service Date/Time: Saturday, November 19, 2016 20:34 - CONCLUSION: 1. There is a thin rim of peripheral airspace disease in left lobe laterally and posteriorly which is a new finding since September. Trace pleural fluid. The apical scarring and nodular opacity on the left stable. 2. No adenopathy or pericardial effusion. Remote granulomatous disease. Moderate coronary calcifications. 3. Stable ectatic and tortuous thoracic aorta compared with Gemini CT. Roosevelt Beauchamp MD Head CT 11/17/16 0000 Signed Impressions: Service Date/Time: Thursday, November 17, 2016 14:40 - CONCLUSION: Negative CT scan of the head. Josh Borjas MD FACR Abdomen CT 11/17/16 0000 Signed Impressions: Service Date/Time: Thursday, November 17, 2016 23:56 - CONCLUSION: 1. 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 2. Small left kidney. 3. Degenerative changes of the spine are noted and remote compression fractures of L2 and L3 identified. 4. Small pleural effusions bilaterally and left lower lobe atelectasis/consolidation. Refugio Birmingham MD Chest X-Ray 11/16/16 1643 Signed Impressions: Service Date/Time: Wednesday, November 16, 2016 16:51 - CONCLUSION: No acute disease. José Manuel Hernández MD Objective Remarks General: No acute distress. Heart: Regular rate and rhythm. No murmur. Lungs: Clear to auscultation bilaterally. Breathing is nonlabored. Abdomen: Soft, nontender, nondistended. Extremities: No lower extremity edema. Psych: Alert and oriented. Procedures 11/22/16 NATHAN Urinary Catheter: No Vascular Central Line Catheter: No A/P Problem List: (1) Sepsis ICD Code: A41.9 Status: Resolved (2) Hypertension ICD Code: I10 Status: Chronic (3) Bacteremia due to Streptococcus ICD Code: R78.81 Status: Acute (4) Metabolic encephalopathy ICD Code: G93.41 Status: Acute Assessment and Plan 1. High-grade viridans strep bacteremia: Repeat blood cultures are negative so far. Continue IV Rocephin, Levaquin, vancomycin. Appreciate infectious disease recommendations. NATHAN is negative for endocarditis. 2. Left lower lobe pneumonia: Continue antibiotics. 3. Sepsis: Resolved. Secondary to pneumonia, bacteremia. 4. Acute on chronic kidney disease stage III: Creatinine increased again today. 5. Anemia of chronic disease, hypochromic normocytic: Stable H&H. 6. Hypertension: Continue atenolol, Cardura. Hydralazine as needed. 7. DVT prophylaxis: SCDs. Discharge Planning Plan for discharge home when cleared by infectious disease. May need outpatient IV antibiotics. Hugh Ayala MD Nov 23, 2016 12:05
[2016-11-23] MEDS: cefTRIAXone INJ 2,000 MG in SODIUM CHLORIDE 0.9% INJ 100 ML IV SCH (12:06)
--- NOTE | 2016-11-23 13:36 | HHI.FF ---
Infusion Therapy Location of Infusion Therapy: Home Health Care IV Infusion Order Patient Information Patient Weight 61.5 kg Diagnosis: (1) Sepsis (2) Bacteremia due to Streptococcus Coded Allergies: No Known Allergies (Unverified , 11/16/16) Administer Medication Ceftriaxone 2 grams IV q 24 hours Stop Treatment: Dec 07, 2016 Additional Information Venous access: Other Additional Instructions [x] Peripheral flush and dressing changes per protocol [x] Implanted port and central cylinder block hole reliner: * Implanted port: 10 ml Normal Saline followed by 5 ml Heparin 100 units/ml Heparin flush after each use and monthly to maintain. [] May leave port accessed during therapy. [] May leave peripheral site accessed for duration of therapy. [x] If patient has SOB or respiratory distress, check oxygen saturation. If less than 90% or clinical signs of respiratory distress, administer oxygen at 2 L/min. via nasal cannula and notify physician. [x] Anaphylaxis/Reaction orders: * Stop infusion. * Keep IV line open with saline flush. * Notify physician. * Monitor vital signs every 15 minutes until symptoms resolve. * Check Oxygen saturation; Oxygen at 2 L/min. via nasal cannula if less than 90% or clinical signs of respiratory distress. * Administer diphenhydramine (Benadryl) 25 mg IV STAT, (unless patient has received as pre-med). May repeat once, if necessary. * Solu-Cortef 250 mg IVP over 30-60 seconds, use 100 mg vials for each dissolution. * Epinephrine (1mg/1 ml) 0.3 mg subcutaneously or IVP now with any signs of respiratory distress. * Check with physician for new additional pre-med orders if patient is re- challenged or re-treated. [x] May remove PICC line when treatment complete, after confirming with Physician. [x] If the patient is admitted to the hospital, the ED, or transferred via [facility] , complete transfer form including medication reconciliation order sheet. Laboratory Tests Weekly Labs: Scott Abarca MD Nov 23, 2016 13:35
--- NOTE | 2016-11-23 13:46 | HHI.IDPN ---
Note Infectious Disease Note Patient feels okay. Walking in room. No complaints. Denies chill, sweats, back pain nausea. SOB. Desires to go home. NATHAN - no vegetations. Repeat blood culture negative x 4 days. PAST MEDICAL HISTORY 1. Hypertension. 2. Deep venous thrombosis. 3. Abdominal aortic aneurysm repair with a tube graft for ruptured abdominal aneurysm in March 2015. ALLERGIES NO KNOWN DRUG ALLERGIES. ANTIBIOTICS Ceftriaxone. OBJECTIVE: Vital Signs Date Time Temp Pulse Resp B/P Pulse Ox O2 Delivery O2 Flow Rate FiO2 11/23/16 12:00 97.9 65 16 126/67 98 11/23/16 08:00 98.3 73 14 119/70 99 11/23/16 03:59 98.2 64 18 110/56 94 11/22/16 22:00 69 11/22/16 20:00 98.7 72 18 121/72 99 11/22/16 20:00 98.5 69 18 146/66 98 11/22/16 18:21 76 11/22/16 17:17 76 11/22/16 16:27 72 11/22/16 15:23 85 11/22/16 15:07 98.7 73 17 113/78 97 11/22/16 14:47 73 11/22/16 11/22/16 11/23/16 15:00 23:00 07:00 Intake Total 367 ml 180 ml Output Total 525 ml 350 ml Balance -158 ml -170 ml Intake Oral 240 ml 180 ml IV Total 127 ml Output Urine Total 525 ml 350 ml # Bowel Movements 1 0 Laboratory Tests Test 11/22/16 06:49 White Blood Count 10.5 TH/MM3 Red Blood Count 3.86 MIL/MM3 Hemoglobin 10.0 GM/DL Hematocrit 30.4 % Mean Corpuscular Volume 78.9 FL Mean Corpuscular Hemoglobin 25.9 PG Mean Corpuscular Hemoglobin 32.9 % Concent Red Cell Distribution Width 15.3 % Platelet Count 229 TH/MM3 Mean Platelet Volume 9.6 FL Neutrophils (%) (Auto) 73.2 % Lymphocytes (%) (Auto) 14.5 % Monocytes (%) (Auto) 6.6 % Eosinophils (%) (Auto) 5.2 % Basophils (%) (Auto) 0.5 % Neutrophils # (Auto) 7.7 TH/MM3 Lymphocytes # (Auto) 1.5 TH/MM3 Monocytes # (Auto) 0.7 TH/MM3 Eosinophils # (Auto) 0.5 TH/MM3 Basophils # (Auto) 0.1 TH/MM3 CBC Comment AUTO DIFF Differential Comment AUTO DIFF CONFIRMED Laboratory Tests Test 11/22/16 11/23/16 06:49 10:03 Sodium Level 136 MEQ/L Potassium Level 3.6 MEQ/L Chloride Level 104 MEQ/L Carbon Dioxide Level 23.9 MEQ/L Anion Gap 8 MEQ/L Blood Urea Nitrogen 26 MG/DL Creatinine 1.84 MG/DL 1.98 MG/DL Estimat Glomerular Filtration 35 ML/MIN 33 ML/MIN Rate Random Glucose 80 MG/DL Calcium Level 8.2 MG/DL IMAGING: Chest CT 11/19/16 0000 Signed Impressions: Service Date/Time: Saturday, November 19, 2016 20:34 - CONCLUSION: 1. There is a thin rim of peripheral airspace disease in left lobe laterally and posteriorly which is a new finding since September. Trace pleural fluid. The apical scarring and nodular opacity on the left stable. 2. No adenopathy or pericardial effusion. Remote granulomatous disease. Moderate coronary calcifications. 3. Stable ectatic and tortuous thoracic aorta compared with September CT. Roosevelt Beauchamp MD Head CT 11/17/16 0000 Signed Impressions: Service Date/Time: Thursday, November 17, 2016 14:40 - CONCLUSION: Negative CT scan of the head. Josh Borjas MD FACR Abdomen CT 11/17/16 0000 Signed Impressions: Service Date/Time: Thursday, November 17, 2016 23:56 - CONCLUSION: 1. 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 2. Small left kidney. 3. Degenerative changes of the spine are noted and remote compression fractures of L2 and L3 identified. 4. Small pleural effusions bilaterally and left lower lobe atelectasis/consolidation. Refugio Birmingham MD Chest X-Ray 11/16/16 1643 Signed Impressions: Service Date/Time: Wednesday, November 16, 2016 16:51 - CONCLUSION: No acute disease. José Manuel Hernández MD PHYSICAL EXAMINATION GENERAL: No acute distress. Awake and alert. HEENT: No icterus. No conjunctival erythema. Oropharynx moist mucosa. NECK: Supple without adenopathy. LUNGS: Clear decreased breath sounds. HEART: Regular S1-S2. Heart sounds are distant. No audible murmurs. ABDOMEN: Bowel sounds present, obese, soft, nontender. BACK: No tenderness on palpation. EXTREMITIES: No clubbing or cyanosis or edema. SKIN: No rash. NEUROLOGIC: No gross focal findings. SKIN: No rash. PSYCHIATRIC: Pleasant, calm and cooperative. IMPRESSION Sepsis - strep viridans improved. No evidence of endocarditis. RECOMMENDATION: Continue IV Ceftriaxone x 2 more weeks. PICC ordered. IV antibiotic ordered on infusion form. Case management notified. Can follow up with ID Dr Nunez in one week. Scott Monte MD Nov 23, 2016 13:46
[2016-11-23 16:00] VITALS: BP 125/74; PULSE 67; RESP 14; TEMP 98.7; O2SAT 98
--- NOTE | 2016-11-23 17:18 | PD.CONS ---
HPI Service Nephrology Consult Requested By Reason for Consult Evaluate for Midline Placement, possible CKD hx Primary Care Physician No Primary Care Physician History of Present Illness This is a very pleasant 81 y/o male. He moved from [place] one month ago. He was admitted on 11/16 for fever/chills. Found to be septic, evaluated by ID. He was noted to have high grade Viridans strep bacteremia, also diagnosed with pneumonia. He is on IV Rocephin, Levaquin, and vancomycin. He is to have 2 weeks Rocephin treatment after discharge. We were consulted to give approval for midline. HE has a hx of HTN and hyperlipidemia. He has what appears to be CKD. His creatinine this admission ranges from 1.8-2.0. In 2015 his creatinine was 1.17, GFR of 60, which is consistent with CKD 2-3. He does not have electrolyte disorders, no edema, no shortness of breath or pain. He is a full code. (Ligia Adkins) Review of Systems Constitutional: DENIES: Fatigue, Fever Cardiovascular: DENIES: Chest pain Gastrointestinal: DENIES: Abdominal pain (Ligia Adkins) Past Family Social History Allergies: Coded Allergies: No Known Allergies (Unverified , 11/16/16) Past Medical History HTN Hyperlipidemia Hx DVT Past Surgical History AAA repair due to dissection Reported Medications Atorvastatin (Atorvastatin Calcium) 40 Mg Tab 40 Mg PO HS Prednisone 10 Mg Tab 10 Mg PO DAILY Atenolol 50 Mg Tab 50 Mg PO DAILY Doxazosin (Doxazosin Mesylate) 4 Mg Tab 4 Mg PO HS Active Ordered Medications Current Medications Medications (Trade) Dose Ordered Sig/Vitaliy Route Start Time Stop Time Status Last Admin (Apresoline Inj) 10 mg Q4H PRN IV PUSH 11/16/16 18:30 11/20/16 23:46 (Tenormin) 50 mg DAILY PO 11/17/16 09:00 11/23/16 08:28 (Cardura) 4 mg HS PO 11/16/16 21:00 11/22/16 20:26 (Deltasone) 10 mg DAILY PO 11/17/16 09:00 11/23/16 08:28 (Tylenol) 650 mg Q4H PRN PO 11/17/16 08:30 11/21/16 15:28 (Zofran Inj) 4 mg Q6H PRN IV 11/17/16 08:30 11/17/16 09:06 ([place] 5-325 Mg) 1 tab Q6H PRN PO 11/17/16 08:30 ([place] 10-325 Mg) 1 tab Q6H PRN PO 11/17/16 08:30 11/19/16 17:33 Naloxone HCl 0.4 mg 0.4 mg UNSCH PRN IV 11/17/16 08:30 (Rocephin Inj/NS Inj) 100 ml @ 200 mls/hr Q24H IV 11/17/16 12:00 11/23/16 12:06 Lactobacillus Acidophilus 1 tab 1 tab Q12HR PO 11/19/16 21:00 11/23/16 08:28 (Levaquin 750 Mg Premix Inj) 150 ml @ 100 mls/hr Q48H IV 11/19/16 21:00 11/21/16 20:24 Senna/Docusate Sodium 1 tab 1 tab BID PRN PO 11/20/16 10:00 Lactated Ringer's 1,000 ml @ 30 mls/hr Q24H PRN IV 11/22/16 02:15 11/25/16 02:14 (NS 500 ml Inj) 500 ml @ 30 mls/hr [id number] PRN IV 11/22/16 02:15 11/25/16 02:14 Family History no hx of renal impairment Social History former smoker denies ETOH from [place], recently moved to [facility] retired full code (Ligia Adkins) Physical Exam Vital Signs Vital Signs Date Time Temp Pulse Resp B/P Pulse Ox O2 Delivery O2 Flow Rate FiO2 11/23/16 16:00 98.7 67 14 125/74 98 11/23/16 12:00 97.9 65 16 126/67 98 11/23/16 08:00 98.3 73 14 119/70 99 11/23/16 03:59 98.2 64 18 110/56 94 11/22/16 22:00 69 11/22/16 20:00 98.7 72 18 121/72 99 11/22/16 20:00 98.5 69 18 146/66 98 11/22/16 18:21 76 11/22/16 17:17 76 Physical Exam General: Pleasant male, ambulating in hallway, in No acute distress. He is afebrile Heart: Regular rate and rhythm. No murmur. Lungs: clear in all [place], he is on room air. Breathing is nonlabored. Abdomen: Soft, nontender, nondistended. Extremities: No lower extremity edema. extremities warm, distal pulses strong Psych: Alert and oriented. follows commands, normal affect Laboratory Laboratory Tests Test 11/23/16 10:03 Creatinine 1.98 Estimat Glomerular Filtration 33 Rate Date/Time Procedure Status Source Growth 11/19/16 20:37 Gram Stain - Final Complete Sputum Expectorated Sputum 11/19/16 20:37 Sputum Culture - Final Complete Sputum Expectorated Sputum HEAVY GROWTH NORMAL RESPIRATORY MADELEINE 11/19/16 09:45 Aerobic Blood Culture - Preliminary Resulted Blood Peripheral NO GROWTH IN 4 DAYS 11/19/16 09:45 Anaerobic Blood Culture - Preliminary Resulted Blood Peripheral NO GROWTH IN 4 DAYS (Ligia Adkins) Result Diagram: 11/22/16 0649 11/23/16 1003 Imaging Last Impressions Chest CT 11/19/16 0000 Signed Impressions: Service Date/Time: Saturday, November 19, 2016 20:34 - CONCLUSION: 1. There is a thin rim of peripheral airspace disease in left lobe laterally and posteriorly which is a new finding since September. Trace pleural fluid. The apical scarring and nodular opacity on the left stable. 2. No adenopathy or pericardial effusion. Remote granulomatous disease. Moderate coronary calcifications. 3. Stable ectatic and tortuous thoracic aorta compared with Gemini CT. Roosevelt Beauchamp MD Head CT 11/17/16 0000 Signed Impressions: Service Date/Time: Thursday, November 17, 2016 14:40 - CONCLUSION: Negative CT scan of the head. Josh Borjas MD FACR Abdomen CT 11/17/16 0000 Signed Impressions: Service Date/Time: Thursday, November 17, 2016 23:56 - CONCLUSION: 1. 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 2. Small left kidney. 3. Degenerative changes of the spine are noted and remote compression fractures of L2 and L3 identified. 4. Small pleural effusions bilaterally and left lower lobe atelectasis/consolidation. Refugio Birmingham MD Chest X-Ray 11/16/16 1643 Signed Impressions: Service Date/Time: Wednesday, November 16, 2016 16:51 - CONCLUSION: No acute disease. José Manuel Hernández MD (Ligia Adkins) Assessment and Plan Problem List: (1) Sepsis Plan: ID has evaluated diagnosed with high grade viridans strep bacteremia Echo was negative for has LLL pneumonia needs 2 wks outpatient Rocephin treatment, okay to place Midline (2) Hypertension Plan: continue ordered medications (3) Renal insufficiency Plan: In 2014 he had what appeared to be CKD stage 2-3, creatinine 1.17, GFR 60s. this admission his creatinine ranged 1.8-2.0,. this may be his new baseline either way I would avoid PICC in anyone with CKD, midline is okay for temporary use he has no acute renal concerns I will follow with him in CKD clinic. Assessment and Plan thanks for the consult (Ligia Adkins) Assessment and Plan patient was seen and examined. Likely has CKD stage III. OK to discharge with midline, avoid piccline. Follow up in our CKD clinic. Agree with above assessment and plan. (Willy Cotton MD) Ligia Adkins Nov 23, 2016 17:18 Willy Cotton MD Nov 23, 2016 17:50
[2016-11-23 20:00] VITALS: BP 142/72; PULSE 68; PULSE 72; RESP 20; TEMP 98.8; O2SAT 100
[2016-11-23] MEDS: DOXAZOSIN MESYLATE 4 MG TAB PO SCH (22:07)
[2016-11-23] MEDS: LEVOFLOXACIN 750 MG PREMIX INJ 150 ML IV SCH (22:09)
[2016-11-24] VITALS: BP 125/65; PULSE 68; RESP 18; TEMP 98.7; O2SAT 96
[2016-11-24 04:00] VITALS: BP 136/71; PULSE 70; RESP 18; TEMP 98.4; O2SAT 96
[2016-11-24 08:00] VITALS: BP 140/70; PULSE 75; RESP 18; TEMP 97.4; O2SAT 98
[2016-11-24] MEDS: ATENOLOL 50 MG TAB PO SCH (08:15)
[2016-11-24] MEDS: predniSONE 10 MG TAB PO SCH (08:15)
[2016-11-24] MEDS: LACTOBACILLUS ACIDOPHILUS TAB PO SCH (08:15)
[2016-11-24] MEDS ORDERED: LACT PO (11:06)
--- NOTE | 2016-11-24 11:06 | HHI.DCPOC ---
Discharge Care Plan Diagnosis: (1) Renal insufficiency (2) Sepsis (3) Bacteremia due to Streptococcus (4) Metabolic encephalopathy (5) Hypertension (6) Elevated lactic acid level (7) H/O abdominal aortic aneurysm Goals to Promote Your Health * To prevent worsening of your condition and complications * To maintain your health at the optimal level Directions to Meet Your Goals Take your medications as prescribed Follow your dietary instruction Follow activity as directed Keep your appointments as scheduled Take your immunizations and boosters as scheduled If your symptoms worsen call your PCP, if no PCP go to Urgent Care Center or Emergency Room Smoking is Dangerous to Your Health. Avoid second hand smoke Call the 24-hour hour crisis hotline for domestic abuse at Hugh Ayala MD Nov 24, 2016 11:06
--- NOTE | 2016-11-24 11:07 | HHI.FF ---
Face to Face Verification Diagnosis: (1) Bacteremia due to Streptococcus (2) Sepsis (3) Renal insufficiency (4) Hypertension (5) Metabolic encephalopathy Home Health Nursing Order: Nursing assessment with vital signs IV medication administration I have seen patient Maverick De Leon on 11/24/16. My clinical findings support the need for the requested home health care services because: Infection w/ risk of complications I certify that my clinical findings support that this patient is homebound because: Unsafe to leave home unassisted Hugh Ayala MD Nov 24, 2016 11:06
--- NOTE | 2016-11-24 11:11 | HHI.DS ---
Discharge Summary Admission Date Nov 16, 2016 at 17:55 Discharge Date: Nov 24, 2016 Admitting Diagnosis sepsis (1) Sepsis ICD Code: A41.9 (2) Hypertension ICD Code: I10 (3) Bacteremia due to Streptococcus ICD Code: R78.81 (4) Metabolic encephalopathy ICD Code: G93.41 Procedures 11/22/16 NATHAN Brief History - From Admission Patient is an 89 year old man with a history of HTN who had 2 days of fevers and chills at home. He was jevon to the er by his . No recent travel ( came from [place] over a month ago). Complains of headache but no meningel signs on exam. He has a fever of 101.2 and tachycardia with elevated white count and lactic acid in ER. He is alert and oriented and he is having rigors in the ER. He denies dysuria, cough, chest pain, nausea or diarrhea. No recent procedures and no dental pain. He is admitted for further evaluation and empiric antibiotics. CBC/BMP: 11/22/16 0649 11/23/16 1003 Significant Findings Laboratory Tests Test 11/22/16 11/23/16 06:49 10:03 Red Blood Count 3.86 MIL/MM3 (4.50-5.90) Hemoglobin 10.0 GM/DL (13.0-17.0) Hematocrit 30.4 % (39.0-51.0) Mean Corpuscular Volume 78.9 FL (80.0-100.0) Mean Corpuscular Hemoglobin 25.9 PG (27.0-34.0) Neutrophils (%) (Auto) 73.2 % (16.0-70.0) Eosinophils (%) (Auto) 5.2 % (0.0-4.0) Eosinophils # (Auto) 0.5 TH/MM3 (0-0.4) Blood Urea Nitrogen 26 MG/DL (7-18) Creatinine 1.84 MG/DL 1.98 MG/DL (0.60-1.30) (0.60-1.30) Estimat Glomerular Filtration 35 ML/MIN (>89) 33 ML/MIN (>89) Rate Calcium Level 8.2 MG/DL (8.5-10.1) Imaging Last Impressions Chest CT 11/19/16 0000 Signed Impressions: Service Date/Time: Saturday, November 19, 2016 20:34 - CONCLUSION: 1. There is a thin rim of peripheral airspace disease in left lobe laterally and posteriorly which is a new finding since September. Trace pleural fluid. The apical scarring and nodular opacity on the left stable. 2. No adenopathy or pericardial effusion. Remote granulomatous disease. Moderate coronary calcifications. 3. Stable ectatic and tortuous thoracic aorta compared with Gemini CT. Roosevelt Beauchamp MD Lumbar Spine MRI 11/18/16 0000 Signed Impressions: Service Date/Time: November 17:12 - CONCLUSION: Extensive degenerative changes and spinal stenosis. Spinal stenosis worse at L3-L4. There is no abnormal contrast enhancement. Josh Borjas MD FACR Head CT 11/17/16 0000 Signed Impressions: Service Date/Time: Thursday, November 17, 2016 14:40 - CONCLUSION: Negative CT scan of the head. Josh Borjas MD FACR Abdomen CT 11/17/16 0000 Signed Impressions: Service Date/Time: Thursday, November 17, 2016 23:56 - CONCLUSION: 1. 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 2. Small left kidney. 3. Degenerative changes of the spine are noted and remote compression fractures of L2 and L3 identified. 4. Small pleural effusions bilaterally and left lower lobe atelectasis/consolidation. Refugio Birmingham MD Chest X-Ray 11/16/16 1643 Signed Impressions: Service Date/Time: Wednesday, November 16, 2016 16:51 - CONCLUSION: No acute disease. José Manuel Hernández MD PE at Discharge General: No acute distress. Heart: Regular rate and rhythm. No murmur. Lungs: Clear to auscultation bilaterally. Breathing is nonlabored. Abdomen: Soft, nontender, nondistended. Extremities: No lower extremity edema. Psych: Alert and oriented. Pt update on day of discharge The patient is ambulating in the [place] with the assistance of family. He has no complaints at this time. He wants to go home. Denies cough, dyspnea, chest pain. Hospital Course The patient was admitted for evaluation of fever and chills. He was started on IV antibiotics. He met sepsis criteria. Blood cultures were positive for Viridans Streptococcus. Infectious disease was consulted. Further imaging showed likely pneumonia. The patient was transferred from [place] to the [facility] for transesophageal echocardiogram. Cardiology was consulted and performed the NATHAN, which was unremarkable. Patient continued to improve clinically. Arrangements were made for outpatient antibiotics. Patient was cleared for discharge by infectious disease. Nephrology was consulted regarding chronic kidney disease. They authorized placement of a midline for the patient to receive outpatient antibiotics. Pt Condition on Discharge: Stable Discharge Disposition: Disch w/ Home Health Serv Discharge Time: > 30 minutes Discharge Instructions DIET: Follow Instructions for: Heart Healthy Diet Activities you can perform: Regular-No Restrictions Follow up Referrals: Infectious Disease - 1 Week with Marisol Nunez MD Nephrology with Willy Cotton MD PCP Follow-up - 2 Weeks New Medications: Lactobacillus Acidophilus (Acidophilus/l-Sporogenes) 1 Tab Tab 1 TAB PO Q12HR probiotic #30 Ref 0 TAB Continued Medications: Atenolol (Atenolol) 50 Mg Tab 50 MG PO DAILY Blood Pressure Management #30 Ref 0 TAB Atorvastatin (Atorvastatin) 40 Mg Tab 40 MG PO HS Cholesterol Management #30 Ref 0 TAB Doxazosin (Doxazosin) 4 Mg Tab 4 MG PO HS #30 Ref 0 TAB Prednisone (Prednisone) 10 Mg Tab 10 MG PO DAILY Ref 0 TAB Hugh Ayala MD Nov 24, 2016 11:11
[2016-11-24 12:00] VITALS: BP 130/70; PULSE 70; RESP 18; TEMP 98.5; O2SAT 99
--- NOTE | 2016-11-24 12:04 | HHI.NPPN ---
Subjective Renal Failure: Chronic, Acute Interval History He had a midline placed. To be discharged today. (Ligia Adkins) Objective Data Data 11/23/16 11/24/16 19:00 07:00 Intake Total 960 ml 120 ml Output Total 2 ml 800 ml Balance 958 ml -680 ml Intake Oral 960 ml 120 ml Output Urine Total 2 ml 800 ml # Bowel Movements 2 0 Vital Signs Date Time Temp Pulse Resp B/P Pulse Ox O2 Delivery O2 Flow Rate FiO2 11/24/16 08:00 97.4 75 18 140/70 98 11/24/16 04:00 98.4 70 18 136/71 96 11/24/16 00:00 98.7 68 18 125/65 96 11/23/16 20:00 98.8 68 20 142/72 100 11/23/16 20:00 72 11/23/16 16:00 98.7 67 14 125/74 98 11/23/16 12:00 97.9 65 16 126/67 98 11/23/16 12:00 70 (Ligia Adkins) -: 11/22/16 0649 11/23/16 1003 Tubes & Lines Comment midline right arm (Ligia Adkins) Physical Exam General Appearance: Well Developed, Well Nourished, Comfortable (Ligia Adkins) Eyes Eye Exam: Pupils Equal (Ligia Adkins) Ears & Nose Ears & Nose Exam: Tympanic Membranes Normal (Ligia Adkins) Throat Throat Exam: Oral Mucosa [place] & Moist (Ligia Adkins) Pulmonary Resp Exam: Clear Bilaterally, Breath Sounds Equal (Ligia Adkins) Cardiology CV Exam: Regular, Normal Sinus Rhythm, Good Perfusion (Ligia Adkins) Gastrointestinal/Abdomen GI Exam: Soft, Non-Tender, Bowel Sounds Present, Positive Bowel Movement ( Ligia Adkins) Musculoskeletal MS Exam: Joints Intact, Normal Gait, Normal Tone (Ligia Adkins) Integumentary Skin Exam: Clear, Warm, Dry, Intact (Ligia Adkins) Extremeties Extremities Exam: No Edema, Pedal Pulses Palpable (Ligia Adkins) Neurologic Neuro Exam: Alert, Awake, Oriented, Speech Clear, Moving All Extremities ( Ligia Adkins) Psychiatric Psych Exam: Appropriate Responses (Ligia Adkins) Assessment/Plan Discussed Condition With: Patient Assessment Summary: CKD Stage III Problem List: (1) Renal insufficiency Plan: In 2014 he had what appeared to be CKD stage 2-3, creatinine 1.17, GFR 60s. this admission his creatinine ranged 1.8-2.0,. this may be his new baseline I will follow with him in CKD clinic. To make appointment for 4-5 weeks. (2) Sepsis Plan: ID has evaluated, needs 2 weeks of Rocephin diagnosed with high grade viridans strep bacteremia s/p Midline placement (3) Hypertension Plan: continue ordered medications Plan he is cleared for discharge (Ligia Adkins) Problem List: (1) Renal insufficiency Plan: In 2014 he had what appeared to be CKD stage 2-3, creatinine 1.17, GFR 60s. this admission his creatinine ranged 1.8-2.0,. this may be his new baseline I will follow with him in CKD clinic. To make appointment for 4-5 weeks. (2) Sepsis Plan: ID has evaluated, needs 2 weeks of Rocephin diagnosed with high grade viridans strep bacteremia s/p Midline placement (3) Hypertension Plan: continue ordered medications Plan patient was seen and examined. Agree with above assessment and plan. GFR likely at baseline. Followup in our CKD clinic. (Willy Cotton MD) Ligia Adkins Nov 24, 2016 12:03 Willy Cotton MD Nov 24, 2016 18:31
[2016-11-24] MEDS: cefTRIAXone INJ 2,000 MG in SODIUM CHLORIDE 0.9% INJ 100 ML IV SCH (12:13)
== END 2016-11-24 22:32 | disposition home health service (06) | DRG 871 ==
LOC: PHED 16:29 → PHEDA 17:55 → PH3A 22:05 → HCIS 11-20 20:22 → HCIN 11-21 15:50 → N05B 11-22 18:58
PROVIDERS: ADMIT Family Medicine; ATTEND Family Medicine
PROC: B24BZZ4 Ultrasonography of Heart with Aorta, Transesophageal (ICD-10-PCS; principal; 2016-11-22)
DX: A40.8 Other streptococcal sepsis (principal); G93.41 Metabolic encephalopathy; R65.20 Severe sepsis without septic shock; J18.9 Pneumonia, unspecified organism; D63.8 Anemia in other chronic diseases classified elsewhere; N18.3 Chronic kidney disease, stage 3 (moderate); F17.210 Nicotine dependence, cigarettes, uncomplicated; K21.9 Gastro-esophageal reflux disease without esophagitis; I12.9 Hypertensive chronic kidney disease with stage 1 through stage 4 chronic kidney disease, or unspecified chronic kidney disease
CPT/HCPCS: 36569; 70450; 71010; 71250; 72158; 74150; 76937; 80048; 80053; 81001; 82550; 82565; 83605; 84484; 85025; 87040; 87070; 87186; 87205; 87804; 93005; 93306; 93312; 93320; 93325; 96361; 96374; 96375; A9577; J0360; J0696; J1956; J2405; J2543; J3370; J7030; J7050; J7512; Q9963

== ENCOUNTER 2017-01-19 16:11 | Emergency (ER) | payer OTHER ==
[~2017-01-19] VITALS: Ht 157.5 cm; Wt 64.0 kg
[~2017-01-19 16:11] MED LIST changes: +ATOR40TA16 PO; -HYDR-3533 PO; +LACT PO; -MEDR4PAK PO
[2017-01-19 16:23] VITALS: BP 159/83; PULSE 76; RESP 16; TEMP 98.5; O2SAT 98
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
== END 2017-01-19 19:48 | disposition home or self-care (01) ==
LOC: PHEFT 16:11
DX: S43.401A Unspecified sprain of right shoulder joint, initial encounter (principal); M54.5 Low back pain; M19.90 Unspecified osteoarthritis, unspecified site; I10 Essential (primary) hypertension; F17.210 Nicotine dependence, cigarettes, uncomplicated; V49.59XA Passenger injured in collision with other motor vehicles in traffic accident, initial encounter
CPT/HCPCS: 72100; 72125; 72128; 72131; 73030

== ENCOUNTER 2017-02-18 07:33 | Inpatient (IN) | payer OTHER, MEDICARE ==
[~2017-02-18] VITALS: Ht 157.5 cm; Wt 63.2 kg
[2017-02-18] VITALS (13 sets, daily range): BP systolic 103–191; BP diastolic 60–98; PULSE 57–68; RESP 16–18; TEMP 97.4–98.2; O2SAT 96–99
[2017-02-18] MEDS ORDERED: SODIUM CHLORIDE 0.9% FLUSH 10 ML FLUSH IVF PRN (08:00)
[2017-02-18] MEDS ORDERED: ONDANSETRON HCL 4 MG/2 ML VIAL IVP ONE (08:00)
--- NOTE | 2017-02-18 08:03 | PD ---
HPI Chief Complaint: Dizziness Time Seen by Provider: 07:40 Travel History International Travel<30 days: No Contact w/Intl Traveler<30days: No Traveled to known affect area: No History of Present Illness HPI This patient woke up at 1 AM last night and was dizzy and lightheaded. He tried to get to the bathroom but was staggering down the hallway and had a very difficult time walking. He was off balance. He had to hold onto the keith to avoid falling. He did not have any specific muscle group weakness or sensory loss or speech problems or pain. He went back to bed and woke up this morning with the same symptoms. He presents to the ER 7 hours after he noticed the symptoms but they could've started longer since he was sleeping when it started. If this turns out to be an ischemic posterior circulation stroke he is not a candidate for TPA as he presents out of the window. Symptoms severity is moderate. No alleviating factors. Symptoms are exacerbated by standing and trying to walk. His gait is very much off. He normally walks fine without assistive device. He does not have headache or head injury or fever. PFSH Past Medical History Arthritis: Yes Asthma: No Autoimmune Disease: No Heart Rhythm Problems: No Cancer: No Cardiovascular Problems: Yes High Cholesterol: Yes Chest Pain: No Congestive Heart Failure: No COPD: No Cerebrovascular Accident: No Diminished Hearing: No Endocrine: No Gastrointestinal Disorders: Yes GERD: Yes Genitourinary: Yes Hiatal Hernia: No Hypertension: Yes Immune Disorder: No Kidney Stones: Yes Musculoskeletal: Yes Neurologic: Yes Psychiatric: No Reproductive: No Respiratory: Yes Migraines: Yes Renal Failure: No Seizures: No Sleep Apnea: No Ulcer: No Past Surgical History Abdominal Aneurysm Repair: Yes (2014) Abdominal Surgery: Yes (appendectomy and AAA repair) Appendectomy: Yes Cardiac Surgery: No Cholecystectomy: Yes Ear Surgery: No Endocrine Surgery: No Eye Surgery: No Genitourinary Surgery: No Gynecologic Surgery: No Oral Surgery: No Thoracic Surgery: No Other Surgery: Yes Social History Alcohol Use: No Tobacco Use: Yes (1 cigarette daily) Substance Use: No Allergies-Medications (Allergen,Severity, Reaction): Coded Allergies: No Known Allergies (Unverified Adverse Reaction, Unknown, 02/18/17) Reported Meds & Prescriptions Reported Meds & Active Scripts Active Reported Prednisone 10 Mg Tab 10 Mg PO DAILY Atenolol 50 Mg Tab 50 Mg PO DAILY Atorvastatin (Atorvastatin Calcium) 40 Mg Tab 40 Mg PO HS Review of Systems General / Constitutional: No: Fever Eyes: No: Visual changes HENT: Positive: Lightheadedness, No: Headaches Cardiovascular: No: Chest Pain or Discomfort Respiratory: No: Shortness of Breath Gastrointestinal: Positive: Nausea, No: Abdominal Pain Genitourinary: No: Dysuria Musculoskeletal: No: Pain Skin: No Rash Neurologic: Positive: Dizziness, Ataxia, No: Weakness Psychiatric: No: Depression Endocrine: No: Polydipsia Hematologic/Lymphatic: No: Easy Bruising Physical Exam Narrative GENERAL: Well-nourished, well-developed patient in no apparent distress. SKIN: Focused skin assessment reveals no rash and nodules. Skin is Warm and dry. HEAD: Atraumatic. Normocephalic. EYES: Pupils equal and round. No scleral icterus. No injection or drainage. ENT: No nasal bleeding or discharge. Mucous membranes pink and moist. NECK: Trachea midline. No JVD. CARDIOVASCULAR: Regular rate and rhythm. No murmur appreciated. RESPIRATORY: No accessory muscle use. Clear to auscultation. Breath sounds equal bilaterally. GASTROINTESTINAL: Abdomen soft, non-tender, nondistended. Hepatic and splenic margins not palpable. MUSCULOSKELETAL: No obvious deformities. No clubbing. No cyanosis. No edema. NEUROLOGICAL: Awake and alert. No obvious cranial nerve deficits. Motor grossly within normal limits. Normal speech. His gait is very much off. He staggers forward and seems like he will topple over if not held up. PSYCHIATRIC: Appropriate mood and affect; insight and judgment normal. Data Data Last Documented VS Vital Signs Date Time Temp Pulse Resp B/P (MAP) Pulse Ox O2 Delivery O2 Flow Rate FiO2 02/18/17 12:43 57 16 128/75 (92) 97 Room Air 02/18/17 07:52 97.8 Orders Orders Electrocardiogram (02/18/17 07:51) Prothrombin Time / Inr (Pt) (02/18/17 07:51) Act Partial Throm Time (Ptt) (02/18/17 07:51) Complete Blood Count With Diff (02/18/17 07:51) Basic Metabolic Panel (Bmp) (02/18/17 07:51) Ecg Monitoring (02/18/17 07:51) Iv Access Insert/Monitor (02/18/17 07:51) Oximetry (02/18/17 07:51) Blood Glucose (02/18/17 07:51) Ondansetron Inj (Zofran Inj) (02/18/17 08:00) Sodium Chloride 0.9% Flush (Ns Flush) (02/18/17 08:00) Mri Brain W/O Contrast (02/18/17 ) Meclizine (Antivert) (02/18/17 10:15) Clonidine (Catapres) (02/18/17 10:15) Sodium Chlor 0.9% 1000 Ml Inj (Ns 1000 M (02/18/17 12:00) Admit Order (Ed Use Only) (02/18/17 12:58) Labs Laboratory Tests Test 02/18/17 07:55 White Blood Count 10.2 TH/MM3 Red Blood Count 4.69 MIL/MM3 Hemoglobin 11.8 GM/DL Hematocrit 36.6 % Mean Corpuscular Volume 78.1 FL Mean Corpuscular Hemoglobin 25.1 PG Mean Corpuscular Hemoglobin Concent 32.2 % Red Cell Distribution Width 15.5 % Platelet Count 151 TH/MM3 Mean Platelet Volume 9.6 FL Neutrophils (%) (Auto) 66.8 % Lymphocytes (%) (Auto) 22.3 % Monocytes (%) (Auto) 7.8 % Eosinophils (%) (Auto) 2.6 % Basophils (%) (Auto) 0.5 % Neutrophils # (Auto) 6.7 TH/MM3 Lymphocytes # (Auto) 2.3 TH/MM3 Monocytes # (Auto) 0.8 TH/MM3 Eosinophils # (Auto) 0.3 TH/MM3 Basophils # (Auto) 0.1 TH/MM3 CBC Comment DIFF FINAL Differential Comment Prothrombin Time 10.4 SEC Prothromb Time International Ratio 0.9 RATIO Activated Partial Thromboplast Time 22.5 SEC Blood Urea Nitrogen 31 MG/DL Creatinine 1.90 MG/DL Random Glucose 102 MG/DL Calcium Level 8.5 MG/DL Sodium Level 142 MEQ/L Potassium Level 3.8 MEQ/L Chloride Level 107 MEQ/L Carbon Dioxide Level 29.8 MEQ/L Anion Gap 5 MEQ/L Estimat Glomerular Filtration Rate 34 ML/MIN MDM Medical Decision Making Medical Screen Exam Complete: Yes Emergency Medical Condition: Yes Medical Record Reviewed: Yes Differential Diagnosis Posterior circulation stroke, hypertensive urgency or emergency, intracranial hemorrhage, vertigo Narrative Course I have reviewed the patient's electronic medical record. I reviewed his admission from November 2016 where he had extensive imaging of chest abdomen and spine but not brain imaging Presentation is vague and a bit confusing but I think he may have had a posterior circulation stroke given his ataxia and dizziness. He presents with a blood pressure 194 systolic If he has had ischemic stroke that should be watched closely but not treated under 220 systolic However with his known aortic abdominal aneurysm 4.3 x 3.7 cm he should have better control of the blood pressure so this will be challenging to manage. He did not take any medications this morning. IV placed CBC is normal Metabolic profile shows renal insufficiency with chronic stage IIIB kidney disease Coagulation studies are normal I reviewed his EKG which shows sinus rhythm without ectopy or ST elevation Extended cardiac monitoring reveals sinus rhythm without ectopy Brain MRI is negative for acute stroke I ambulated with him and he did poorly. If not held up by I think he would've fell over. He says he normally walks fine. Extensive workup was negative Gave him a dose of clonidine and a dose of meclizine This iatrogenically made him hypotensive to 90/60 I gave him a liter of saline and some time and his blood pressure came up to 120 He still ambulance very poorly and will certainly fall He is still dizzy and he is also having speech stuttering and slurring which is new for him. He will require admission for intractable dizziness and ataxia with speech problems. Call placed to hospitalist to discuss Diagnosis Primary Impression: Dizziness, nonspecific Additional Impressions: Ataxia Slurred speech Accelerated hypertension Admitting Information Admitting Physician Requests: Admit Hugh Barahona MD Feb 18, 2017 08:03
[2017-02-18 08:05] LABS: AUTOMATED NEUTROPHIL # 6.7 TH/MM3 (1.8-7.7); BASOPHIL # 0.1 TH/MM3 (0-0.2); BASOPHIL % 0.5 % (0.0-2.0); EOSINOPHIL # 0.3 TH/MM3 (0-0.4); EOSINOPHIL % 2.6 % (0.0-4.0); HEMATOCRIT 36.6 % (39.0-51.0); HEMO FLAGS DIFF FINAL; LYMPH % 22.3 % (9.0-44.0); LYMPHOCYTE # 2.3 TH/MM3 (1.0-4.8); MEAN CELL VOLUME 78.1 FL (80.0-100.0); MEAN CORPUSCULAR HEMOGLOBIN 25.1 PG (27.0-34.0); MEAN CORPUSCULAR HGB CONC 32.2 % (32.0-36.0); MONO % 7.8 % (0.0-8.0); NEUT % 66.8 % (16.0-70.0); PLATELET COUNT 151 TH/MM3 (150-450); RED BLOOD COUNT 4.69 MIL/MM3 (4.50-5.90); RED CELL DISTRIBUTION WIDTH 15.5 % (11.6-17.2); WHITE BLOOD COUNT 10.2 TH/MM3 (4.0-11.0)
[2017-02-18 08:20] LABS: POTASSIUM 3.8 MEQ/L (3.5-5.1)
[2017-02-18 08:22] LABS: BICARBONATE 29.8 MEQ/L (21.0-32.0)
[2017-02-18 08:24] LABS: APTT (PATIENT) 22.5 SEC (24.3-30.1); INTERNATIONAL NORMALIZED RATIO 0.9 RATIO; PROTHROMBIN TIME - PATIENT 10.4 SEC (9.8-11.6)
--- NOTE | 2017-02-18 10:09 | RADRPT ---
EXAM DATE/TIME: 02/18/2017 09:54 [facility] COMPARISON: No previous studies available for comparison. INDICATIONS : CVA. MEDICAL HISTORY : Hypertension. SURGICAL HISTORY : Abdominal aortic aneurysm repair. Appendectomy. ENCOUNTER: Initial ACUITY: 1 day PAIN SCORE: 4/10 LOCATION: head TECHNIQUE: Multiplanar, multisequence MRI of the brain was performed without contrast. FINDINGS: Marked periventricular white matter changes are evident. There is no restricted diffusion evident There is mild central and cortical atrophy with aphasia ventricular and sulcal spaces There are no extra-axial fluid collections appreciated Midline structures are intact Posterior fossa appears normal There is no parenchymal hemorrhage. CONCLUSION: Marked periventricular white matter changes with central and cortical atrophy. There is no restricted diffusion to suggest acute ischemic event Josh Borjas MD FACR on February 18, 2017 at 10:06 Board Certified Radiologist. This report was verified electronically.
[2017-02-18] MEDS ORDERED: cloNIDine HCL 0.2 MG TAB PO ONE (10:15)
[2017-02-18] MEDS ORDERED: MECLIZINE HCL 25 MG TAB PO ONE (10:15)
[2017-02-18] MEDS ORDERED: SODIUM CHLOR 0.9% 1000 ML INJ 1,000 ML IV ONE (12:00)
[2017-02-18] MEDS ORDERED: GLUCAGON 1 MG/ML VIAL OTHER PRN (13:30)
[2017-02-18] MEDS ORDERED: THIAMINE HCL 100 MG TAB PO ONE (13:30)
[2017-02-18] MEDS ORDERED: DEXTROSE 50% IN WATER 50 ML VIAL(D50) IV PUSH PRN (13:30)
[2017-02-18] MEDS ORDERED: SODIUM CHLORIDE 0.9% FLUSH 5 ML FLUSH IV FLUSH PRN (13:30)
[2017-02-18] MEDS: SODIUM CHLOR 0.9% 1000 ML INJ 1,000 ML IV SCH (14:57)
[2017-02-18] MEDS: HEPARIN SODIUM - SQ 10,000 UNITS/ML VIAL SQ SCH ×2 (14:57→22:50)
[2017-02-18] MEDS ORDERED: predniSONE 10 MG TAB PO ONE (15:00)
--- NOTE | 2017-02-18 16:25 | HHI.HP ---
HPI Service [facility] ([place], [place])ists Primary Care Physician Chaparro Pham MD Admission Diagnosis intract dizzyness,ataxia,speech slurring/stuttering,accel htn Diagnoses: (1) Dizziness, nonspecific Diagnosis: Principal (2) Accelerated hypertension Diagnosis: Principal (3) Ataxia Diagnosis: Principal (4) Slurred speech Diagnosis: Principal Chief Complaint: Dizziness with slurred speech and ataxia Travel History International Travel<30 Days: No Contact w/Intl Traveler <30 Da: No Traveled to Known Affected Are: No History of Present Illness Written by Hugh Anand, acting as scribe for Dr. Webb on 02/18/17 at 16 :08. 81-year-old male with known history of hypertension, AAA aneurysm repair, history DVT, hyperlipidemia who presented to hospital because acute onset of neurological symptoms. Patient states that he was in his normal state of health until 1 AM this morning when he got severe dizziness where he states that the room was spinning. Patient indicates that he was having lightheadedness. He could not stand up or walk. He also had slurred speech. Patient denied any fever, chills. He has had some nausea without any vomiting. He has had headache that he states that his normal. He has had weakness and bilateral upper extremities. Patient has undergone multiple radiological studies with MRI of brain which did not indicate any acute abnormality. Cervical spine CT which did not indicate any abnormality. Lumbar spine CT does show spinal stenosis noted at L3-L4, L4-L5, patient had MRI evaluation of his lumbar spine 2 months ago and it did indicate severe spinal stenosis with near complete obliteration of the thecal sac with bilateral neural foraminal encroachment. At the time evaluating the patient he states that he still has significant dizziness despite the use of Antivert. Because of the multiple neurological symptoms it was recommended by the ER physician the patient be admitted for further evaluation and management. Review of Systems Constitutional: COMPLAINS OF: Dizziness Ears, nose, mouth, throat: COMPLAINS OF: Vertigo Neurologic: COMPLAINS OF: Abnormal gait, Headache, Speech Problems, Poor Balance Except as stated in HPI: all other systems reviewed are Neg Past Family Social History Past Medical History Hypertension Hyperlipidemia History DVT History of cardiac arrest Past Surgical History Repair of ruptured abdominal aortic aneurysm with a tube graft Appendectomy Cholecystectomy Reported Medications Reported Meds & Active Scripts Active Reported Atorvastatin (Atorvastatin Calcium) 40 Mg Tab 40 Mg PO HS Prednisone 10 Mg Tab 10 Mg PO DAILY Atenolol 50 Mg Tab 50 Mg PO DAILY Allergies: Coded Allergies: No Known Allergies (Unverified Allergy, Unknown, 02/18/17) Family History Family history is reviewed, patient states that his family had almost everything. He was not specific. Social History Patient continues to smoke he is down to 1 cigarette a day he has been smoking since he was 17 years old. He denies any alcohol or illicit drugs Physical Exam Vital Signs Vital Signs Date Time Temp Pulse Resp B/P (MAP) Pulse Ox O2 Delivery O2 Flow Rate FiO2 02/18/17 13:45 97.4 60 18 168/72 (104) 98 02/18/17 13:35 02/18/17 12:43 57 16 128/75 (92) 97 Room Air 02/18/17 12:00 96 Room Air 02/18/17 11:40 60 17 103/60 (74) 96 Room Air 02/18/17 10:15 61 18 183/89 (120) 99 02/18/17 09:20 65 18 134/71 (92) 99 02/18/17 07:58 98 Room Air 02/18/17 07:52 97 Room Air 02/18/17 07:52 97.8 65 18 191/98 (129) 98 Room Air 02/18/17 07:35 97.7 65 18 178/92 (120) 97 Physical Exam GENERAL: Well-developed, well-nourished, in no acute distress. alert and orientated HEENT: Head is normocephalic without any lesions or masses noted. Facial features are symmetric. Eyes: Pupils equal round reactive to light. Extraocular muscles are intact. Conjunctivae were clear. Lateral nystagmus noted. Oropharyngeal: Pharynx without any erythema edema. Tongue is midline without deviation. Buccal mucosa is moist without any masses or lesions NECK: Supple without any masses. Trachea midline no deviation. No JVD, no bruits are appreciated CARDIAC: Regular rhythm, regular rate. S1/S2 are heard. No murmurs gallops or rubs. LUNGS: Clear to auscultation bilaterally. No wheeze, rhonchi or rales. No use of accessory muscles on inspiration or expiration. ABDOMEN: Soft, nontender. Nondistended. Bowel sounds heard in all 4 quadrants. No organomegaly or masses. Negative rebound, negative guarding EXTREMITIES: No edema, pulses are equal bilaterally. No cyanosis or clubbing NEUROLOGY: Mood and affect appear appropriate. Cranial nerves II through XII grossly intact. Muscle strength 5/5 in upper and lower extremities bilaterally. Deep tendon reflexes are 2+ in upper and lower extremities bilaterally. Hailey maneuver was performed without any response Laboratory Laboratory Tests Test 02/18/17 07:55 02/18/17 14:20 White Blood Count 10.2 Red Blood Count 4.69 Hemoglobin 11.8 Hematocrit 36.6 Mean Corpuscular Volume 78.1 Mean Corpuscular Hemoglobin 25.1 Mean Corpuscular Hemoglobin Concent 32.2 Red Cell Distribution Width 15.5 Platelet Count 151 Mean Platelet Volume 9.6 Neutrophils (%) (Auto) 66.8 Lymphocytes (%) (Auto) 22.3 Monocytes (%) (Auto) 7.8 Eosinophils (%) (Auto) 2.6 Basophils (%) (Auto) 0.5 Neutrophils # (Auto) 6.7 Lymphocytes # (Auto) 2.3 Monocytes # (Auto) 0.8 Eosinophils # (Auto) 0.3 Basophils # (Auto) 0.1 CBC Comment DIFF FINAL Differential Comment Prothrombin Time 10.4 Prothromb Time International Ratio 0.9 Activated Partial Thromboplast Time 22.5 Blood Urea Nitrogen 31 Creatinine 1.90 Random Glucose 102 Calcium Level 8.5 Sodium Level 142 Potassium Level 3.8 Chloride Level 107 Carbon Dioxide Level 29.8 Anion Gap 5 Estimat Glomerular Filtration Rate 34 Ethyl Alcohol Level LESS THAN 3 Result Diagram: 02/18/17 0755 02/18/17 0755 Imaging Last Impressions Brain MRI 02/18/17 0000 Signed Impressions: Service Date/Time: Saturday, February 18, 2017 09:54 - CONCLUSION: Marked periventricular white matter changes with central and cortical atrophy. There is no restricted diffusion to suggest acute ischemic event Josh Borjas MD FACR Caprini VTE Risk Assessment Caprini VTE Risk Assessment: Mod/High Risk (score >= 2) Caprini Risk Assessment Model Point Value = 1 Point Value = 2 Point Value = 3 Point Value = 5 Age 41-60 Minor surgery BMI > 25 kg/m2 Swollen legs Varicose veins or History of unexplained or recurrent spontaneous Oral contraceptives or hormone replacement Sepsis (< 1 month) Serious lung disease, including pneumonia (< 1 month) Abnormal pulmonary function Acute myocardial infarction Congestive heart failure (< 1 month) History of inflammatory bowel disease Medical patient at bed rest Age 61-74 Arthroscopic surgery Major open surgery (> 45 min) Laparoscopic surgery (> 45 min) Malignancy Confined to bed (> 72 hours) Immobilizing plaster cast Central venous access Age >= 75 History of VTE Family history of VTE Factor V Leiden Prothrombin [id number] Lupus anticoagulant Anticardiolipin antibodies Elevated serum homocysteine Heparin-induced thrombocytopenia Other congenital or acquired thrombophilia Stroke (< 1 month) Elective arthroplasty Hip, pelvis, or leg fracture Acute spinal cord injury (< 1 month) Prophylaxis Regimen Total Risk Factor Score Risk Level Prophylaxis Regimen 0-1 Low Early ambulation 2 Moderate Order ONE of the following: *Sequential Compression Device (SCD) *Heparin 5000 units SQ BID 3-4 Higher Order ONE of the following medications: *Heparin 5000 units SQ TID *Enoxaparin/Lovenox 40 mg SQ daily (WT < 150 kg, CrCl > 30 mL/min) *Enoxaparin/Lovenox 30 mg SQ daily (WT < 150 kg, CrCl > 10-29 mL/min) *Enoxaparin/Lovenox 30 mg SQ BID (WT < 150 kg, CrCl > 30 mL/min) AND/OR *Sequential Compression Device (SCD) 5 or more Highest Order ONE of the following medications: *Heparin 5000 units SQ TID (Preferred with Epidurals) *Enoxaparin/Lovenox 40 mg SQ daily (WT < 150 kg, CrCl > 30 mL/min) *Enoxaparin/Lovenox 30 mg SQ daily (WT < 150 kg, CrCl > 10-29 mL/min) *Enoxaparin/Lovenox 30 mg SQ BID (WT < 150 kg, CrCl > 30 mL/min) AND *Sequential Compression Device (SCD) Assessment and Plan Assessment and Plan //Neurological symptoms to include dizziness, slurred speech, weakness, headache , ataxia, rule out acute intracranial process, stroke, TIA - Neurological workup will be ascertained. Patient was unresponsive to Hailey maneuver - MRI of brain does not indicate any acute abnormality - MRI of the brain will be obtained - Neurology consulted for further recommendations - Further testing to include B12, folate, sedimentation rate, RPR, lipid panel, hemoglobin A1c - PT/OT/ST evaluations //Hypertension - Permissive hypertension at this time //Chronic kidney disease stage III - Continue monitor renal function - Avoid nephrotoxins //Lumbar spinal stenosis - Physical therapy evaluation - Recommend outpatient follow-up //DVT prevention - Sequential compression devices Physician Certification 2 Midnight Certification Type: Admission for Inpatient Services Order for Inpatient Services The services are ordered in accordance with Medicare regulations or non- Medicare payer requirements, as applicable. In the case of services not specified as inpatient-only, they are appropriately provided as inpatient services in accordance with the 2-midnight benchmark. Estimated LOS (days): 2 days is the estimated time the patient will need to remain in the hospital, assuming treatment plan goals are met and no additional complications. Post-Hospital Plan: Not yet determined Notes: This note was transcribed by verito Anand. I, Dr. Damien Webb personally performed the history, physical exam, and medical decision making; and confirmed the accuracy of the information in the transcribed note. Authenticated by Dr. Damien Webb on 02/19/17 at 16:43. Hugh Anand Feb 18, 2017 16:24 Damien Webb MD Feb 19, 2017 16:44
--- NOTE | 2017-02-18 16:31 | RADRPT ---
EXAM DATE/TIME: 02/18/2017 15:48 [facility] COMPARISON: No previous studies available for comparison. INDICATIONS : CVA. MEDICAL HISTORY : Hypertension. SURGICAL HISTORY : Abdominal aortic aneurysm repair. Appendectomy. ENCOUNTER: Initial ACUITY: 1 day PAIN SCORE: 0/10 LOCATION: head Please note a normal MRA of the brain does not entirely exclude the possibility of a small aneurysm, nor the possibility of distal intracranial vessel disease. TECHNIQUE: 3D time of flight MRA was performed. Source images, multiplanar STS MIP, and 3D volume MIP reconstru ctions were reviewed. FINDINGS: Moderate atherosclerotic intracranial vascular disease without major branch vessel occlusion. CONCLUSION: Negative for major branch vessel occlusion. Josh Borjas MD FACR on February 18, 2017 at 16:29 Board Certified Radiologist. This report was verified electronically.
[2017-02-18] MEDS: INSULIN ASPART SUPPLEMENTAL SCALE SQ SCH ×2 (17:00→19:51)
[2017-02-18 18:01] LABS: HEMOGLOBIN A1a 1.6 %; HEMOGLOBIN A1b 2.5 %; HEMOGLOBIN Ao 81.3 %; HEMOGLOBIN LA1C 2.5 %; HEMOGLOBIN P3 6.9 %
--- NOTE | 2017-02-18 18:01 | EKG ---
Date Performed: 02/18/2017 Time Performed: 07:41:22 PTAGE: 81 years EKG: Sinus rhythm INFERIOR MYOCARDIAL INFARCTION ABNORMAL ECG PREVIOUS TRACING : 11/16/2016 16.42 DOCTOR: Demar Goodrich Interpretating Date/Time 02/18/2017 17:58:37
[2017-02-18] MEDS: SODIUM CHLORIDE 0.9% FLUSH 5 ML FLUSH IV FLUSH SCH (19:51)
[2017-02-18] MEDS: ATORVASTATIN 40 MG TAB PO SCH (19:52)
--- NOTE | 2017-02-18 21:28 | MB ---
cc: AMY SUÁREZ DATE OF CONSULTATION 02/18/17 REASON FOR CONSULTATION Dizziness. HISTORY OF PRESENT ILLNESS Mr. De Leon is a very nice 81-year-old man who around 1 o'clock this morning woke up and noted severe vertigo where he felt the room spinning. He had no focal deficits. No headache. He did have some slurred speech but no focal weakness. No double vision. His symptoms are positionally related as well. PAST MEDICAL HISTORY History of DVT, AAA aneurysm repair, hyperlipidemia, history of cardiac arrest, appendectomy, cholecystectomy. MEDICATIONS At home: 1. Atenolol. 2. Prednisone. 3. Atorvastatin. ALLERGIES None known. NEUROLOGIC EXAMINATION VITAL SIGNS: Blood pressure is 161/81, pulse 61, respiratory rate is 18, temperature 97 degrees. NEURO: Higher cortical functions are normal. Cranial nerves: The extraocular movements are normal. There is no nystagmus. Pupils equal, reactive. There is no facial asymmetry. Motor exam he has 5/5 strength of all groups in both upper and lower extremities. There is no drift. Reflexes symmetric. IMAGING STUDIES MRI brain shows ischemic demyelinization, chronic changes. No acute change. No acute stroke identified. MRA of the brain is normal. LABORATORY DATA White count 10,200, hemoglobin 11.8, hematocrit 36%, platelets are 151,000, sed rate 36, PT 10.4, INR 0.9, APTT 22.5. Sodium is 142, potassium 3.8, chloride 107, CO2 29.8, BUN is 31, creatinine 1.9, GFR is 34. Tox screen negative. IMPRESSION Probable positional vertigo, i.e. labyrinthitis. RECOMMENDATIONS Trial of meclizine 25 milligrams t.i.d. Consider physical therapy for vestibular rehabilitation if no improvement. MD MICHELE Faustin/JILL /8:50 PM /9:21 PM
[2017-02-18] MEDS: MECLIZINE HCL 25 MG TAB PO SCH (22:49)
[2017-02-19] VITALS (10 sets, daily range): BP systolic 111–171; BP diastolic 57–97; PULSE 50–64; RESP 16–18; TEMP 97–98.7; O2SAT 95–98
[2017-02-19] MEDS: SODIUM CHLOR 0.9% 1000 ML INJ 1,000 ML IV SCH ×2 (03:18→15:05)
[2017-02-19] MEDS: MECLIZINE HCL 25 MG TAB PO SCH ×3 (05:49→21:00)
[2017-02-19] MEDS: INSULIN ASPART SUPPLEMENTAL SCALE SQ SCH ×2 (08:00→11:06)
[2017-02-19] MEDS: ASPIRIN 81 MG CHEW TAB PO SCH (08:21)
[2017-02-19] MEDS: THIAMINE HCL 100 MG TAB PO SCH (08:21)
[2017-02-19] MEDS: predniSONE 10 MG TAB PO SCH (08:22)
[2017-02-19] MEDS: SODIUM CHLORIDE 0.9% FLUSH 5 ML FLUSH IV FLUSH SCH ×2 (08:22→20:57)
[2017-02-19] MEDS: ATENOLOL 50 MG TAB PO SCH (08:57)
[2017-02-19 09:24] LABS: HDL CHOLESTEROL 47.6 MG/DL (40.0-60.0)
--- NOTE | 2017-02-19 11:52 | HHI.PR ---
Subjective Remarks Patient seen and examined today for follow-up on profound dizziness, ataxia. Patient states that he is doing much better. He is eager to go home. Objective Vitals Vital Signs Date Time Temp Pulse Resp B/P (MAP) Pulse Ox O2 Delivery O2 Flow Rate FiO2 02/19/17 08:05 95 21 02/19/17 08:00 97.8 63 18 171/96 (121) 98 02/19/17 04:00 98.7 62 18 138/85 (102) 97 02/19/17 00:00 97.7 64 16 142/97 (112) 97 02/18/17 23:00 66 02/18/17 20:00 98.2 68 18 131/83 (99) 96 02/18/17 16:18 96 21 02/18/17 16:00 97.8 60 18 161/81 (107) 98 02/18/17 15:58 58 02/18/17 13:45 97.4 60 18 168/72 (104) 98 02/18/17 13:35 02/18/17 12:43 57 16 128/75 (92) 97 Room Air 02/18/17 12:00 96 Room Air I/O 02/18/17 02/18/17 02/18/17 02/19/17 02/19/17 02/19/17 07:00 15:00 23:00 07:00 15:00 23:00 Intake Total 1000 ml 50 ml 1380 ml Output Total 200 ml 200 ml Balance 800 ml -150 ml 1380 ml Intake Oral 50 ml 480 ml IV Total 1000 ml 900 ml Output Urine Total 200 ml 200 ml # Voids 3 # Bowel Movements 0 Result Diagram: 02/18/17 0755 02/18/17 0755 Objective Remarks GENERAL: Well-developed, well-nourished, in no acute distress. alert and orientated HEENT: Head is normocephalic without any lesions or masses noted. Facial features are symmetric. Eyes: Pupils equal round reactive to light. Conjunctivae were clear. Oropharyngeal: Pharynx without any erythema edema. Tongue is midline without deviation. Buccal mucosa is moist without any masses or lesions NECK: Supple without any masses. Trachea midline no deviation. No JVD CARDIAC: Regular rhythm, regular rate. S1/S2 are heard. No murmurs gallops or rubs. LUNGS: Clear to auscultation bilaterally. No wheeze, rhonchi or rales. No use of accessory muscles on inspiration or expiration. ABDOMEN: Soft, nontender. Nondistended. Bowel sounds heard in all 4 quadrants. No organomegaly or masses. Negative rebound, negative guarding EXTREMITIES: No edema, pulses are equal bilaterally. No cyanosis or clubbing NEUROLOGY: Mood and affect appear appropriate. Cranial nerves II through XII grossly intact. Moving all extremities, speech is clear. Patient was able to stand up on his own, however he was a little wobbly on his feet. He was able to walk today approximate 4-5 feet however he was unsteady. Him and his indicate this is much improved from yesterday. He was not even able to stand up or walk yesterday Urinary Catheter: No Vascular Central Line Catheter: No A/P Assessment and Plan Neurological symptoms to include dizziness, slurred speech, weakness, headache, ataxia, MRI/MRA does not indicate any acute abnormality. Patient was unresponsive to Hailey maneuver Neurology evaluated patient and indicated probable positional vertigo labyrinthitis Continue Antivert 25 mg 3 times daily Further testing to include B12, folate, sedimentation rate, RPR, lipid panel , thus far are unremarkable Awaiting PT evaluation. no need for ST/OT since no TIA/CVA. Physical therapy evaluated patient, however she indicated due to lack of personnel she was not able to complete her evaluation. Will return tomorrow do further evaluation and treatment Hypertension Resume patient's home medications Chronic kidney disease stage III Continue monitor renal function Avoid nephrotoxins Lumbar spinal stenosis Physical therapy evaluation Recommend outpatient follow-up DVT prevention Sequential compression devices Discharge Planning Discharge planning delayed due to physical therapy. We'll need to wait until tomorrow for further recommendations Hugh Anand Feb 19, 2017 11:52
[2017-02-19] MEDS: HEPARIN SODIUM - SQ 10,000 UNITS/ML VIAL SQ SCH ×2 (13:14→23:11)
[2017-02-19] MEDS: LISINOPRIL 5 MG TAB PO SCH (16:01)
[2017-02-19] MEDS: ATORVASTATIN 40 MG TAB PO SCH (20:57)
[2017-02-20] VITALS (7 sets, daily range): BP systolic 116–143; BP diastolic 58–76; PULSE 57–84; RESP 12–16; TEMP 96.8–98.6; O2SAT 97–99
[2017-02-20] MEDS: MECLIZINE HCL 25 MG TAB PO SCH ×2 (06:01→12:27)
[2017-02-20] MEDS: SODIUM CHLOR 0.9% 1000 ML INJ 1,000 ML IV SCH (08:20)
[2017-02-20] MEDS: ASPIRIN 81 MG CHEW TAB PO SCH (08:37)
[2017-02-20] MEDS: predniSONE 10 MG TAB PO SCH (08:37)
[2017-02-20] MEDS: THIAMINE HCL 100 MG TAB PO SCH (08:37)
[2017-02-20] MEDS: LISINOPRIL 5 MG TAB PO SCH (08:37)
[2017-02-20] MEDS: SODIUM CHLORIDE 0.9% FLUSH 5 ML FLUSH IV FLUSH SCH (08:37)
[2017-02-20] MEDS: ATENOLOL 50 MG TAB PO SCH (08:37)
[2017-02-20] MEDS: HEPARIN SODIUM - SQ 10,000 UNITS/ML VIAL SQ SCH (12:27)
[2017-02-20] MEDS ORDERED: ASPI81 PO (15:56)
[2017-02-20] MEDS ORDERED: LISI-519 PO (15:56)
[2017-02-20] MEDS ORDERED: MECL1TAB42 PO (15:56)
--- NOTE | 2017-02-20 15:57 | HHI.DCPOC ---
Discharge Care Plan Diagnosis: (1) Vertigo (2) Dizziness, nonspecific (3) Ataxia Goals to Promote Your Health * To prevent worsening of your condition and complications * To maintain your health at the optimal level Directions to Meet Your Goals Take your medications as prescribed Follow your dietary instruction Follow activity as directed Keep your appointments as scheduled Take your immunizations and boosters as scheduled If your symptoms worsen call your PCP, if no PCP go to Urgent Care Center or Emergency Room Smoking is Dangerous to Your Health. Avoid second hand smoke Call the 24-hour hour crisis hotline for domestic abuse at Hugh Anand Feb 20, 2017 15:57
--- NOTE | 2017-02-20 16:06 | HHI.DS ---
Discharge Summary Admission Date Feb 18, 2017 at 12:59 Discharge Date: Feb 20, 2017 Admitting Diagnosis intract dizzyness,ataxia,speech slurring/stuttering,accel htn (1) Dizziness, nonspecific ICD Code: R42 - Dizziness and giddiness Diagnosis: Principal Status: Acute (2) Accelerated hypertension ICD Code: I10 - Essential (primary) hypertension Diagnosis: Principal Status: Acute (3) Ataxia ICD Code: R27.0 - Ataxia, unspecified Diagnosis: Principal Status: Acute (4) Slurred speech ICD Code: R47.81 - Slurred speech Diagnosis: Principal Status: Acute Procedures None Brief History - From Admission Written by Hugh Anand, acting as scribe for Dr. Webb on 02/18/17 at 16 :08. 81-year-old male with known history of hypertension, AAA aneurysm repair, history DVT, hyperlipidemia who presented to hospital because acute onset of neurological symptoms. Patient states that he was in his normal state of health until 1 AM this morning when he got severe dizziness where he states that the room was spinning. Patient indicates that he was having lightheadedness. He could not stand up or walk. He also had slurred speech. Patient denied any fever, chills. He has had some nausea without any vomiting. He has had headache that he states that his normal. He has had weakness and bilateral upper extremities. Patient has undergone multiple radiological studies with MRI of brain which did not indicate any acute abnormality. Cervical spine CT which did not indicate any abnormality. Lumbar spine CT does show spinal stenosis noted at L3-L4, L4-L5, patient had MRI evaluation of his lumbar spine 2 months ago and it did indicate severe spinal stenosis with near complete obliteration of the thecal sac with bilateral neural foraminal encroachment. At the time evaluating the patient he states that he still has significant dizziness despite the use of Antivert. Because of the multiple neurological symptoms it was recommended by the ER physician the patient be admitted for further evaluation and management. CBC/BMP: 02/18/17 0755 02/18/17 0755 Significant Findings Laboratory Tests Test 02/18/17 07:55 02/18/17 14:20 02/18/17 16:27 02/18/17 17:45 Hemoglobin 11.8 GM/DL (13.0-17.0) Hematocrit 36.6 % (39.0-51.0) Mean Corpuscular Volume 78.1 FL (80.0-100.0) Mean Corpuscular Hemoglobin 25.1 PG (27.0-34.0) Activated Partial Thromboplast Time 22.5 SEC (24.3-30.1) Blood Urea Nitrogen 31 MG/DL (7-18) Creatinine 1.90 MG/DL (0.60-1.30) Estimat Glomerular Filtration Rate 34 ML/MIN (>89) Hemoglobin A1c 6.4 % (4.3-6.0) Erythrocyte Sedimentation Rate 36 mm/hr (0-20) Folate GREATER THAN 20.0 NG/ML Test 02/19/17 06:43 Triglycerides Level 167 MG/DL (42-150) Imaging Last Impressions Head Magnetic Resonance Angiography 02/18/17 0000 Signed Impressions: Service Date/Time: Saturday, February 18, 2017 15:48 - CONCLUSION: Negative for major branch vessel occlusion. Josh Borjas MD FACR Brain MRI 02/18/17 0000 Signed Impressions: Service Date/Time: Saturday, February 18, 2017 09:54 - CONCLUSION: Marked periventricular white matter changes with central and cortical atrophy. There is no restricted diffusion to suggest acute ischemic event Josh Borjas MD FACR PE at Discharge GENERAL: Well-developed, well-nourished, in no acute distress. alert and orientated HEENT: Head is normocephalic without any lesions or masses noted. Facial features are symmetric. Eyes: Pupils equal round reactive to light. Conjunctivae were clear. Oropharyngeal: Pharynx without any erythema edema. Tongue is midline without deviation. Buccal mucosa is moist without any masses or lesions NECK: Supple without any masses. Trachea midline no deviation. No JVD CARDIAC: Regular rhythm, regular rate. S1/S2 are heard. No murmurs gallops or rubs. LUNGS: Clear to auscultation bilaterally. No wheeze, rhonchi or rales. No use of accessory muscles on inspiration or expiration. ABDOMEN: Soft, nontender. Nondistended. Bowel sounds heard in all 4 quadrants. No organomegaly or masses. Negative rebound, negative guarding EXTREMITIES: No edema, pulses are equal bilaterally. No cyanosis or clubbing NEUROLOGY: Mood and affect appear appropriate. Cranial nerves II through XII grossly intact. Moving all extremities, speech is clear. Patient was able to stand up on his own, however he was a little wobbly on his feet. He was able to walk today approximate 4-5 feet however he was unsteady. Him and his indicate this is much improved from yesterday. He was not even able to stand up or walk yesterday Hospital Course 81-year-old male who presented to the hospital originally because of acute onset of dizziness at 1 AM on 02/18/17. Patient states that he woke up and had severe dizziness where the room was spinning. He did have some lightheadedness and had difficulty standing up and walking. He was unable to walk at home. As indicated that he did have some slurred speech also. He came to emergency department and CT scan was unremarkable. Patient was given meclizine without any neck response and it was requested by the ER physician that the patient be admitted for further evaluation management. Patient had further neurological workup with MRI and MRA of the brain which is clinically unremarkable for any acute abnormality. Patient had neurological evaluation performed which indicated patient has benign postural vertigo. Recommended Antivert 25 mg 3 times daily. Patient did get physical therapy yesterday late afternoon and they indicated that the patient was too dizzy for her to be able to cannulate safely. Today physical therapy evaluated the patient and was able to walk around the hallway with a walker. Patient states that he has had episodes of this dizziness before. And he usually goes away with time and Antivert. He is feeling better today. He is able to stand up on his own. He is walking with a walker. Discussed with the patient if he felt stable enough to go home. And he is in agreement that he can go home. He does have a walker at home. Patient continue Antivert. It was recommended outpatient undergo vestibular therapy. This will be ordered for him to arrange outpatient physical therapy with vestibular therapy. Patient is clinically stable. Will discharge patient home in stable condition. Pt Condition on Discharge: Stable Discharge Disposition: Discharge Home Discharge Time: > 30 minutes Discharge Instructions DIET: Follow Instructions for: Heart Healthy Diet Activities you can perform: Regular-No Restrictions Activities to Avoid: Driving for 24 hrs Follow up Referrals: PCP Follow-up - 1 Week New Medications: Aspirin (Tgt Aspirin) 81 Mg Chw 81 MG PO DAILY for cardioprotection for 30 Days, EA Lisinopril (Lisinopril) 5 Mg Tab 5 MG PO DAILY for Blood Pressure Management for 30 Days, #30 TAB Meclizine HCl (Meclizine 25) 25 Mg Tab 25 MG PO Q8HR for Vertigo for 10 Days, TAB Continued Medications: Atenolol (Atenolol) 50 Mg Tab 50 MG PO DAILY for Blood Pressure Management, #30 TAB 0 Refills Atorvastatin (Atorvastatin) 40 Mg Tab 40 MG PO HS for Cholesterol Management, #30 TAB 0 Refills Prednisone (Prednisone) 10 Mg Tab 10 MG PO DAILY, TAB 0 Refills Hugh Anand Feb 20, 2017 16:06
--- NOTE | 2017-02-22 15:39 | PD.CONS ---
Assessment and Plan Plan Consult received per stroke order set. EMR reviewed. MRI negative for acute stroke. Neurology consult reviewed and indicates vertigo. Consult deferred due to no acute stroke. Please reconsult as appropriate. Thank you. Milana Key MD Feb 22, 2017 15:39
== END 2017-02-20 17:58 | disposition home or self-care (01) | DRG 149 ==
LOC: PHED 07:33 → PHEDA 12:59 → PH3A 13:38
PROVIDERS: ADMIT Hospitalist; ATTEND Hospitalist
DX: R42 Dizziness and giddiness (principal); Z86.74 Personal history of sudden cardiac arrest; N18.3 Chronic kidney disease, stage 3 (moderate); I12.9 Hypertensive chronic kidney disease with stage 1 through stage 4 chronic kidney disease, or unspecified chronic kidney disease; R47.81 Slurred speech; Z86.718 Personal history of other venous thrombosis and embolism; M48.061 Spinal stenosis, lumbar region without neurogenic claudication; E78.5 Hyperlipidemia, unspecified; F17.210 Nicotine dependence, cigarettes, uncomplicated; K21.9 Gastro-esophageal reflux disease without esophagitis; Z86.79 Personal history of other diseases of the circulatory system
CPT/HCPCS: 70544; 70551; 80048; 80061; 80307; 82607; 82746; 82948; 83036; 85025; 85610; 85652; 85730; 86592; 93005; 96361; 96374; J1644; J2405; J7030; J7512

== ENCOUNTER 2017-09-07 15:15 | Observation (INO) | payer MEDICARE, OTHER ==
[~2017-09-07] VITALS: Ht 160 cm; Wt 63.3 kg
[~2017-09-07 15:15] MED LIST changes: +ASPI81 PO; -DOXA1TAB34 PO; -LACT PO; +LISI-519 PO; +MECL1TAB42 PO
[2017-09-07 15:20] VITALS: BP 137/73; PULSE 72; RESP 14; TEMP 98.6; O2SAT 99
[2017-09-07] MEDS ORDERED: SODIUM CHLORIDE 0.9% FLUSH 10 ML FLUSH IVF PRN (15:30)
[2017-09-07 15:35] LABS: AUTOMATED NEUTROPHIL # 13.5 TH/MM3 (1.8-7.7); BASOPHIL # 0.1 TH/MM3 (0-0.2); BASOPHIL % 0.5 % (0.0-2.0); HEMATOCRIT 37.2 % (39.0-51.0); HEMOGLOBIN 12.4 GM/DL (13.0-17.0); LYMPH % 4.8 % (9.0-44.0); LYMPHOCYTE # 0.7 TH/MM3 (1.0-4.8); MEAN CELL VOLUME 83.7 FL (80.0-100.0); MEAN CORPUSCULAR HEMOGLOBIN 27.9 PG (27.0-34.0); MEAN CORPUSCULAR HGB CONC 33.3 % (32.0-36.0); MEAN PLATELET VOLUME 9.7 FL (7.0-11.0); MONO % 4.6 % (0.0-8.0); MONOCYTE # 0.7 TH/MM3 (0-0.9); NEUT % 90.1 % (16.0-70.0); PLATELET COUNT 221 TH/MM3 (150-450); RED BLOOD COUNT 4.45 MIL/MM3 (4.50-5.90); RED CELL DISTRIBUTION WIDTH 14.4 % (11.6-17.2)
--- NOTE | 2017-09-07 15:40 | PD ---
HPI Time Seen by Provider: 15:24 PFSH Past Medical History Arthritis: Yes Asthma: No Autoimmune Disease: No Heart Rhythm Problems: No Cancer: No Cardiovascular Problems: Yes High Cholesterol: Yes Chest Pain: No Congestive Heart Failure: No COPD: No Cerebrovascular Accident: No Diminished Hearing: No Endocrine: No Gastrointestinal Disorders: Yes GERD: Yes Genitourinary: Yes Hiatal Hernia: No Hypertension: Yes Immune Disorder: No Kidney Stones: Yes Musculoskeletal: Yes Neurologic: Yes Psychiatric: No Reproductive: No Respiratory: Yes Migraines: Yes Renal Failure: No Seizures: No Sleep Apnea: No Ulcer: No Past Surgical History Abdominal Aneurysm Repair: Yes (2014) Abdominal Surgery: Yes ( AAA repair) Appendectomy: Yes Cardiac Surgery: No Cholecystectomy: Yes Ear Surgery: No Endocrine Surgery: No Eye Surgery: No Genitourinary Surgery: No Gynecologic Surgery: No Oral Surgery: No Thoracic Surgery: No Other Surgery: Yes Social History Alcohol Use: No Tobacco Use: Yes (1 cigarette daily) Substance Use: No Allergies-Medications (Allergen,Severity, Reaction): Coded Allergies: No Known Allergies (Unverified Allergy, Unknown, 09/07/17) Reported Meds & Prescriptions Reported Meds & Active Scripts Active Meclizine 25 (Meclizine HCl) 25 Mg Tab 25 Mg PO Q8HR 10 Days Tgt Aspirin (Aspirin) 81 Mg Chw 81 Mg PO DAILY 30 Days Lisinopril 5 Mg Tab 5 Mg PO DAILY 30 Days Reported Atorvastatin (Atorvastatin Calcium) 40 Mg Tab 40 Mg PO HS Prednisone 10 Mg Tab 10 Mg PO DAILY Atenolol 50 Mg Tab 50 Mg PO DAILY Data Data Orders Orders Electrocardiogram (09/07/17 15:24) Ckmb (Isoenzyme) Profile (09/07/17 15:24) Complete Blood Count With Diff (09/07/17 15:24) Comprehensive Metabolic Panel (09/07/17 15:24) Magnesium (Mg) (09/07/17 15:24) Prothrombin Time / Inr (Pt) (09/07/17 15:24) Act Partial Throm Time (Ptt) (09/07/17 15:24) Troponin I (09/07/17 15:24) Lipase (09/07/17 15:24) Ecg Monitoring (09/07/17 15:24) Iv Access Insert/Monitor (09/07/17 15:24) Oximetry (09/07/17 15:24) Oxygen Administration (09/07/17 15:24) Sodium Chloride 0.9% Flush (Ns Flush) (09/07/17 15:30) Chest, Single Ap (09/07/17 ) Aspirin Chew (Aspirin Chew) (09/07/17 15:45) Aspirin Chew (Aspirin Chew) (09/07/17 15:45) Labs Laboratory Tests Test 09/07/17 15:27 Sodium Level 143 MEQ/L Potassium Level 4.7 MEQ/L Chloride Level 111 MEQ/L Mello Ruiz MD September 07, 2017 15:40
[2017-09-07 15:44] LABS: CHLORIDE 111 MEQ/L (98-107); SODIUM (NA) 143 MEQ/L (136-145)
[2017-09-07] MEDS ORDERED: ASPIRIN 81 MG CHEW TAB CHEW ONE ×2 (15:45)
[2017-09-07 15:47] LABS: CALCIUM 8.5 MG/DL (8.5-10.1)
[2017-09-07 15:48] LABS: ALBUMIN 3.3 GM/DL (3.4-5.0); BICARBONATE 22.4 MEQ/L (21.0-32.0); BLOOD UREA NITROGEN 53 MG/DL (7-18); GLUCOSE,RANDOM 170 MG/DL (74-106); MAGNESIUM 2.2 MG/DL (1.5-2.5)
[2017-09-07] MEDS ORDERED: METO1TAB9 PO (15:50)
[2017-09-07 15:51] LABS: ALT (GPT) 31 U/L (12-78); AST (GOT) 12 U/L (15-37); GLOMERULAR FILTRATION RATE 26 ML/MIN (>89)
[2017-09-07 15:52] LABS: TOTAL BILIRUBIN ADULT 0.2 MG/DL (0.2-1.0); TOTAL PROTEIN 6.7 GM/DL (6.4-8.2)
[2017-09-07 15:53] LABS: ALKALINE PHOSPHATASE 117 U/L (45-117)
[2017-09-07 15:56] LABS: TROPONIN I LESS THAN 0.02 NG/ML (0.02-0.05)
[2017-09-07 16:05] LABS: PROTHROMBIN TIME - PATIENT 10.2 SEC (9.8-11.6)
--- NOTE | 2017-09-07 16:20 | PD ---
HPI Chief Complaint: Pain: Acute or Chronic Time Seen by Provider: 15:24 Travel History International Travel<30 days: No Contact w/Intl Traveler<30days: No Traveled to known affect area: No History of Present Illness HPI Plan 82-year-old male with a history of AAA repair presents emergency department for evaluation of intermittent chest pain on and off for the past 3 days. He states it worsened when he exerts himself. Has a history of high blood pressure and high cholesterol. 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 He states currently his pain is absent and as long ceased they still is not hurting him. He denies pain worsening with respiration denies any history of long periods of stasis, denies any radiation to his back arm or jaw. Mild weakness but no nausea no vomiting. Symptoms are moderate, intermittent, worsened with exertion context and associated signs and symptoms as above per [facility] Past Medical History Arthritis: Yes Asthma: No Autoimmune Disease: No Heart Rhythm Problems: No Cancer: No Cardiovascular Problems: Yes High Cholesterol: Yes Chest Pain: No Congestive Heart Failure: No COPD: No Cerebrovascular Accident: No Diminished Hearing: No Endocrine: No Gastrointestinal Disorders: Yes GERD: Yes Genitourinary: Yes Headaches: No Hiatal Hernia: No Hypertension: Yes Immune Disorder: No Kidney Stones: Yes Musculoskeletal: Yes Neurologic: Yes Psychiatric: No Reproductive: No Respiratory: Yes Migraines: Yes Renal Failure: No Seizures: No Sleep Apnea: No Ulcer: No Tetanus Vaccination: > 5 Years Influenza Vaccination: Yes Past Surgical History Abdominal Aneurysm Repair: Yes (2014) Abdominal Surgery: Yes ( AAA repair) Appendectomy: Yes Cardiac Surgery: No Cholecystectomy: Yes Ear Surgery: No Endocrine Surgery: No Eye Surgery: No Genitourinary Surgery: No Gynecologic Surgery: No Oral Surgery: No Thoracic Surgery: No Other Surgery: Yes Social History Alcohol Use: No Tobacco Use: Yes (1 cigarette daily) Substance Use: No Allergies-Medications (Allergen,Severity, Reaction): Coded Allergies: No Known Allergies (Unverified Allergy, Unknown, 09/07/17) Reported Meds & Prescriptions Reported Meds & Active Scripts Active Tgt Aspirin (Aspirin) 81 Mg Chw 81 Mg PO DAILY 30 Days Lisinopril 5 Mg Tab 5 Mg PO DAILY 30 Days Reported Metoprolol Succinate ER 24 HR (Metoprolol Succinate) 50 Mg Tab 50 Mg PO DAILY Prednisone 10 Mg Tab 10 Mg PO DAILY Review of Systems Except as stated in HPI: all other systems reviewed are Neg Physical Exam Narrative GENERAL: Well-developed well-nourished no obvious distress SKIN: Focused skin assessment warm/dry. Well-healed midline abdominal scar peer HEAD: Atraumatic. Normocephalic. EYES: Pupils equal and round. No scleral icterus. No injection or drainage. ENT: No nasal bleeding or discharge. Mucous membranes pink and moist. NECK: Trachea midline. No JVD. CARDIOVASCULAR: Regular rate and rhythm. No murmur appreciated. 2+ bilateral equal pulses in all 4 extremities, no murmurs gallops or rubs peer RESPIRATORY: No accessory muscle use. Clear to auscultation. Breath sounds equal bilaterally. GASTROINTESTINAL: Abdomen soft, non-tender, nondistended. Hepatic and splenic margins not palpable. MUSCULOSKELETAL: No obvious deformities. No clubbing. No cyanosis. No edema. NEUROLOGICAL: Awake and alert. No obvious cranial nerve deficits. Motor grossly within normal limits. Normal speech. PSYCHIATRIC: Appropriate mood and affect; insight and judgment normal. Data Data Last Documented VS Vital Signs Date Time Temp Pulse Resp B/P (MAP) Pulse Ox O2 Delivery O2 Flow Rate FiO2 09/07/17 16:25 67 14 145/80 (101) 99 Room Air 09/07/17 15:20 98.6 Orders Orders Electrocardiogram (09/07/17 15:24) Ckmb (Isoenzyme) Profile (09/07/17 15:24) Complete Blood Count With Diff (09/07/17 15:24) Comprehensive Metabolic Panel (09/07/17 15:24) Magnesium (Mg) (09/07/17 15:24) Prothrombin Time / Inr (Pt) (09/07/17 15:24) Act Partial Throm Time (Ptt) (09/07/17 15:24) Troponin I (09/07/17 15:24) Lipase (09/07/17 15:24) Ecg Monitoring (09/07/17 15:24) Iv Access Insert/Monitor (09/07/17 15:24) Oximetry (09/07/17 15:24) Oxygen Administration (09/07/17 15:24) Sodium Chloride 0.9% Flush (Ns Flush) (09/07/17 15:30) Chest, Single Ap (09/07/17 ) Aspirin Chew (Aspirin Chew) (09/07/17 15:45) Aspirin Chew (Aspirin Chew) (09/07/17 15:45) Admit Order (Ed Use Only) (09/07/17 ) Labs Laboratory Tests Test 09/07/17 15:27 White Blood Count 15.0 TH/MM3 Red Blood Count 4.45 MIL/MM3 Hemoglobin 12.4 GM/DL Hematocrit 37.2 % Mean Corpuscular Volume 83.7 FL Mean Corpuscular Hemoglobin 27.9 PG Mean Corpuscular Hemoglobin Concent 33.3 % Red Cell Distribution Width 14.4 % Platelet Count 221 TH/MM3 Mean Platelet Volume 9.7 FL Neutrophils (%) (Auto) 90.1 % Lymphocytes (%) (Auto) 4.8 % Monocytes (%) (Auto) 4.6 % Eosinophils (%) (Auto) 0.0 % Basophils (%) (Auto) 0.5 % Neutrophils # (Auto) 13.5 TH/MM3 Lymphocytes # (Auto) 0.7 TH/MM3 Monocytes # (Auto) 0.7 TH/MM3 Eosinophils # (Auto) 0.0 TH/MM3 Basophils # (Auto) 0.1 TH/MM3 CBC Comment DIFF FINAL Differential Comment Prothrombin Time 10.2 SEC Prothromb Time International Ratio 1.0 RATIO Activated Partial Thromboplast Time 21.5 SEC Blood Urea Nitrogen 53 MG/DL Creatinine 2.40 MG/DL Random Glucose 170 MG/DL Total Protein 6.7 GM/DL Albumin 3.3 GM/DL Calcium Level 8.5 MG/DL Magnesium Level 2.2 MG/DL Alkaline Phosphatase 117 U/L Aspartate Amino Transf (AST/SGOT) 12 U/L Alanine Aminotransferase (ALT/SGPT) 31 U/L Total Bilirubin 0.2 MG/DL Sodium Level 143 MEQ/L Potassium Level 4.7 MEQ/L Chloride Level 111 MEQ/L Carbon Dioxide Level 22.4 MEQ/L Anion Gap 10 MEQ/L Estimat Glomerular Filtration Rate 26 ML/MIN Total Creatine Kinase 35 U/L Troponin I LESS THAN 0.02 NG/ML Lipase 313 U/L MDM Medical Decision Making Medical Screen Exam Complete: Yes Emergency Medical Condition: Yes Differential Diagnosis Ruptured AAA unlikely, aortic dissection unlikely, chest pain, pulmonary embolism unlikely. Narrative Course Patient room to the emergency department, has elevated creatinine, I think the risk to his kidneys outweigh the pretest probability of dissection or ruptured AAA which I think is very low. His abdomen is benign. His heart and lung examination is completely benign. Review the patient's records shows that he was admitted one time last year for bacteremia and MSSA, he was worked up for endocarditis had a NATHAN which was negative. Ultimately he was discharged on p.o. antibiotics. No fevers today and he does not appear toxic. No murmurs heard today, discussed with patient that I would recommend that he be admitted to the hospitalist observation for further workup of his chest pain and he is agreeable. Diagnosis Primary Impression: Chest pain Qualified Codes: R07.9 - Chest pain, unspecified Admitting Information Admitting Physician Requests: Observation Condition: Stable Mello Ruiz MD September 07, 2017 16:20
[2017-09-07 16:25] VITALS: BP 145/80; PULSE 67; RESP 14; O2SAT 99
--- NOTE | 2017-09-07 16:38 | RADRPT ---
EXAM DATE: 09/07/2017 4:10 PM EDT AGE/SEX: 82 years / Male INDICATIONS: Chest pain for 3 days CLINICAL DATA: This is the patient's initial encounter. Patient reports that signs and symptoms have been present for 3 days and indicates a pain score of 5/10. MEDICAL/SURGICAL HISTORY: . Aneurysm, abdominal. Hypertension. Renal calculi . Abdominal aorti c aneurysm repair. Appendectomy COMPARISON: [facility], CHEST SINGLE AP, 11/16/2016. . FINDINGS: There are chronic interstitial changes throughout the pulmonary parenchyma. The heart and mediastinal contours within normal limits. The visualized bony structures demonstrate degenerative changes withi n the shoulders but are otherwise intact. CONCLUSION: No acute cardiopulmonary findings. Chronic appearing parenchymal interstitial changes. Stable compared to a prior dated 11/16/2016. Electronically signed by: Feliberto Borjas MD 09/07/2017 4:37 PM EDT
--- NOTE | 2017-09-07 17:46 | HHI.HP ---
[facility] Chaparro Pham MD Admission Diagnosis Diagnoses: (1) Atypical chest pain Chief Complaint: Chest pressure Travel History International Travel<30 Days: No Contact w/Intl Traveler <30 Da: No Traveled to Known Affected Are: No History of Present Illness 81-year-old male with known history of hypertension, AAA aneurysm repair, history DVT, hyperlipidemia who presented to hospital because intermittent chest pressure x 3 days duration , worse with exertion and sneezing. He endorses some mild shortness of breath however denies any diaphoresis or radiation. He reports 20lbs weight gain over the past 12 months. On admission, patient's vitals are stable and initial cardiac enzyme and EKG are unremarkable. Review of Systems Except as stated in HPI: all other systems reviewed are Neg Past Family Social History Past Medical History Hypertension Hyperlipidemia History DVT History of cardiac arrest Past Surgical History Repair of ruptured abdominal aortic aneurysm with a tube graft Appendectomy Cholecystectomy Reported Medications Tgt Aspirin (Aspirin) 81 Mg Chw 81 Mg PO DAILY 30 Days Lisinopril 5 Mg Tab 5 Mg PO DAILY 30 Days Reported Metoprolol Succinate ER 24 HR (Metoprolol Succinate) 50 Mg Tab 50 Mg PO DAILY Atorvastatin (Atorvastatin Calcium) 40 Mg Tab 40 Mg PO HS Prednisone 10 Mg Tab 10 Mg PO DAILY Allergies: Coded Allergies: No Known Allergies (Unverified Allergy, Unknown, 09/07/17) Social History Alcohol Use: No Tobacco Use: Yes (1 cigarette daily) Substance Use: No Physical Exam Vital Signs Vital Signs Date Time Temp Pulse Resp B/P (MAP) Pulse Ox O2 Delivery O2 Flow Rate FiO2 09/07/17 16:25 67 14 145/80 (101) 99 Room Air 09/07/17 15:20 99 Room Air 09/07/17 15:20 98.6 72 14 137/73 (94) 99 09/07/17 15:20 99 Room Air 09/07/17 15:20 72 Physical Exam GENERAL: This is a well-nourished, well-developed patient, in no apparent distress. SKIN: No rashes, ecchymoses or lesions. Cool and dry. HEAD: Atraumatic. Normocephalic. No temporal or scalp tenderness. EYES: Pupils equal round and reactive. Extraocular motions intact. No scleral icterus. No injection or drainage. ENT: Nose without bleeding, purulent drainage or septal hematoma. Throat without erythema, tonsillar hypertrophy or exudate. Uvula midline. Airway patent. NECK: Trachea midline. No JVD or lymphadenopathy. Supple, nontender, no meningeal signs. CARDIOVASCULAR: Regular rate and rhythm without murmurs, gallops, or rubs. RESPIRATORY: Clear to auscultation. Breath sounds equal bilaterally. No wheezes , rales, or rhonchi. GASTROINTESTINAL: Abdomen soft, non-tender, nondistended. No hepato-splenomegaly , or palpable masses. No guarding. MUSCULOSKELETAL: Extremities without clubbing, cyanosis, or edema. No joint tenderness, effusion, or edema noted. No calf tenderness. Negative Homans sign bilaterally. NEUROLOGICAL: Awake and alert. Cranial nerves II through XII intact. Motor and sensory grossly within normal limits. Five out of 5 muscle strength in all muscle groups. Normal speech. Laboratory Laboratory Tests Test 09/07/17 15:27 White Blood Count 15.0 Red Blood Count 4.45 Hemoglobin 12.4 Hematocrit 37.2 Mean Corpuscular Volume 83.7 Mean Corpuscular Hemoglobin 27.9 Mean Corpuscular Hemoglobin Concent 33.3 Red Cell Distribution Width 14.4 Platelet Count 221 Mean Platelet Volume 9.7 Neutrophils (%) (Auto) 90.1 Lymphocytes (%) (Auto) 4.8 Monocytes (%) (Auto) 4.6 Eosinophils (%) (Auto) 0.0 Basophils (%) (Auto) 0.5 Neutrophils # (Auto) 13.5 Lymphocytes # (Auto) 0.7 Monocytes # (Auto) 0.7 Eosinophils # (Auto) 0.0 Basophils # (Auto) 0.1 CBC Comment DIFF FINAL Differential Comment Prothrombin Time 10.2 Prothromb Time International Ratio 1.0 Activated Partial Thromboplast Time 21.5 Blood Urea Nitrogen 53 Creatinine 2.40 Random Glucose 170 Total Protein 6.7 Albumin 3.3 Calcium Level 8.5 Magnesium Level 2.2 Alkaline Phosphatase 117 Aspartate Amino Transf (AST/SGOT) 12 Alanine Aminotransferase (ALT/SGPT) 31 Total Bilirubin 0.2 Sodium Level 143 Potassium Level 4.7 Chloride Level 111 Carbon Dioxide Level 22.4 Anion Gap 10 Estimat Glomerular Filtration Rate 26 Total Creatine Kinase 35 Troponin I LESS THAN 0.02 Lipase 313 Result Diagram: 09/07/17 1527 09/07/17 1527 Imaging Last Impressions Chest X-Ray 09/07/17 0000 Signed Impressions: CONCLUSION: No acute cardiopulmonary findings. Chronic appearing parenchymal interstitial changes. Stable compared to a prior dated 11/16/2016. Septic Shock Reassessment Septic shock perfusion: reassessment completed Caprini VTE Risk Assessment Caprini VTE Risk Assessment: Mod/High Risk (score >= 2) Caprini Risk Assessment Model Point Value = 1 Point Value = 2 Point Value = 3 Point Value = 5 Age 41-60 Minor surgery BMI > 25 kg/m2 Swollen legs Varicose veins or History of unexplained or recurrent spontaneous Oral contraceptives or hormone replacement Sepsis (< 1 month) Serious lung disease, including pneumonia (< 1 month) Abnormal pulmonary function Acute myocardial infarction Congestive heart failure (< 1 month) History of inflammatory bowel disease Medical patient at bed rest Age 61-74 Arthroscopic surgery Major open surgery (> 45 min) Laparoscopic surgery (> 45 min) Malignancy Confined to bed (> 72 hours) Immobilizing plaster cast Central venous access Age >= 75 History of VTE Family history of VTE Factor V Leiden Prothrombin [id number] Lupus anticoagulant Anticardiolipin antibodies Elevated serum homocysteine Heparin-induced thrombocytopenia Other congenital or acquired thrombophilia Stroke (< 1 month) Elective arthroplasty Hip, pelvis, or leg fracture Acute spinal cord injury (< 1 month) Prophylaxis Regimen Total Risk Factor Score Risk Level Prophylaxis Regimen 0-1 Low Early ambulation 2 Moderate Order ONE of the following: *Sequential Compression Device (SCD) *Heparin 5000 units SQ BID 3-4 Higher Order ONE of the following medications: *Heparin 5000 units SQ TID *Enoxaparin/Lovenox 40 mg SQ daily (WT < 150 kg, CrCl > 30 mL/min) *Enoxaparin/Lovenox 30 mg SQ daily (WT < 150 kg, CrCl > 10-29 mL/min) *Enoxaparin/Lovenox 30 mg SQ BID (WT < 150 kg, CrCl > 30 mL/min) AND/OR *Sequential Compression Device (SCD) 5 or more Highest Order ONE of the following medications: *Heparin 5000 units SQ TID (Preferred with Epidurals) *Enoxaparin/Lovenox 40 mg SQ daily (WT < 150 kg, CrCl > 30 mL/min) *Enoxaparin/Lovenox 30 mg SQ daily (WT < 150 kg, CrCl > 10-29 mL/min) *Enoxaparin/Lovenox 30 mg SQ BID (WT < 150 kg, CrCl > 30 mL/min) AND *Sequential Compression Device (SCD) Assessment and Plan Problem List: (1) Atypical chest pain ICD Code: R07.89 - Other chest pain Assessment and Plan 82-year-old man with Atypical chest pain Chest X ray noted and review by me and stable from previous study Rule out ACS per protocol with serial cardiac enzyme and EKGs Likely nuclear stress test in a.m. Continue with aspirin/beta fran/statin/nitro sublingual as needed Telemetry monitoring Cardiology consultation if ACS on nuclear stress test positive Acute on chronic kidney disease stage III Stage Gentle IVF hydration Hold all nephrotoxic Monitor Bun/Cr Hypertension resume BB except RADHA-I Hyperlipidemia Resume Statin Normochromic normocytic anemia H/H stable and continue to monitor Elevated Blood Glucose Last HgA1c of 6.4 02/18/17; repeat HgA1c and treat accordingly DVT prophylaxis: B-SCDs Code Status Full code Discussed Condition With Patient, ED physician Burke See MD September 07, 2017 17:46
[2017-09-07] MEDS ORDERED: ONDANSETRON HCL 4 MG/2 ML VIAL IV PUSH PRN (18:00)
[2017-09-07] MEDS ORDERED: ACETAMINOPHEN/HYDROcodone 325 MG/7.5 MG TAB PO PRN (18:00)
[2017-09-07] MEDS ORDERED: TEMAZEPAM 15 MG CAP PO PRN (18:00)
[2017-09-07] MEDS ORDERED: SODIUM CHLORIDE 0.9% FLUSH 10 ML FLUSH IV FLUSH PRN (18:00)
[2017-09-07] MEDS ORDERED: ACETAMINOPHEN 500 MG CPLT PO PRN (18:00)
[2017-09-07] MEDS ORDERED: MORPHINE SULFATE 4 MG/ML INJ IV PUSH PRN (18:00)
[2017-09-07] MEDS ORDERED: hydrALAZINE HCL 25 MG TAB PO PRN (18:00)
[2017-09-07] MEDS ORDERED: NITROGLYCERIN 0.4 MG SL 25 TABS/BTL SL PRN (18:00)
[2017-09-07] MEDS ORDERED: RESP: ALBUTEROL 2.5 MG/IPRATROPIUM 0.5 MG NEB (PRN) NEB (18:00)
[2017-09-07 18:05] VITALS: BP 140/83; PULSE 62; RESP 16; O2SAT 100
[2017-09-07] MEDS: SODIUM CHLOR 0.9% 1000 ML INJ 1,000 ML IV SCH (18:11)
[2017-09-07 19:14] LABS: TROPONIN I LESS THAN 0.02 NG/ML (0.02-0.05)
[2017-09-07 19:17] VITALS: BP 165/90; PULSE 66; RESP 16; O2SAT 99
[2017-09-07] MEDS ORDERED: ATORVASTATIN 40 MG TAB PO SCH (21:00)
[2017-09-07] MEDS: SODIUM CHLORIDE 0.9% FLUSH 10 ML FLUSH IV FLUSH SCH (21:58)
[2017-09-07] MEDS: FAMOTIDINE 20 MG TAB PO SCH (21:58)
[2017-09-07 22:23] VITALS: O2SAT 98
[2017-09-07 22:24] LABS: CHLORIDE 111 MEQ/L (98-107); SODIUM (NA) 141 MEQ/L (136-145)
[2017-09-07 22:27] LABS: BICARBONATE 21.5 MEQ/L (21.0-32.0); GLUCOSE,RANDOM 207 MG/DL (74-106); MAGNESIUM 2.2 MG/DL (1.5-2.5)
[2017-09-07 22:28] LABS: BLOOD UREA NITROGEN 54 MG/DL (7-18)
[2017-09-07 22:31] LABS: GLOMERULAR FILTRATION RATE 30 ML/MIN (>89)
[2017-09-07 22:36] LABS: TROPONIN I LESS THAN 0.02 NG/ML (0.02-0.05)
[2017-09-07 23:00] VITALS: PULSE 59
[2017-09-08 04:00] VITALS: BP 161/91; PULSE 60; RESP 20; TEMP 97.2; O2SAT 99
[2017-09-08 07:50] VITALS: BP 171/94; PULSE 67; RESP 20; TEMP 97.5; O2SAT 96
[2017-09-08 08:00] VITALS: PULSE 60
[2017-09-08] MEDS: SODIUM CHLOR 0.9% 1000 ML INJ 1,000 ML IV SCH (08:33)
[2017-09-08] MEDS: SODIUM CHLORIDE 0.9% FLUSH 10 ML FLUSH IV FLUSH SCH (08:33)
[2017-09-08] MEDS: FAMOTIDINE 20 MG TAB PO SCH (08:34)
[2017-09-08] MEDS ORDERED: ASPIRIN 325 MG TAB PO SCH (09:00)
[2017-09-08] MEDS ORDERED: METOPROLOL SUCCINATE 50 MG EXTENDED RELEASE TAB PO SCH (09:00)
[2017-09-08] MEDS ORDERED: predniSONE 10 MG TAB PO SCH (09:00)
[2017-09-08 10:28] LABS: CHOLESTEROL 174 MG/DL (120-200)
[2017-09-08 10:30] LABS: CHOLESTEROL/ HDL RATIO 3.26 RATIO; HDL CHOLESTEROL 53.3 MG/DL (40.0-60.0); LDL CHOLESTEROL 92 MG/DL (0-99); TRIGLYCERIDES 142 MG/DL (42-150)
--- NOTE | 2017-09-08 10:36 | HHI.PR ---
Subjective Remarks Follow-up atypical chest pain September 08, 2017 -patient seen and examined, continue to complain of chest pressure with exertion. Currently n.p.o. pending nuclear stress test Objective Vitals Vital Signs Date Time Temp Pulse Resp B/P (MAP) Pulse Ox O2 Delivery O2 Flow Rate FiO2 09/08/17 07:50 97.5 67 20 171/94 (119) 96 09/08/17 04:00 97.2 60 20 161/91 (114) 99 09/07/17 23:00 59 09/07/17 22:23 98 21 09/07/17 19:41 66 16 99 09/07/17 19:17 66 16 165/90 (115) 99 Room Air 09/07/17 18:05 62 16 140/83 (102) 100 Room Air 09/07/17 16:25 67 14 145/80 (101) 99 Room Air 09/07/17 15:20 99 Room Air 09/07/17 15:20 98.6 72 14 137/73 (94) 99 09/07/17 15:20 99 Room Air 09/07/17 15:20 72 I/O 09/07/17 09/07/17 09/07/17 09/08/17 09/08/17 09/08/17 07:00 15:00 23:00 07:00 15:00 23:00 Intake Total 667 ml Output Total 200 ml 575 ml Balance -200 ml 92 ml Intake Oral 0 ml IV Total 667 ml Output Urine Total 200 ml 575 ml Result Diagram: 09/07/17 1527 09/07/17 2200 Imaging Last Impressions Chest X-Ray 09/07/17 0000 Signed Impressions: CONCLUSION: No acute cardiopulmonary findings. Chronic appearing parenchymal interstitial changes. Stable compared to a prior dated 11/16/2016. Objective Remarks GENERAL: NAD SKIN: Warm and dry. HEAD: Normocephalic. EYES: No scleral icterus. No injection or drainage. NECK: Supple, trachea midline. No JVD or lymphadenopathy. CARDIOVASCULAR: Regular rate and rhythm without murmurs, gallops, or rubs. RESPIRATORY: Breath sounds equal bilaterally. No accessory muscle use. GASTROINTESTINAL: Abdomen soft, non-tender, nondistended. MUSCULOSKELETAL: No cyanosis, or edema. BACK: Nontender without obvious deformity. No CVA tenderness. A/P Problem List: (1) Atypical chest pain ICD Code: R07.89 - Other chest pain Assessment and Plan 82-year-old man with Atypical chest pain Chest X ray noted and review by me and stable from previous study ACS ruled out per protocol with serial cardiac enzyme and EKGs Plan for nuclear stress test today Continue with aspirin/beta fran/statin/nitro sublingual as needed Telemetry monitoring Cardiology consultation if ACS on nuclear stress test positive Acute on chronic kidney disease stage III Continue gentle IVF hydration Hold all nephrotoxic Monitor Bun/Cr Hypertension Continue BB except RADHA-I Hyperlipidemia Continue statin Normochromic normocytic anemia H/H stable and continue to monitor Elevated Blood Glucose Last HgA1c of 6.4 02/18/17; repeat HgA1c pending and treat accordingly DVT prophylaxis: B-SCDs Discharge Planning Discharge patient to home Condition on discharge: Improved Regular Diet as tolerated Ad Myah activity Rx written:see EMR Follow-up with primary care physician in 1 week Burke See MD September 08, 2017 10:36
--- NOTE | 2017-09-08 11:42 | RADRPT ---
EXAM DATE: 09/08/2017 11:25 AM EDT AGE/SEX: 82 years / Male INDICATIONS:Angina. . Chest pain with weakness. CLINICAL DATA: This is the patient's initial encounter. Patient reports that signs and symptoms have been present for 3 days and indicates a pain score of 3/10. MEDICAL/SURGICAL HISTORY: Hypercholesterolemia. Hypertension. Smoker. Abdominal aortic aneury sm repair. Appendectomy. Cholecystectomy. COMPARISON: No prior [place] exams available for comparison. DOSE: 26.9 mCi Tc 99m Myoview at stress 8.7 mCi [id number] at rest 0.4 mg Lexiscan STRESS SYMPTOMS: Dyspnea and numbness. EJECTION FRACTION: 53 % TECHNIQUE: The patient underwent pharmacologic stress with infusion of prescribed dose. Continuous ECG tracing was monitored during stress. Gated SPECT imaging was performed after stress and conventi onal SPECT imaging was performed at rest. The examination was performed on a SPECT/CT scanner, both attenuation and non-corrected datasets were reviewed. FINDINGS: Distribution: The maximum perfused segment at stress is in the anterolateral wall. Perfusion Study: No reversible perfusion defects. Matched defect towards the apex. Gated Study: There are intact wall motion and wall thickening without hypokinetic or dyskinetic segm ents. The ejection fraction is calculated at 53%. RISK CATEGORY: Intermediate (1-3 % Annual Mortality Rate) CONCLUSION: 1. No reversible perfusion defects to suggest ischemia. 2. Ejection fraction 53%. Electronically signed by: Burke Webber MD 09/08/2017 11:41 AM EDT
[2017-09-08 11:44] VITALS: O2SAT 96
[2017-09-08 11:50] VITALS: BP 160/84; PULSE 74; RESP 20; TEMP 99.6; O2SAT 95
--- NOTE | 2017-09-08 11:58 | HHI.DCPOC ---
Discharge Care Plan Diagnosis: (1) Atypical chest pain (2) Renal insufficiency (3) Hypertension Goals to Promote Your Health * To prevent worsening of your condition and complications * To maintain your health at the optimal level Directions to Meet Your Goals Take your medications as prescribed Follow your dietary instruction Follow activity as directed Keep your appointments as scheduled Take your immunizations and boosters as scheduled If your symptoms worsen call your PCP, if no PCP go to Urgent Care Center or Emergency Room Smoking is Dangerous to Your Health. Avoid second hand smoke Call the 24-hour hour crisis hotline for domestic abuse at [facility] September 08, 2017 11:58
[2017-09-08] MEDS ORDERED: AMLO5TAB2 PO (12:08)
--- NOTE | 2017-09-08 14:51 | TR ---
Date Performed: 09/08/2017 Time Performed: 10:27:59 DOCTOR: Darryn Camacho DRUG LIST: CLINICAL HISTORY: REASON FOR TEST: Chest pain REASON FOR ENDING: OBSERVATION: CONCLUSION: COMMENTS: Lexiscan stress test was performed under standard four minute protocol. Radionuclide was injected one minute prior to ending the test. No electrocardiographic abormalities were present t o suggest ischemia. Nuclear imaging and interpretation are pending.
--- NOTE | 2017-09-08 14:56 | EKG ---
Date Performed: 09/07/2017 Time Performed: 21:54:47 PTAGE: 82 years EKG: Sinus rhythm Nonspecific ST and T wave abnormalities ABNORMAL ECG PREVIOUS TRACING : 09/07/2017 19.19 Since previous tracing, no significant change noted DOCTOR: Darryn Camacho Interpretating Date/Time 09/08/2017 14:54:34
--- NOTE | 2017-09-08 14:57 | EKG ---
Date Performed: 09/07/2017 Time Performed: 19:19:37 PTAGE: 82 years EKG: Sinus rhythm MINIMAL ST DEPRESSION BORDERLINE ECG PREVIOUS TRACING : 09/07/2017 15.21 Since previous tracing, no significant change noted DOCTOR: Darryn Camacho Interpretating Date/Time 09/08/2017 14:54:58
--- NOTE | 2017-09-08 14:59 | EKG ---
Date Performed: 09/07/2017 Time Performed: 15:21:05 PTAGE: 82 years EKG: Sinus rhythm NORMAL ECG PREVIOUS TRACING : 02/18/2017 07.41 Since previous tracing, no significant change noted DOCTOR: Darryn Camacho Interpretating Date/Time 09/08/2017 14:57:02
[2017-09-08 16:23] LABS: HEMOGLOBIN A1C 6.2 % (4.3-6.0)
[2017-09-08] MEDS ORDERED: REGADENOSON INJ 0.4 MG/5 ML SYR IV ONE (17:47)
== END 2017-09-08 12:55 | disposition home or self-care (01) ==
LOC: PHED 15:15 → PHEDA 17:46 → PH3A 19:29
PROVIDERS: ADMIT Hospitalist; ATTEND Hospitalist
DX: R07.89 Other chest pain (principal); R53.1 Weakness; K21.9 Gastro-esophageal reflux disease without esophagitis; I12.9 Hypertensive chronic kidney disease with stage 1 through stage 4 chronic kidney disease, or unspecified chronic kidney disease; N18.3 Chronic kidney disease, stage 3 (moderate); G43.909 Migraine, unspecified, not intractable, without status migrainosus; F17.210 Nicotine dependence, cigarettes, uncomplicated; E78.5 Hyperlipidemia, unspecified; D64.9 Anemia, unspecified; R73.9 Hyperglycemia, unspecified; R94.31 Abnormal electrocardiogram [ECG] [EKG]; Z86.718 Personal history of other venous thrombosis and embolism
CPT/HCPCS: 71045; 78452; 80053; 80061; 82550; 83036; 83690; 83735; 84484; 85025; 85610; 85730; 93005; 93017; 96360; 96361; 99285; A9502; G0378; J2785; J7030; J7512; 80048